=== PATIENT | female | born 1935 | race Caucasian/White ===

== ENCOUNTER → 2016-12-17 | Outpatient (CLI) | payer MEDICARE, BC ==
--- NOTE | 2016-12-17 13:22 | MM ---
Reason for exam: screening (asymptomatic). Last mammogram was performed 1 year ago. History: Patient is postmenopausal. Took estrogen for 15 years. Physical Findings: A clinical breast exam by your physician is recommended on an annual basis and results should be correlated with mammographic findings. MG 3D Screening Mammo W/Cad Bilateral CC and MLO view(s) were taken. Prior study comparison: December 17, 2015, bilateral MG 3d screening mammo w/cad. December 15, 2014, bilateral MG screening mammo w CAD. December 14, 2013, bilateral digital screening mammo w/CAD. The breast tissue is heterogeneously dense. This may lower the sensitivity of mammography. Finding: There are typically benign vascular calcifications in both breasts. There is no discrete abnormality. ASSESSMENT: Benign, BI-RAD 2 RECOMMENDATION: Routine screening mammogram of both breasts in 1 year.
== END | disposition home or self-care (01) ==
LOC: RADMAMWWP 10:58
PROVIDERS: ATTEND Internal Medicine
DX: Z12.31 Encounter for screening mammogram for malignant neoplasm of breast (principal)
CPT/HCPCS: 77063; G0202

== ENCOUNTER → 2017-12-23 | Outpatient (CLI) | payer MEDICARE ==
--- NOTE | 2017-12-25 10:30 | MM ---
Reason for exam: screening (asymptomatic). Last mammogram was performed 1 year ago. History: Patient is postmenopausal. Took estrogen for 15 years. Physical Findings: A clinical breast exam by your physician is recommended on an annual basis and results should be correlated with mammographic findings. MG 3D Screening Mammo W/Cad Bilateral CC and MLO view(s) were taken. Prior study comparison: December 17, 2016, bilateral MG 3d screening mammo w/cad. December 17, 2015, bilateral MG 3d screening mammo w/cad. The breast tissue is heterogeneously dense. This may lower the sensitivity of mammography. New right breast medial asymmetry at posterior depth measuring 3mm. ASSESSMENT: Incomplete: need additional imaging evaluation, BI-RAD 0 RECOMMENDATION: Special view mammogram of the right breast. If lesion persists on supplemental views, image directed ultrasound is recommended. [facility] will attempt to contact patient to return for supplemental views and ultrasound if indicated.
== END | disposition home or self-care (01) ==
LOC: RADMAMWWP 15:13
PROVIDERS: ATTEND Internal Medicine
DX: Z12.31 Encounter for screening mammogram for malignant neoplasm of breast (principal)
CPT/HCPCS: 77063; 77067

== ENCOUNTER → 2017-12-29 | Outpatient (CLI) | payer MEDICARE ==
--- NOTE | 2017-12-29 11:20 | MM ---
Reason for exam: additional evaluation requested from abnormal screening. Last mammogram was performed less than 1 month ago. History: Patient is postmenopausal and history of other cancer. Took estrogen for 15 years. Physical Findings: Nurse did not find any significant physical abnormalities on exam. MG 3D Work Up W/Cad RT CC, MLO, LM, and spot compression CC view(s) were taken of the right breast. Prior study comparison: December 23, 2017, bilateral MG 3d screening mammo w/cad. December 17, 2016, bilateral MG 3d screening mammo w/cad. The breast tissue is heterogeneously dense. This may lower the sensitivity of mammography. No distinct lesion persist on additional images. These results were verbally communicated with the patient and result sheet given to the patient on 12/29/17. ASSESSMENT: Benign, BI-RAD 2 RECOMMENDATION: Return to routine screening mammogram schedule for both breasts.
== END ==
LOC: RADMAMWWP 10:09
PROVIDERS: ATTEND Internal Medicine
DX: R92.8 Other abnormal and inconclusive findings on diagnostic imaging of breast (principal)
CPT/HCPCS: 77065; G0279

== ENCOUNTER → 2019-03-30 | Outpatient (CLI) | payer MEDICARE ==
--- NOTE | 2019-03-31 14:00 | MM ---
Reason for exam: screening (asymptomatic). Last mammogram was performed 1 year and 3 months ago. History: Patient is postmenopausal and history of other cancer. Took estrogen for 15 years. Physical Findings: A clinical breast exam by your physician is recommended on an annual basis and results should be correlated with mammographic findings. MG 3D Screening Mammo W/Cad Bilateral CC and MLO view(s) were taken. Prior study comparison: December 29, 2017, right breast MG 3d work up w/cad RT. December 23, 2017, bilateral MG 3d screening mammo w/cad. The breast tissue is heterogeneously dense. This may lower the sensitivity of mammography. Benign appearing bilateral calcifications. No suspicious abnormality. No significant changes when compared with prior studies. ASSESSMENT: Benign, BI-RAD 2 RECOMMENDATION: Routine screening mammogram of both breasts in 1 year.
== END | disposition home or self-care (01) ==
LOC: RADMAMWWP 10:43
PROVIDERS: ATTEND Internal Medicine
DX: Z12.31 Encounter for screening mammogram for malignant neoplasm of breast (principal)
CPT/HCPCS: 77063; 77067

== ENCOUNTER 2019-03-31 11:35 | Inpatient (IN) | payer MEDICARE ==
[2019-03-31] MEDS ORDERED: FUROSEMIDE 10 MG/ML 4 ML VIAL IV STA (11:48)
[2019-03-31] MEDS ORDERED: IPRATROPIUM-ALBUTEROL 3 ML NEB INHALATION STA ×2 (11:48→13:36)
[2019-03-31 12:13] LABS: Basophils % (A) 1 %; Eosinophils # (A) 0.1 k/uL (0-0.7); Eosinophils % (A) 1 %; HCT 37.5 % (34.0-46.0); HGB 11.8 gm/dL (11.4-16.0); Lymphocytes % (A) 15 %; MCHC 31.5 g/dL (31.0-37.0); MCV 92.2 fL (80.0-100.0); Mean Platelet Volume 7.6; Monocytes # (A) 0.5 k/uL (0-1.0); Monocytes % (A) 8 %; Neutrophils # (A) 4.6 k/uL (1.3-7.7); Neutrophils % (A) 73 %; Platelet Count 218 k/uL (150-450); RBC 4.06 m/uL (3.80-5.40); RDW 14.9 % (11.5-15.5); WBC 6.3 k/uL (3.8-10.6)
[2019-03-31 12:17] LABS: Albumin 3.8 g/dL (3.5-5.0); Calcium 9.2 mg/dL (8.4-10.2); Magnesium 2.1 mg/dL (1.6-2.3); Potassium 4.3 mmol/L (3.5-5.1); Total Bilirubin 1.4 mg/dL (0.2-1.3); Total Protein 6.4 g/dL (6.3-8.2)
[2019-03-31 12:25] LABS: INR 1.2 (<1.2); Partial Thromboplastin Time 24.7 sec (22.0-30.0); Prothrombin Time 12.7 sec (9.0-12.0)
--- NOTE | 2019-03-31 12:36 | ED ---
SOB HPI - General Chief Complaint: Shortness of Breath Stated Complaint: Fluid retention Time Seen by Provider: 03/31/19 11:47 Source: patient, RN notes reviewed Mode of arrival: wheelchair Limitations: no limitations - History of Present Illness Initial Comments: This is a 83-year-old female history of COPD who states she's been having shortness of breath past 3 days it is worse today she also has peripheral edema denies any fevers chills nausea vomiting sweats she does have a cough with no phlegm production she feels like she is full of fluid. He does have a history of chronic atrial fibrillation. She denies any other complaints this time other than some neck pain on the right it goes on into her shoulder does reproduce with certain movements. MD Complaint: shortness of breath, cough - Related Data Home Medications Medication Instructions Recorded Confirmed Aspirin 81 mg PO DAILY 12/30/14 03/31/19 Atenolol [Tenormin] 50 mg PO DAILY 12/30/14 03/31/19 Cholecalciferol [Vitamin D3 (25 1,000 unit PO DAILY@1200 12/31/14 03/31/19 Mcg = 1000 Iu)] Cyanocobalamin [Vitamin B-12] 500 mcg PO DAILY@1200 12/31/14 03/31/19 Magnesium 200 mg PO DAILY 12/31/14 03/31/19 Fluticasone/Salmeterol [Advair 1 puff INHALATION RT-BID 04/09/16 03/31/19 250-50 Diskus] Tiotropium [place] [Spiriva 4 gm INHALATION RT-DAILY 04/09/16 03/31/19 Respimat] Cephalexin [Keflex] 250 mg PO TID 03/31/19 03/31/19 Furosemide [Lasix] 20 mg PO BID 03/31/19 03/31/19 Allergies Allergy/AdvReac Type Severity Reaction Status Date / Time No Known Allergies Allergy Verified 03/31/19 12:22 Review of Systems ROS Statement: Those systems with pertinent positive or pertinent negative responses have been documented in the HPI. ROS Other: All systems not noted in ROS Statement are negative. Past Medical History Past Medical History: Coronary Artery Disease (CAD), COPD History of Any Multi-Drug Resistant Organisms: None Reported Past Surgical History: Coronary Bypass/CABG, Tonsillectomy Additional Past Surgical History / Comment(s): diverticulitis, subdural hematoma, CABG apx. 30 years ago, bladder sling apx 2005 Past Psychological History: No Psychological Hx Reported Smoking Status: Former smoker Past Alcohol Use History: Daily Past Drug Use History: None Reported - Past Family History Father Family Medical History: Congestive Heart Failure (CHF), Hypertension Additional Family Medical History / Comment(s): aneurysm Mother Family Medical History: Hypertension General Exam - General Exam Comments Initial Comments: This a well-developed well-nourished awake alert oriented 3 female Limitations: no limitations General appearance: alert, anxious Head exam: Present: atraumatic, normocephalic, normal inspection Eye exam: Present: normal appearance, PERRL, EOMI. Absent: scleral icterus, conjunctival injection, periorbital swelling ENT exam: Present: normal exam, mucous membranes moist Neck exam: Present: normal inspection. Absent: tenderness, meningismus, lymphadenopathy Respiratory exam: Present: wheezes, decreased breath sounds, other (Dullness to the right base). Absent: respiratory distress, rales, rhonchi, stridor Cardiovascular Exam: Present: irregular rhythm. Absent: systolic murmur, diastolic murmur, rubs, gallop, clicks GI/Abdominal exam: Present: soft, normal bowel sounds. Absent: distended, tenderness, guarding, rebound, rigid Extremities exam: Present: normal inspection, full ROM, normal capillary refill. Absent: tenderness, pedal edema, joint swelling, calf tenderness Back exam: Present: normal inspection Neurological exam: Present: alert, oriented X3, CN II-XII intact Psychiatric exam: Present: normal affect, normal mood Skin exam: Present: warm, dry, intact, normal color. Absent: rash Course Vital Signs 03/31/19 03/31/19 03/31/19 11:35 12:01 12:05 Temperature 97.5 F L Pulse Rate 75 63 64 Respiratory 20 20 Rate Blood Pressure 106/69 149/84 O2 Sat by Pulse 79 L 98 Oximetry 03/31/19 03/31/19 03/31/19 12:12 12:38 13:44 Temperature Pulse Rate 65 68 68 Respiratory 18 Rate Blood Pressure 144/82 O2 Sat by Pulse 99 Oximetry 03/31/19 13:57 Temperature Pulse Rate 68 Respiratory Rate Blood Pressure O2 Sat by Pulse Oximetry - Reevaluation(s) Reevaluation #1: 03/31/19 13:56 Reevaluation the patient after initial treatment finds that she feels slightly better though on examination she still demonstrates markedly diminished breath sounds with wheezing especially the left side there is some mild dullness in the right base also. Reevaluation #2: 03/31/19 14:24 Patient has updrafts. Medical Decision Making - Medical Decision Making I did discuss the findings with the patient family and with Dr. ignacia hope. Patient be admitted with consultation by cardiology and pulmonary medicine - Lab Data Result diagrams: 03/31/19 11:54 03/31/19 11:54 Lab Results 03/31/19 03/31/19 03/31/19 Range/Units 11:54 11:54 11:54 WBC 6.3 (3.8-10.6) k/uL RBC 4.06 (3.80-5.40) m/uL Hgb 11.8 (11.4-16.0) gm/dL Hct 37.5 (34.0-46.0) % MCV 92.2 (80.0-100.0) fL MCH 29.0 (25.0-35.0) pg MCHC 31.5 (31.0-37.0) g/dL RDW 14.9 (11.5-15.5) % Plt Count 218 (150-450) k/uL Neutrophils % 73 % Lymphocytes % 15 % Monocytes % 8 % Eosinophils % 1 % Basophils % 1 % Neutrophils # 4.6 (1.3-7.7) k/uL Lymphocytes # 1.0 (1.0-4.8) k/uL Monocytes # 0.5 (0-1.0) k/uL Eosinophils # 0.1 (0-0.7) k/uL Basophils # 0.0 (0-0.2) k/uL PT (9.0-12.0) sec INR (<1.2) APTT (22.0-30.0) sec Sodium 134 L (137-145) mmol/L Potassium 4.3 (3.5-5.1) mmol/L Chloride 99 (98-107) mmol/L Carbon Dioxide 24 (22-30) mmol/L Anion Gap 11 mmol/L BUN 21 H (7-17) mg/dL Creatinine 0.88 (0.52-1.04) mg/dL Est GFR (CKD-EPI)AfAm 70 (>60 ml/min/1.73 sqM) Est GFR (CKD-EPI)NonAf 61 (>60 ml/min/1.73 sqM) Glucose 112 H (74-99) mg/dL Calcium 9.2 (8.4-10.2) mg/dL Magnesium 2.1 (1.6-2.3) mg/dL Total Bilirubin 1.4 H (0.2-1.3) mg/dL AST 29 (14-36) U/L ALT 16 (9-52) U/L Alkaline Phosphatase 87 (38-126) U/L Troponin I (0.000-0.034) ng/mL NT-Pro-B Natriuret Pep 8490 pg/mL Total Protein 6.4 (6.3-8.2) g/dL Albumin 3.8 (3.5-5.0) g/dL 03/31/19 03/31/19 Range/Units 11:54 11:54 WBC (3.8-10.6) k/uL RBC (3.80-5.40) m/uL Hgb (11.4-16.0) gm/dL Hct (34.0-46.0) % MCV (80.0-100.0) fL MCH (25.0-35.0) pg MCHC (31.0-37.0) g/dL RDW (11.5-15.5) % Plt Count (150-450) k/uL Neutrophils % % Lymphocytes % % Monocytes % % Eosinophils % % Basophils % % Neutrophils # (1.3-7.7) k/uL Lymphocytes # (1.0-4.8) k/uL Monocytes # (0-1.0) k/uL Eosinophils # (0-0.7) k/uL Basophils # (0-0.2) k/uL PT 12.7 H (9.0-12.0) sec INR 1.2 H (<1.2) APTT 24.7 (22.0-30.0) sec Sodium (137-145) mmol/L Potassium (3.5-5.1) mmol/L Chloride (98-107) mmol/L Carbon Dioxide (22-30) mmol/L Anion Gap mmol/L BUN (7-17) mg/dL Creatinine (0.52-1.04) mg/dL Est GFR (CKD-EPI)AfAm (>60 ml/min/1.73 sqM) Est GFR (CKD-EPI)NonAf (>60 ml/min/1.73 sqM) Glucose (74-99) mg/dL Calcium (8.4-10.2) mg/dL Magnesium (1.6-2.3) mg/dL Total Bilirubin (0.2-1.3) mg/dL AST (14-36) U/L ALT (9-52) U/L Alkaline Phosphatase (38-126) U/L Troponin I <0.012 (0.000-0.034) ng/mL NT-Pro-B Natriuret Pep pg/mL Total Protein (6.3-8.2) g/dL Albumin (3.5-5.0) g/dL - EKG Data -: EKG Interpreted by Me (Atrial fibrillation rate is 70 QRS 84 QT since QTC 432/466 poor R-wave prog) - Radiology Data Radiology results: report reviewed (I did review the imaging and report evidence of small pleural effusions increased pulmonary vascular markings), image reviewed Critical Care Time Critical Care Time: Yes Critical Care Time: 35 minutes of critical care time which includes initial presentation with history physical labs x-rays several reevaluation the patient response to therapy review of old charting discussed with family and patient regarding findings discussion with the main physician admission orders and documentation of the above Disposition Clinical Impression: Systolic congestive heart failure, Acute exacerbation of chronic obstructive airways disease, Adult respiratory distress syndrome Disposition: ADMITTED IP TO THIS [facility] Condition: Fair Referrals: Danilo Marrero MD [Primary Care Provider] - 1-2 days
[2019-03-31] MEDS ORDERED: methylPREDNISolone SOD SUCCI 125 MG/2 ML VIAL IV STA (13:37)
--- NOTE | 2019-03-31 13:37 | XR ---
EXAMINATION TYPE: XR chest 2V DATE OF EXAM: 03/31/2019 COMPARISON: 04/09/2016 HISTORY: Difficulty breathing. Bilateral lower extremity edema with history of congestive heart failu re. TECHNIQUE: Frontal and lateral views of the chest are obtained. FINDINGS: Cardia mediastinal silhouette is enlarged. Trace bilateral pleural effusions are seen, rig ht greater than left. Peripheral predominant reticular opacities are unchanged from the prior represe nting interstitial lung disease and probable fibrosis. Pulmonary vascular congestion has occurred in the interim and is mild. Postsurgical changes of the chest are seen. Cholecystectomy clips are noted. Osseous demineralization is present with mild degenerative changes of the spine. Slight nodular dens ity in the right midlung may represent prominent pulmonary vasculature. IMPRESSION: 1. Trace bilateral pleural effusions and mild pulmonary vascular congestion on the basis of congestiv e heart failure. Interstitial lung disease and underlying fibrosis are similar to the prior. 2. Slight nodular density of the right midlung may represent prominent pulmonary vasculature. Attenti on on follow-up exams.
[2019-03-31] MEDS: CEPHALEXIN 250 MG CAP PO SCH ×2 (16:46→20:02)
--- NOTE | 2019-03-31 16:52 | P.CNPUL ---
History of Present Illness Consult date: 03/31/19 Requesting physician: Danilo Marrero Reason for consult: COPD Chief complaint: Shortness of breath and fluid retention History of present illness: This is an 83-year-old female with history of moderate COPD, FEV1 is in the range of 64%, FEV1/FVC is 57%, patient normally sees Dr. rodriguez for her COPD, and she is O2 dependent, not prednisone dependent. Maintained normally on Advair, Ventolin, Spiriva, and intermittently has been on prednisone for episodes of COPD exacerbation. Patient presented to the ER with 3 days history of increased shortness of breath, fluid retention and swelling in her lower extremities, denies any productive cough, she has occasional dry cough, denies any fever, no chills, no nausea no vomiting, no abdominal pain. Patient felt that she was full of fluid, and she is also known to have history of chronic atrial fibrillation and diastolic congestive heart failure. Her chest x-ray on admission showed trace of bilateral pleural effusions, and mild pulmonary vas cular congestion. Patient was admitted with the impression of congestive heart failure, and we were asked to see her on consultation. She was placed on bronchodilators, diuretics. And she is responding already to treatment. She had a relatively normal CBC. Normal electrolytes, And normal renal profile. Troponin was normal, BNP level was elevated at 8490. Looking at her previous echocardiogram from 2014, patient seems to have severe pulmonary hypertension, right-sided pressures are in the range of 79. She had good LV function. Review of Systems Constitutional: Denies chills, Denies fever Eyes: denies blurred vision, denies pain Ears, nose, mouth and throat: Denies headache, Denies sore throat Cardiovascular: Reports leg edema, and shortness of breath. Respiratory: Complaining of shortness of breath with any activity. Occasional dry cough. No fever no chills no hemoptysis and no chest pain. Gastrointestinal: Denies abdominal pain, Denies diarrhea, Denies nausea, Denies vomiting Musculoskeletal: Denies myalgias Integumentary: Denies pruritus, Denies rash complaining mostly of swelling in lower extremities. Neurological: Denies numbness, Denies weakness Psychiatric: Denies anxiety, Denies depression Endocrine: Denies fatigue, complaining of increased weight and fluid retention. Past Medical History Past Medical History: Coronary Artery Disease (CAD), COPD History of Any Multi-Drug Resistant Organisms: None Reported Past Surgical History: Coronary Bypass/CABG, Tonsillectomy Additional Past Surgical History / Comment(s): diverticulitis, subdural hematoma, CABG apx. 30 years ago, bladder sling apx 2005 Past Anesthesia/Blood Transfusion Reactions: No Reported Reaction Smoking Status: Former smoker - Past Family History Father Family Medical History: Congestive Heart Failure (CHF), Hypertension Additional Family Medical History / Comment(s): aneurysm Mother Family Medical History: Hypertension Medications and Allergies Home Medications Medication Instructions Recorded Confirmed Type Aspirin 81 mg PO DAILY 12/30/14 03/31/19 History Atenolol [Tenormin] 50 mg PO DAILY 12/30/14 03/31/19 History Cholecalciferol [Vitamin D3 (25 1,000 unit PO DAILY@1200 12/31/14 03/31/19 History Mcg = 1000 Iu)] Cyanocobalamin [Vitamin B-12] 500 mcg PO DAILY@1200 12/31/14 03/31/19 History Magnesium 200 mg PO DAILY 12/31/14 03/31/19 History Fluticasone/Salmeterol [Advair 1 puff INHALATION RT-BID 04/09/16 03/31/19 History 250-50 Diskus] Tiotropium [place] [Spiriva 4 gm INHALATION RT-DAILY 04/09/16 03/31/19 History Respimat] Cephalexin [Keflex] 250 mg PO TID 03/31/19 03/31/19 History Furosemide [Lasix] 20 mg PO BID 03/31/19 03/31/19 History Allergies Allergy/AdvReac Type Severity Reaction Status Date / Time No Known Allergies Allergy Verified 03/31/19 12:22 Physical Exam Vitals: Vital Signs Temp Pulse Pulse Resp BP BP Pulse Ox 03/31/19 15:30 97.4 F L 79 20 164/76 96 03/31/19 14:57 61 18 172/81 99 03/31/19 13:57 68 03/31/19 13:44 68 03/31/19 12:38 68 18 144/82 99 03/31/19 12:12 65 03/31/19 12:05 64 20 149/84 98 03/31/19 12:01 63 03/31/19 11:35 97.5 F L 75 20 106/69 79 L Intake and Output 03/31/19 03/31/19 03/31/19 06:59 14:59 22:59 Other: Weight 54.431 kg Gen.: Revealed a 83-year-old female in no form of distress. HEAD: Normocephalic/atraumatic. EYES: Normal reaction of pupils, equal size. Conjunctiva pink, sclera white. NOSE: Clear with pink turbinates. THROAT: No erythema or exudates. NECK: No masses, positive JVD, no thyroid enlargement, no adenopathy. CHEST: No chest wall deformity. Symmetrical expansion. LUNGS: Equal air entry minimal crackles at the bases, minimal wheezing on forced expiratory maneuver only. CVS: Regular rate and rhythm, normal S1 and S2. 2/6 systolic murmur thought the precordium. ABDOMEN: Soft, nontender. No hepatosplenomegaly, normal bowel sounds, no guarding or rigidity. EXTREMITIES: No clubbing, 2+ bipedal edema, no cyanosis, 2+ pulses and upper and lower extremities. MUSCULOSKELETAL: Muscle strength and tone normal. SPINE: No scoliosis or deformity SKIN: No rashes CENTRAL NERVOUS SYSTEM: Alert and oriented -3. No focal deficits, tone is no rmal in all 4 extremities. PSYCHIATRIC: Alert and oriented -3. Appropriate affect. Intact judgment and insight. Results - Laboratory Findings CBC and BMP: 03/31/19 11:54 03/31/19 11:54 PT/INR, D-dimer PT 12.7 sec (9.0-12.0) H 03/31/19 11:54 INR 1.2 (<1.2) H 03/31/19 11:54 Abnormal lab findings: Abnormal Labs 03/31/19 03/31/19 11:54 11:54 PT 12.7 H INR 1.2 H Sodium 134 L BUN 21 H Glucose 112 H Total Bilirubin 1.4 H - Diagnostic Findings Chest x-ray: image reviewed (As noted in HPI.) Assessment and Plan Assessment: Impression: 1 acute diastolic congestive heart failure 2 acute on chronic cor pulmonale 3 acute exacerbation of moderate COPD 4 chronic hypoxic respiratory failure, maintained on oxygen at home. 5 benign essential hypertension 6 history of subdural hematoma 7 history of CABG 8 former smoker. Recommendation: Agree with Lasix 40 mg IV push every 12 hours, agree with ipratropium bromide and albuterol 4 times a day and when necessary, agree with methylprednisolone 60 mg IV push every 6 hours, resume home meds, monitor daily weights and strict I's and O's, will follow. Patient is expected to do well in the next 24-48 hours. Time with Patient: Greater than 30
[2019-03-31] MEDS ORDERED: ONDANSETRON 4 MG/2 ML VIAL IVP PRN (17:17)
[2019-03-31] MEDS ORDERED: NALOXONE 0.4 MG/ML 1 ML VIAL IV PRN (17:17)
[2019-03-31] MEDS ORDERED: MELATONIN 3 MG TABLET PO PRN (17:17)
[2019-03-31] MEDS ORDERED: ACETAMINOPHEN TAB 325 MG TAB PO PRN (17:17)
[2019-03-31] MEDS ORDERED: ALBUTEROL NEBULIZED 2.5 MG/3 ML INHALATION PRN (17:20)
--- NOTE | 2019-03-31 17:21 | P.HPIM ---
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 In the ER she underwent an extensive evaluation. On arrival she was found to be hypoxic with an O2 sat of 79% on her chronic 2 L. Laboratory analysis was reviewed and remarkable for a low sodium of 134, slightly elevated bilirubin at 1.4, and BNP was significantly elevated at 8490. Her troponin was negative. Chest x-ray was consistent with signs of fluid overload. She was given Solu-Medrol, bronchodilators, and Lasix in the emergency department. She was admitted for further monitoring. Patient seen and examined at bedside with family present. She reports that she has chronic shortness of breath secondary to her COPD. Over the last 1-2 weeks she has had significant worsening of her shortness of breath. It has increased significantly over the last 5 days. It is worse with exertion or when laying flat. It is associated with a dry cough and feeling as though she has fluid in her lungs. She has had two-pillow orthopnea as well as paroxysmal nocturnal dyspnea. She reports lower extremity edema which has been increasing over the last 5-6 days. She has gained approximately 15 pounds over the last month. She reports some palpitations with exertion. She has been feeling lightheaded and dizzy when she gets significantly short of breath. She has had some overall weakness but nothing focal. She reports that she was recently diagnosed with a urinary tract infection by Dr. Castilloka was started on antibiotic 3 days ago. She suffers with chronic intermittent diarrhea and constipation and recently has been constipated. She has had difficulty sleeping secondary to shortness of breath. She denies any recent changes in her medications other than the antibiotic. She has no other complaints currently. Review of Systems Pertinent positives and negatives as discussed in HPI, a complete review of systems was performed and all other systems are negative. Past Medical History Past Medical History: Coronary Artery Disease (CAD), COPD Additional Past Medical History / Comment(s): Hypertension, dyslipidemia, irregular heartbeat, chronic hypoxic respiratory failure on 2 L nasal cannula, severe pulmonary hypertension, diverticulitis History of Any Multi-Drug Resistant Organisms: None Reported Past Surgical History: Coronary Bypass/CABG, Tonsillectomy Additional Past Surgical History / Comment(s): subdural hematoma, CABG apx. 30 years ago, bladder sling apx 2004 Past Anesthesia/Blood Transfusion Reactions: No Reported Reaction Smoking Status: Former smoker Past Alcohol Use History: Daily Past Drug Use History: None Reported Additional History: Lives alone has been using a cane recently. Drinks 1-2 beers or glasses of wine nightly. - Past Family History Father Family Medical History: Congestive Heart Failure (CHF), Hypertension Additional Family Medical History / Comment(s): aneurysm Mother Family Medical History: Hypertension Medications and Allergies Home Medications Medication Instructions Recorded Confirmed Type Aspirin 81 mg PO DAILY 12/30/14 03/31/19 History Atenolol [Tenormin] 50 mg PO DAILY 12/30/14 03/31/19 History Cholecalciferol [Vitamin D3 (25 1,000 unit PO DAILY@1200 12/31/14 03/31/19 History Mcg = 1000 Iu)] Cyanocobalamin [Vitamin B-12] 500 mcg PO DAILY@1200 12/31/14 03/31/19 History Magnesium 200 mg PO DAILY 12/31/14 03/31/19 History Fluticasone/Salmeterol [Advair 1 puff INHALATION RT-BID 04/09/16 03/31/19 History 250-50 Diskus] Tiotropium [place] [Spiriva 4 gm INHALATION RT-DAILY 04/09/16 03/31/19 History Respimat] Cephalexin [Keflex] 250 mg PO TID 03/31/19 03/31/19 History Furosemide [Lasix] 20 mg PO BID 03/31/19 03/31/19 History Allergies Allergy/AdvReac Type Severity Reaction Status Date / Time No Known Allergies Allergy Verified 03/31/19 12:22 Physical Exam Osteopathic Statement: *. No significant issues noted on an osteopathic structural exam other than those noted in the History and Physical/Consult. Vitals: Vital Signs Temp Pulse Pulse Resp BP BP Pulse Ox 03/31/19 15:30 97.4 F L 79 20 164/76 96 03/31/19 14:57 61 18 172/81 99 03/31/19 13:57 68 03/31/19 13:44 68 03/31/19 12:38 68 18 144/82 99 03/31/19 12:12 65 03/31/19 12:05 64 20 149/84 98 03/31/19 12:01 63 03/31/19 11:35 97.5 F L 75 20 106/69 79 L Intake and Output 03/31/19 03/31/19 03/31/19 06:59 14:59 22:59 Other: Weight 54.431 kg General: non toxic, no distress, appears at stated age, normal weight Derm: Multiple areas of ecchymoses, no unusual rashes/lesions, warm, dry Head: atraumatic, normocephalic, symmetric Eyes: EOMI, no lid lag, anicteric sclera, pupils equal round reactive to light ENT: Nose and ears atraumatic, no thrush, no pharyngeal erythema Neck: No thyromegaly, no cervical lymphadenopathy, trachea midline, supple Mouth: no lip lesion, mucus membranes moist Cardiovascular: S1-S2 irregular, no murmur, positive posterior tibial pulse bilateral, 3+ edema, capillary refill less than 2 seconds Lungs: crackles bilateral, no rhonchi, no rales , no accessory muscle use Abdominal: soft, nontender to palpation, no guarding, no appreciable organomegaly, normal bowel sounds Ext: no gross muscle atrophy, muscle strength 5 out of 5 in all 4 extremities grossly, no contractures, Neuro: CN II-XI grossly intact, light touch intact all 4 extremities, finger to nose within normal limits, Psych: Alert, oriented, appropriate affect Results CBC & Chem 7: 03/31/19 11:54 03/31/19 11:54 Labs: Abnormal Lab Results - Last 24 Hours (Table) 03/31/19 03/31/19 Range/Units 11:54 11:54 PT 12.7 H (9.0-12.0) sec INR 1.2 H (<1.2) Sodium 134 L (137-145) mmol/L BUN 21 H (7-17) mg/dL Glucose 112 H (74-99) mg/dL Total Bilirubin 1.4 H (0.2-1.3) mg/dL Chest x-ray: report reviewed Thrombosis Risk Factor Assmnt - DVT/VTE Prophylaxis DVT/VTE Prophylaxis: Pharmacologic Prophylaxis ordered - Choose All That Apply Each Factor Represents 1 point: Heart failure (<1month) Each Risk Factor Represents 3 Points: Age 75 years or older Thrombosis Risk Factor Assessment Total Risk Factor Score: 4 Thrombosis Risk Factor Assessment Level: Moderate Risk Assessment and Plan Assessment: Acute exacerbation of CHF, new diagnosis -Check echo -Lasix IV push -Strict I's and O's, daily weights -Cardiology consultation-sees Dr. Garcia outpatient setting -Continue with atenolol -Await echocardiogram and start ANNE inhibitor is indicated COPD without exacerbation -Stop IV steroids as this appears to be more consistent with CHF exacerbation -Continue with home bronchodilators Chronic A fib - not on anticoagulation at baseline - Tele - Atenolol Acute on chronic hypoxic respiratory failure -Secondary to acute fluid overload -Continue with diuresis -Wean O2 as able Hypertension, controlled -Continue with atenolol -Continue to follow blood pressures History of dyslipidemia -Has refused cholesterol medications in the past -Reached peak cholesterol profile The patient is admitted with an anticipated greater than 2 midnight stay for evaluation of Acute CHF. Surrogate decision-maker: Daughters CODE STATUS:DNR, family aware DVT prophylaxis: Lovenox Discussed with: Patient, family, nursing, ed physician Anticipated discharge date: 2-[address]: home with home health A total of 65 minutes was spent on the care of this complex patient more than 50% of the time was spent in counseling and care coordination.
[2019-03-31] MEDS ORDERED: methylPREDNISolone SOD SUCCI 125 MG/2 ML VIAL IV SCH (18:00)
[2019-03-31] MEDS: FUROSEMIDE 10 MG/ML 4 ML VIAL IV SCH (20:02)
[2019-03-31] MEDS: IPRATROPIUM-ALBUTEROL 3 ML NEB INHALATION SCH (20:21)
[2019-03-31] MEDS: SYMBICORT 80-4.5 MCG INHALER INHALATION SCH (20:25)
[2019-03-31] MEDS ORDERED: FUROSEMIDE 20 MG TAB PO SCH (21:00)
[2019-04-01] MEDS: IPRATROPIUM-ALBUTEROL 3 ML NEB INHALATION SCH ×5 (00:44→20:37)
[2019-04-01 02:54] LABS: Calcium 8.9 mg/dL (8.4-10.2); Magnesium 1.8 mg/dL (1.6-2.3); Potassium 3.4 mmol/L (3.5-5.1)
[2019-04-01] MEDS: MAGNESIUM OXIDE 400 MG TAB PO SCH (08:00)
[2019-04-01] MEDS ORDERED: TIOTROPIUM BROMIDE 4 GM INHALATION SCH (08:00)
[2019-04-01] MEDS: CEPHALEXIN 250 MG CAP PO SCH ×3 (08:00→21:12)
[2019-04-01] MEDS: FUROSEMIDE 10 MG/ML 4 ML VIAL IV SCH (08:01)
[2019-04-01] MEDS: ASPIRIN 325 MG TAB PO SCH (08:01)
[2019-04-01] MEDS: ATENOLOL 50 MG TAB PO SCH (08:01)
[2019-04-01] MEDS: CYANOCOBALAMIN 500 MCG TAB PO SCH (08:01)
[2019-04-01] MEDS: CHOLECALCIFEROL 1,000 UNIT TAB PO SCH (08:01)
[2019-04-01] MEDS: ENOXAPARIN 40 MG/0.4 ML SYRINGE SQ SCH (08:02)
[2019-04-01] MEDS ORDERED: POTASSIUM BICARBONATE/CIT AC 20 MEQ TABLET.EFF PO ONE (08:03)
[2019-04-01] MEDS: SYMBICORT 80-4.5 MCG INHALER INHALATION SCH ×2 (08:33→20:37)
[2019-04-01] MEDS: LISINOPRIL 5 MG TAB PO SCH (11:43)
--- NOTE | 2019-04-01 12:01 | ECHOF ---
Referral Reason:CHF MEASUREMENTS -------- HEIGHT: 157.5 cm WEIGHT: 49.0 kg BP: 133/78 RVIDd: 2.9 cm (< 3.3) IVSd: 1.0 cm (0.6 - 1.1) LVIDd: 4.7 cm (3.9 - 5.3) LVPWd: 0.9 cm (0.6 - 1.1) IVSs: 1.4 cm LVIDs: 2.7 cm LVPWs: 1.5 cm LA Diam: 4.6 cm (2.7 - 3.8) LAESV Index (A-L): 54.13 ml/m Ao Diam: 3.5 cm (2.0 - 3.7) AV Cusp: 2.3 cm (1.5 - 2.6) MV EXCURSION: 25.336 mm (> 18.000) MV EF SLOPE: 141 mm/s (70 - 150) EPSS: 1.1 cm MV E Marques: 1.17 m/s MV DecT: 135 ms MV A Marques: 0.41 m/s MV E/A Ratio: 2.84 AR PHT: 611 ms RAP: 15.00 mmHg RVSP: 63.56 mmHg FINDINGS -------- Sinus rhythm. This was a technically good study. The left ventricular size is normal. Left ventricular wall thickness is normal. Overall left vent ricular systolic function is normal with, an EF between 60 - 65 %. Diastolic dysfunction The right ventricle is normal in size. LA is severely dilated >40 ml/m2 The right atrium is normal in size. Interatrial and interventricular septum intact. Aortic valve is trileaflet and is mildly thickened. There is [id number] aortic regurgitation. The mitral valve leaflets are mildly thickened. Mild mitral regurgitation is present. Moderate tricuspid regurgitation present. There is severe pulmonary hypertension. The right ventr icular systolic pressure, as measured by Doppler, is 63.56mmHg. Trace/mild (physiologic) pulmonic regurgitation. The aortic root size is normal. The inferior vena cava is dilated with no significant inspiratory collapse which is consistent estima janeen right atrial pressure of >15 mmHg. There is no pericardial effusion. CONCLUSIONS -------- 1. Sinus rhythm. 2. This was a technically good study. 3. The left ventricular size is normal. 4. Left ventricular wall thickness is normal. 5. Overall left ventricular systolic function is normal with, an EF between 60 - 65 %. 6. Diastolic dysfunction 7. The right ventricle is normal in size. 8. LA is severely dilated >40 ml/m2 9. The right atrium is normal in size. 10. Interatrial and interventricular septum intact. 11. Aortic valve is trileaflet and is mildly thickened. 12. There is [id number] aortic regurgitation. 13. The mitral valve leaflets are mildly thickened. 14. Mild mitral regurgitation is present. 15. Moderate tricuspid regurgitation present. 16. There is severe pulmonary hypertension. 17. The right ventricular systolic pressure, as measured by Doppler, is 63.56mmHg. 18. Trace/mild (physiologic) pulmonic regurgitation. 19. The aortic root size is normal. 20. The inferior vena cava is dilated with no significant inspiratory collapse which is consistent es timated right atrial pressure of >15 mmHg. 21. There is no pericardial effusion. FORENSIC ARTIST: Elba Nevarez RDCS
--- NOTE | 2019-04-01 12:05 | P.PN ---
Subjective Progress Note Date: 04/01/19 Principal diagnosis: Acute on chronic hypoxic respiratory failure secondary to an acute exacerbation of diastolic congestive heart failure, acute exacerbation of cor pulmonale, acu te exacerbation of COPD This is an 83-year-old female with history of moderate COPD, FEV1 is in the range of 64%, FEV1/FVC is 57%, patient normally sees Dr. rodriguez for her COPD, and she is O2 dependent, not prednisone dependent. Maintained normally on Advair, Ventolin, Spiriva, and intermittently has been on prednisone for episodes of COPD exacerbation. Patient presented to the ER with 3 days history of increased shortness of breath, fluid retention and swelling in her lower extremities, denies any productive cough, she has occasional dry cough, denies any fever, no chills, no nausea no vomiting, no abdominal pain. Patient felt that she was full of fluid, and she is also known to have history of chronic atrial fibrillation and diastolic congestive heart failure. Her chest x-ray on admi ssion showed trace of bilateral pleural effusions, and mild pulmonary vascular congestion. Patient was admitted with the impression of congestive heart failure, and we were asked to see her on consultation. She was placed on bronchodilators, diuretics. And she is responding already to treatment. She had a relatively normal CBC. Normal electrolytes, And normal renal profile. Troponin was normal, BNP level was elevated at 8490. Looking at her previous echocardiogram from 2014, patient seems to have severe pulmonary hypertension, right-sided pressures are in the range of 79. She had good LV function. The patient is seen today 04/01/2019 in follow-up on the selective care unit. She is currently resting comfortably in bed. Breathing easier today as compared to yesterday. She is maintaining good O2 saturations in the high 90s on 3 L/m per nasal cannula. She's been afebrile. Hemodynamically stable. She is in a negative balance. Her weight is down. Her lower extremity edema has improved. She remains on Lasix 40 mg IV push every 12 hours. Sodium 133. Potassium 3.4. Creatinine 0.84. Objective - Vital Signs Vital signs: Vital Signs Temp 96.1 F L 04/01/19 08:00 Pulse 65 04/01/19 08:46 Resp 18 04/01/19 08:00 BP 134/67 04/01/19 08:00 Pulse Ox 99 04/01/19 08:33 Intake & Output 03/31/19 04/01/19 04/01/19 18:59 06:59 18:59 Intake Total 240 120 120 Output Total 700 200 Balance 240 -580 -80 Weight 54.431 kg 49.4 kg Intake: Oral 240 120 120 Output: Urine 700 200 Other: Voiding Method Toilet Toilet # Voids 1 1 - Exam Gen.: A very pleasant 83-year-old female in no form of distress. On 3 L nasal cannula. HEAD: Normocephalic/atraumatic. EYES: Normal reaction of pupils, equal size. Conjunctiva pink, sclera white. NOSE: Clear with pink turbinates. THROAT: No erythema or exudates. NECK: No masses, positive JVD, no thyroid enlargement, no adenopathy. CHEST: No chest wall deformity. Symmetrical expansion. LUNGS: Equal air entry minimal crackles at the bases, minimal wheezing on forced expiratory maneuver only. CVS: Regular rate and rhythm, normal S1 and S2. 2/6 systolic murmur thought the precordium. ABDOMEN: Soft, nontender. No hepatosplenomegaly, normal bowel sounds, no guarding or rigidity. EXTREMITIES: No clubbing, 1-2+ bipedal edema, no cyanosis, 2+ pulses and upper and lower extremities. MUSCULOSKELETAL: Muscle strength and tone normal. SPINE: No scoliosis or deformity SKIN: No rashes CENTRAL NERVOUS SYSTEM: No focal deficits, tone is normal in all 4 extremities. PSYCHIATRIC: Alert and oriented -3. Appropriate affect. Intact judgment and insight. - Labs CBC & Chem 7: 03/31/19 11:54 04/01/19 02:26 Labs: Abnormal Lab Results - Last 24 Hours (Table) 03/31/19 03/31/19 04/01/19 Range/Units 11:54 11:54 02:26 PT 12.7 H (9.0-12.0) sec INR 1.2 H (<1.2) Sodium 134 L 133 L (137-145) mmol/L Potassium 3.4 L (3.5-5.1) mmol/L Chloride 97 L (98-107) mmol/L BUN 21 H 25 H (7-17) mg/dL Glucose 112 H 201 H (74-99) mg/dL Total Bilirubin 1.4 H (0.2-1.3) mg/dL Assessment and Plan Assessment: Impression: #1 Acute on chronic hypoxic respiratory failure secondary to an acute exacerbation of diastolic congestive heart failure, acute exacerbation of chronic cor pulmonale, acute exacerbation of moderate chronic obstructive pulmonary disease. #2 History of hypertension. #3 History of subdural hematoma. #4 Coronary artery disease with previous coronary artery bypass grafting. #5 Former smoker. Plan: The patient was seen and evaluated by Dr. Rapp. She is improved from the pulmonary standpoint. We'll continue with her current treatment plan including IV diuretics, IV steroids, bronchodilators. Continue to monitor I&O. Increase her activity as tolerated. We'll continue to follow. I, the cosigning physician, performed a history & physical examination of the patient. Lungs sounds with basilar crackles. Maintaining good O2 saturations in the 90s on 3 L/m per nasal cannula. I discussed the assessment and plan of care with my nurse practitioner, Deja Monreal. I attest to the above note as dictated by her.
--- NOTE | 2019-04-01 13:44 | P.PN ---
Subjective Progress Note Date: 04/01/19 (Delayed charting) Principal diagnosis: Shortness of breath Patient is a 83-year-old female with a past medical history of severe COPD on chronic oxygen at 2 L nasal cannula, irregular heartbeat, coronary artery disease with history of one-vessel bypass, hypertension, and dyslipidemia who presented to the emergency department with complaints of shortness of breath. In the ER she underwent an extensive evaluation. On arrival she was found to be hypoxic with an O2 sat of 79% on her chronic 2 L. Laboratory analysis was reviewed and remarkable for a low sodium of 134, slightly elevated bilirubin at 1.4, and BNP was significantly elevated at 8490. Her troponin was negative. Chest x-ray was consistent with signs of fluid overload. She was given Solu-Medrol, bronchodilators, and Lasix in the emergency department. She was admitted for further monitoring. She was continued on IV Lasix, she was already on a beta sravani, no ANNE inhibitor was started as echocardiogram was not yet available. Echo shows diastolic dysfunction with severe pulmonary hypertension likely resultant cor pulmonale. Cardiology was consulted. Pulmonary was consulted. Patient seen and examined at bedside. She states her breathing and lower extremity edema are much better than yesterday. She denies any chest discomfort, nausea, vomiting, or diarrhea. She has no other complaints currently. Objective - Vital Signs Vital signs: Vital Signs Temp 96.9 F L 04/01/19 12:00 Pulse 74 04/01/19 12:09 Resp 18 04/01/19 12:00 BP 148/67 04/01/19 12:00 Pulse Ox 94 L 04/01/19 12:00 Intake & Output 03/31/19 04/01/19 04/01/19 18:59 06:59 18:59 Intake Total 240 120 120 Output Total 700 200 Balance 240 -580 -80 Weight 54.431 kg 49.4 kg Intake: Oral 240 120 120 Output: Urine 700 200 Other: Voiding Method Toilet Toilet # Voids 1 1 - Exam General: non toxic, no distress, appears at stated age Derm: warm, dry Head: atraumatic, normocephalic, symmetric Eyes: EOMI, no lid lag, anicteric sclera Mouth: no lip lesion, mucus membranes moist Cardiovascular: S1S2 reg, no murmur, positive posterior tibial pulse bilateral, Lungs: Crackles greater on the right than left, no rhonchi, no rales , no accessory muscle use Abdominal: soft, nontender to palpation, no guarding, no appreciable organomegaly Ext: no gross muscle atrophy, 2+ edema, no contractures Neuro: CN II-XI grossly intact, no focal neuro deficits Psych: Alert, oriented, appropriate affect - Labs CBC & Chem 7: 03/31/19 11:54 04/01/19 02:26 Labs: Abnormal Lab Results - Last 24 Hours (Table) 04/01/19 Range/Units 02:26 Sodium 133 L (137-145) mmol/L Potassium 3.4 L (3.5-5.1) mmol/L Chloride 97 L (98-107) mmol/L BUN 25 H (7-17) mg/dL Glucose 201 H (74-99) mg/dL Assessment and Plan Assessment: Acute exacerbation of diabolic CHF, EF 55% along with severe pulm HTN -Lasix IV push daily as won 5 Kg in 24 hours. -Strict I's and O's, daily weights -Cardiology consultation-sees Dr. Garcia outpatient setting -Continue with atenolol COPD without exacerbation -Stop IV steroids as this appears to be more consistent with CHF exacerbation -Continue with home bronchodilators Chronic A fib - not on anticoagulation at baseline - Tele - Atenolol Acute on chronic hypoxic respiratory failure -Secondary to acute fluid overload -Continue with diuresis -Wean O2 as able Hypertension, controlled -Continue with atenolol -Continue to follow blood pressures History of dyslipidemia -Has refused cholesterol medications in the past -Reached peak cholesterol profile Hyperglycemia - check A1C - repeat with AM labs The patient is admitted with an anticipated greater than 2 midnight stay for evaluation of Acute CHF. Surrogate decision-maker: Daughters CODE STATUS:DNR, family aware DVT prophylaxis: Lovenox Discussed with: Patient, family, nursing, ed physician Anticipated discharge date: 2-[address]: home with home health A total of 65 minutes was spent on the care of this complex patient more than 50% of the time was spent in counseling and care coordination.
--- NOTE | 2019-04-01 14:18 | CONS ---
CONSULTATION CHIEF COMPLAINT: Shortness of breath. This is an 83-year-old lady with history of COPD on home O2, coronary artery disease, status post CABG, hypertension, dyslipidemia, who presented to hospital complaining of shortness of breath. Her BNP was elevated. Chest x-ray showed changes of congestive heart failure. She was treated with bronchodilators, Solu-Medrol and Lasix in the emergency room with some improvement in her symptoms. At the time of my evaluation, she appears comfortable at rest. Her shortness of breath has improved. There is also some PND and orthopnea and she has bilateral leg edema that has gradually gotten worse over the last 5 to 6 days and she had gained weight over the last one month. PAST MEDICAL HISTORY: Significant for coronary artery disease and COPD, hypertension, dyslipidemia, severe pulmonary hypertension, chronic respiratory failure. PAST SURGICAL HISTORY: Significant for bypass surgery, tonsillectomy. Past surgical history is also significant for subdural hematoma. SOCIAL HISTORY: Significant for she drinks 1 to 2 beers a day. There is no smoking. REVIEW OF SYSTEMS: HEENT is unremarkable. CARDIAC: As described above. RESPIRATORY: As described above. GI: Negative. GENITOURINARY: Negative. ALLERGY/IMMUNOLOGY: Negative. SKIN: Negative. MUSCULOSKELETAL: Significant for arthritis. PSYCHOSOCIAL: Negative. ENDOCRINE: Negative. HEMATOLOGICAL: Negative. DERM: Negative. CONSTITUTIONAL: Negative. ONCOLOGICAL: Negative. PHYSICAL EXAMINATION: On exam, she appears comfortable at rest. Heart rate is 74 beats per minute. Blood pressure is 134/67, respiratory rate 18, O2 sat is 99% on 3 L. There is no jugular venous distention. Chest exam reveals diminished air entry at the bases. Heart exam reveals first and second heart sounds, irregular rhythm. A grade 3/6 systolic murmur at the apex. Abdomen is soft. Exam of the extremities reveals bilateral pitting edema. ASSESSMENT: 1. Acute exacerbation of congestive heart failure probably diastolic. 2. Chronic obstructive pulmonary disease exacerbation. 3. Chronic atrial fibrillation. 4. Hypertension. 5. Dyslipidemia. PLAN: I will treat the patient with IV Lasix. Continue the aspirin and beta blockers that she is currently on. She will be treated with antibiotics and nebulizers. She had an echocardiogram that shows normal LV function, severe pulmonary hypertension, mild to moderate aortic regurgitation and moderate tricuspid regurgitation. The patient is not on anticoagulation. I am going to find out what happened, is it the subdural hematoma alone or she had other issues. MMODL / IJN: [id number] /
[2019-04-01 15:07] VITALS: BMI 19.9
[2019-04-02] MEDS: SYMBICORT 80-4.5 MCG INHALER INHALATION SCH (07:50)
[2019-04-02] MEDS: IPRATROPIUM-ALBUTEROL 3 ML NEB INHALATION SCH ×3 (07:50→16:00)
[2019-04-02] MEDS: ASPIRIN 325 MG TAB PO SCH (08:33)
[2019-04-02] MEDS: ENOXAPARIN 40 MG/0.4 ML SYRINGE SQ SCH (08:33)
[2019-04-02] MEDS: CYANOCOBALAMIN 500 MCG TAB PO SCH (08:34)
[2019-04-02] MEDS: CHOLECALCIFEROL 1,000 UNIT TAB PO SCH (08:34)
[2019-04-02] MEDS: MAGNESIUM OXIDE 400 MG TAB PO SCH (08:34)
[2019-04-02] MEDS: LISINOPRIL 5 MG TAB PO SCH (08:34)
[2019-04-02] MEDS: ATENOLOL 50 MG TAB PO SCH (08:34)
[2019-04-02] MEDS: CEPHALEXIN 250 MG CAP PO SCH ×2 (08:34→15:24)
[2019-04-02] MEDS ORDERED: FUROSEMIDE 10 MG/ML 4 ML VIAL IV SCH (09:00)
[2019-04-02 09:49] VITALS: RESP 18
--- NOTE | 2019-04-02 11:14 | P.PN ---
Subjective Progress Note Date: 04/02/19 Principal diagnosis: Acute on chronic hypoxic respiratory failure secondary to an acute exacerbation of diastolic congestive heart failure, acute exacerbation of cor pulmonale, acu te exacerbation of COPD This is an 83-year-old female with history of moderate COPD, FEV1 is in the range of 64%, FEV1/FVC is 57%, patient normally sees Dr. rodriguez for her COPD, and she is O2 dependent, not prednisone dependent. Maintained normally on Advair, Ventolin, Spiriva, and intermittently has been on prednisone for episodes of COPD exacerbation. Patient presented to the ER with 3 days history of increased shortness of breath, fluid retention and swelling in her lower extremities, denies any productive cough, she has occasional dry cough, denies any fever, no chills, no nausea no vomiting, no abdominal pain. Patient felt that she was full of fluid, and she is also known to have history of chronic atrial fibrillation and diastolic congestive heart failure. Her chest x-ray on admi ssion showed trace of bilateral pleural effusions, and mild pulmonary vascular congestion. Patient was admitted with the impression of congestive heart failure, and we were asked to see her on consultation. She was placed on bronchodilators, diuretics. And she is responding already to treatment. She had a relatively normal CBC. Normal electrolytes, And normal renal profile. Troponin was normal, BNP level was elevated at 8490. Looking at her previous echocardiogram from 2014, patient seems to have severe pulmonary hypertension, right-sided pressures are in the range of 79. She had good LV function. The patient is seen today 04/01/2019 in follow-up on the selective care unit. She is currently resting comfortably in bed. Breathing easier today as compared to yesterday. She is maintaining good O2 saturations in the high 90s on 3 L/m per nasal cannula. She's been afebrile. Hemodynamically stable. She is in a negative balance. Her weight is down. Her lower extremity edema has improved. She remains on Lasix 40 mg IV push every 12 hours. Sodium 133. Potassium 3.4. Creatinine 0.84. The patient is seen today 04/02/2019 in follow-up on the selective care unit. She is awake and alert in no acute distress. She is breathing better today compared to yesterday. Nearly back to her baseline. No worsening shortness of breath, cough or congestion. Maintaining good O2 saturations in the mid 90s on 2 L/m per nasal cannula. Afebrile. Hemodynamically stable. Sodium 134. Potassium 4.0. Creatinine 0.94. She remains on IV diuretics along with bronchodilators and Symbicort. Objective - Vital Signs Vital signs: Vital Signs Temp 96.1 F L 04/02/19 08:00 Pulse 75 04/02/19 08:03 Resp 18 04/02/19 08:00 BP 118/59 04/02/19 08:00 Pulse Ox 95 04/02/19 08:00 Intake & Output 04/01/19 04/02/19 04/02/19 18:59 06:59 18:59 Intake Total 556 Output Total 200 0 Balance 356 0 Weight 49.4 kg 49.9 kg Intake: Oral 556 Output: Urine 200 0 Other: Voiding Method Toilet Toilet Toilet # Voids 2 - Exam Gen.: A very pleasant 83-year-old female in no form of distress. On 3 L nasal cannula. HEAD: Normocephalic/atraumatic. EYES: Normal reaction of pupils, equal size. Conjunctiva pink, sclera white. NOSE: Clear with pink turbinates. THROAT: No erythema or exudates. NECK: No masses, positive JVD, no thyroid enlargement, no adenopathy. CHEST: No chest wall deformity. Symmetrical expansion. LUNGS: Equal air entry minimal crackles at the bases. CVS: Regular rate and rhythm, normal S1 and S2. 2/6 systolic murmur thought the precordium. ABDOMEN: Soft, nontender. No hepatosplenomegaly, normal bowel sounds, no guarding or rigidity. EXTREMITIES: No clubbing, 1+ bipedal edema, no cyanosis, 2+ pulses and upper and lower extremities. MUSCULOSKELETAL: Muscle strength and tone normal. SPINE: No scoliosis or deformity SKIN: No rashes CENTRAL NERVOUS SYSTEM: No focal deficits, tone is normal in all 4 extremities. PSYCHIATRIC: Alert and oriented -3. Appropriate affect. Intact judgment and insight. - Labs CBC & Chem 7: 03/31/19 11:54 04/02/19 05:43 Labs: Abnormal Lab Results - Last 24 Hours (Table) 04/02/19 Range/Units 05:43 Sodium 134 L (137-145) mmol/L Chloride 96 L (98-107) mmol/L BUN 27 H (7-17) mg/dL Assessment and Plan Assessment: Impression: #1 Acute on chronic hypoxic respiratory failure secondary to an acute exacerbation of diastolic congestive heart failure, acute exacerbation of chronic cor pulmonale, acute exacerbation of moderate chronic obstructive pulmonary disease. #2 History of hypertension. #3 History of subdural hematoma. #4 Coronary artery disease with previous coronary artery bypass grafting. #5 Former smoker. Plan: The patient was seen and evaluated by Dr. Rapp. She is cleared for discharge from the pulmonary standpoint. Continue her home pulmonary medications. Follow-up in our office in 1-2 weeks' time. I, the cosigning physician, performed a history & physical examination of the patient. Lungs sounds with minimal bibasilar crackles. Maintaining good O2 saturations in the 90s on 2 L/m per nasal cannula. I discussed the assessment and plan of care with my nurse practitioner, Deja Monreal. I attest to the above note as dictated by her.
[2019-04-02] MEDS ORDERED: FLUCONAZOLE 100 MG TAB PO ONE (13:41)
--- NOTE | 2019-04-02 14:33 | P.PN ---
Subjective Progress Note Date: 04/02/19 This is an 83-year-old female patient with past medical history of COPD, chronic hypoxic respiratory failure on home O2, coronary artery disease status post CABG, hypertension, hyperlipidemia. Patient initially presented to Hospital guarding shortness of breath found to have an elevated BNP. Chest x- ray showed changes consistent with heart failure. Patient was started on IV Solu-Medrol, bronchodilators and IV Lasix. 04/02: The patient states that her breathing is soon to be currently at baseline. She is on home O2. Patient continued on IV Lasix area and patient gives history of intracranial bleed approximately 10 years ago after she fell out of bed which was traumatic and nonspontaneous. Possibly, anticoagulation was held or not started due to this bleed. Patient denies any history of GI bleed, blood in her stools, blood in urine. At this time, we recommend patient be started on NOAC. Echocardiogram reveals EF of 60-65%, LA severely dilated greater than 40, mild to moderate aortic regurgitation, mild mitral regurgitation, moderate tricuspid regurgitation, severe pulmonary hypertension Gen: This is a thin cachectic appearing 83-year-old female. Patient is resting in bed and appears to be comfortable. No acute respiratory distress noted. HEENT: Head is atraumatic, normocephalic. Pupils equal, round. Sclerae is anicteric. NECK: Supple. No JVD. No lymphadenopathy. No thyromegaly. LUNGS: Clear to auscultation. No wheezes or rhonchi. No intercostal retra ctions. HEART: Regular rate and rhythm. 3/6 systolic murmur. ABDOMEN: Soft. Bowel sounds are present. No masses. No tenderness. EXTREMITIES: No pedal edema. No calf tenderness. NEUROLOGICAL: Patient is awake, alert and oriented x3. Cranial nerves 2 through 12 are grossly intact. Assessment: Acute diastolic heart failure Acute COPD exacerbation Chronic A. fib not currently on anticoagulation Acute on chronic hypoxic respiratory failure Hypertension Hyperlipidemia Plan: Continue Lasix 40 mg IV daily. Recommend starting patient on NOAC for chronic A. fib. Continue lisinopril 5 mg daily, atenolol 50 mg daily. Further recommendations to follow based upon clinical course. Nurse practitioner note has been reviewed, I agree with documented findings and plan of care. Patient was seen and examined. Objective - Vital Signs Vital signs: Vital Signs Temp 97.2 F L 04/02/19 12:00 Pulse 66 04/02/19 12:00 Resp 18 04/02/19 12:00 BP 131/67 04/02/19 12:00 Pulse Ox 98 04/02/19 12:00 Intake & Output 04/01/19 04/02/19 04/02/19 18:59 06:59 18:59 Intake Total 556 402 Output Total 200 0 Balance 356 402 Weight 49.4 kg 49.9 kg Intake: Oral 556 402 Output: Urine 200 0 Other: Voiding Method Toilet Toilet Toilet # Voids 2 - Labs CBC & Chem 7: 03/31/19 11:54 04/02/19 05:43 Labs: Abnormal Lab Results - Last 24 Hours (Table) 04/02/19 Range/Units 05:43 Sodium 134 L (137-145) mmol/L Chloride 96 L (98-107) mmol/L BUN 27 H (7-17) mg/dL
--- NOTE | 2019-04-02 15:30 | P.DS ---
Providers Date of admission: 03/31/19 14:26 Expected date of discharge: 04/02/19 Attending physician: Yumiko Pierre DO Consults: 03/31/19 14:26 Consult Physician Routine Consulting Provider: Michael Mercado Consult Reason/Comments: COPD, CHF Do you want consulting provider notified?: Yes Consult Physician Routine Consulting Provider: Peterson Segovia Consult Reason/Comments: CHF, COPD, chronic A. fib Do you want consulting provider notified?: Yes Primary care physician: Danilo Marrero Hospital Course: Discharge Diagnosis: Acute exacerbation of diastolic congestive heart failure with ejection fraction 55% associated with severe pulmonary hypertension COPD without exacerbation Acute on chronic hypoxic respiratory failure Chronic A fib Hypertension Dyslipidemia Hyperglycemia, resolved Hospital Course: Patient is a 83-year-old female with a past medical history of severe COPD on chronic oxygen at 2 L nasal cannula, irregular heartbeat, coronary artery disease with history of one-vessel bypass, hypertension, and dyslipidemia who presented to the emergency department with complaints of shortness of breath. In the ER she underwent an extensive evaluation. On arrival she was found to be hypoxic with an O2 sat of 79% on her chronic 2 L. Laboratory analysis was reviewed and remarkable for a low sodium of 134, slightly elevated bilirubin at 1.4, and BNP was significantly elevated at 8490. Her troponin was negative. Chest x-ray was consistent with signs of fluid overload. She was given Solu-Medrol, bronchodilators, and Lasix in the emergency department. She was admitted for further monitoring. She was continued on IV Lasix, she was already on a beta sravani, no ANNE inhibitor was started as echocardiogram was not yet available. Echo shows diastolic dysfunction with severe pulmonary hypertension likely resultant cor pulmonale. Cardiology was consulted. Pulmonary was consulted. Cardiology agreed with continued diuresis. She improved significantly. She is determined stable for discharge home. Her oral Lasix was increased to 40 twice a day, potassium was added, and lisinopril was added by cardiology. She will have home health with telemedicine on discharge area and she'll follow-up with Dr. Garcia in 1-[address] Marrero next week. Patient seen and examined at bedside. Breathing is back to baseline, cough much improved, lower extremity edema improved, no nausea or vomiting, feeling well and wants to go home. Vital signs reviewed and stable. General: non toxic, no distress, appears at stated age Derm: warm, dry Head: atraumatic, normocephalic, symmetric Eyes: EOMI, no lid lag, anicteric sclera Mouth: no lip lesion, mucus membranes moist Cardiovascular: S1S2 reg, no murmur, positive posterior tibial pulse bilateral, Lungs: Decrease breath sounds bilateral, no rhonchi, no rales , no accessory muscle use Abdominal: soft, nontender to palpation, no guarding, no appreciable organomegaly Ext: no gross muscle atrophy, 1+ edema, no contractures Neuro: CN II-XI grossly intact, no focal neuro deficits Psych: Alert, oriented, appropriate affect A total of 35 minutes of time were spent preparing this complex discharge summary . Pertinent Studies: Echo-ejection fraction 55%, diastolic dysfunction, severe pulmonary hypertension Chest x-ray-fluid overload Patient Condition at Discharge: Stable Plan - Discharge Summary New Discharge Prescriptions: New Aspirin 325 mg PO DAILY tab Fluconazole [Diflucan] 100 mg PO DAILY #14 tab Potassium Chloride ER [K-Dur 20] 20 meq PO DAILY #15 tab Furosemide [Lasix] 40 mg PO BID #30 tablet Lisinopril [Zestril] 5 mg PO DAILY #30 tab Continue Atenolol [Tenormin] 50 mg PO DAILY Cyanocobalamin [Vitamin B-12] 500 mcg PO DAILY@1200 Cholecalciferol [Vitamin D3 (25 Mcg = 1000 Iu)] 1,000 unit PO DAILY@1200 Magnesium 200 mg PO DAILY Tiotropium [place] [Spiriva Respimat] 4 gm INHALATION RT-DAILY Fluticasone/Salmeterol [Advair 250-50 Diskus] 1 puff INHALATION RT-BID Cephalexin [Keflex] 250 mg PO TID Discontinued Aspirin 81 mg PO DAILY Furosemide [Lasix] 20 mg PO BID Discharge Medication List Atenolol [Tenormin] 50 mg PO DAILY 12/30/14 [History] Cholecalciferol [Vitamin D3 (25 Mcg = 1000 Iu)] 1,000 unit PO DAILY@1200 12/31/14 [History] Cyanocobalamin [Vitamin B-12] 500 mcg PO DAILY@1200 12/31/14 [History] Magnesium 200 mg PO DAILY 12/31/14 [History] Fluticasone/Salmeterol [Advair 250-50 Diskus] 1 puff INHALATION RT-BID 04/09/16 [History] Tiotropium [place] [Spiriva Respimat] 4 gm INHALATION RT-DAILY 04/09/16 [History] Cephalexin [Keflex] 250 mg PO TID 03/31/19 [History] Aspirin 325 mg PO DAILY tab 04/02/19 [Rx] Fluconazole [Diflucan] 100 mg PO DAILY #14 tab 04/02/19 [Rx] Furosemide [Lasix] 40 mg PO BID #30 tablet 04/02/19 [Rx] Lisinopril [Zestril] 5 mg PO DAILY #30 tab 04/02/19 [Rx] Potassium Chloride ER [K-Dur 20] 20 meq PO DAILY #15 tab 04/02/19 [Rx] Follow up Appointment(s)/Referral(s): [facility], [NON-STAFF] - 1-2 Days (will call to set up schedule, if you have questions please contact agency ) Danilo Marrero MD [Primary Care Provider] - 1-2 days Ambulatory/Diagnostic Orders: Basic Metabolic Panel [LAB.AMB] Location: None Selected Magnesium [LAB.AMB] Time Frame: 5 Days, Location: None Selected Patient Instructions/Handouts: Heart Failure (DC) Activity/Diet/Wound Care/Special Instructions: Diet: heart healthy, 2L fluid restriction Activity: as tolerated
[2019-04-02 16:35] VITALS: BP 130/63; PULSE 69; TEMP 97.1
[2019-04-03] MEDS ORDERED: FLUCONAZOLE 100 MG TAB PO SCH (09:00)
== END 2019-04-02 18:20 | disposition home health service (06) | DRG 291 ==
LOC: EC 11:35 → 3SCARD 14:26
PROVIDERS: ADMIT Internal Medicine; ATTEND Internal Medicine
DX: I11.0 Hypertensive heart disease with heart failure (principal); J96.21 Acute and chronic respiratory failure with hypoxia; J44.1 Chronic obstructive pulmonary disease with (acute) exacerbation; N39.0 Urinary tract infection, site not specified; R64 Cachexia; I50.33 Acute on chronic diastolic (congestive) heart failure; I48.2 Chronic atrial fibrillation; I27.81 Cor pulmonale (chronic); I08.1 Rheumatic disorders of both mitral and tricuspid valves; K59.00 Constipation, unspecified; R73.9 Hyperglycemia, unspecified; I25.10 Atherosclerotic heart disease of native coronary artery without angina pectoris; E78.5 Hyperlipidemia, unspecified; I27.20 Pulmonary hypertension, unspecified; Z66 Do not resuscitate; Z99.81 Dependence on supplemental oxygen; Z95.1 Presence of aortocoronary bypass graft; Z79.82 Long term (current) use of aspirin; Z79.899 Other long term (current) drug therapy; Z79.51 Long term (current) use of inhaled steroids; Z87.891 Personal history of nicotine dependence; Z82.49 Family history of ischemic heart disease and other diseases of the circulatory system; Z86.73 Personal history of transient ischemic attack (TIA), and cerebral infarction without residual deficits; Z90.89 Acquired absence of other organs; Z68.20 Body mass index [BMI] 20.0-20.9, adult
CPT/HCPCS: 36415; 71046; 80048; 80053; 80061; 83735; 83880; 84484; 85025; 85610; 85730; 93005; 93306; 94640; 94760; 96374; 96375; 99291

== ENCOUNTER 2019-08-10 15:14 | Inpatient (IN) | payer MEDICARE ==
[2019-08-10] MEDS ORDERED: SODIUM CHLORIDE 0.9% 1,000 ML IV ONE ×2 (15:42→19:28)
[2019-08-10] MEDS ORDERED: ONDANSETRON 4 MG/2 ML VIAL IVP STA (15:43)
--- NOTE | 2019-08-10 15:50 | ED ---
General Adult HPI - General Chief complaint: Dizziness Stated complaint: vomitting, diarhea Time Seen by Provider: 08/10/19 15:20 Source: patient, family, RN notes reviewed, old records reviewed Mode of arrival: ambulatory Limitations: no limitations - History of Present Illness Initial comments: This is an 84-year-old female presents emergency Department with a 1 week history of being tired and having diarrhea. Patient states on occasion she also has had the dry heaves. Patient states that anytime she gets up today she feels like she is going to pass out. Patient states she is not concerning is much fluid or food during this period of time per patient does complain of a little bit of shortness of breath but she denies any chest pain and I did ask her twice about this even though it was mentioned in the triage note. Patient denies any fever chills or cough. Patient denies any abdominal pain she does states she has occasional abdominal cramping before she has diarrhea but no pain. Patient denies any dysuria or hematuria. Patient states she recently was treated for urinary tract infection and she stopped antibiotics a couple days ago after being on them for about 2 weeks. Patient denies any headache patient denies any numbness weakness. - Related Data Home Medications Medication Instructions Recorded Confirmed Atenolol [Tenormin] 50 mg PO DAILY 12/30/14 03/31/19 Cholecalciferol [Vitamin D3 (25 1,000 unit PO DAILY@1200 12/31/14 03/31/19 Mcg = 1000 Iu)] Cyanocobalamin [Vitamin B-12] 500 mcg PO DAILY@1200 12/31/14 03/31/19 Magnesium 200 mg PO DAILY 12/31/14 03/31/19 Fluticasone/Salmeterol [Advair 1 puff INHALATION RT-BID 04/09/16 03/31/19 250-50 Diskus] Tiotropium [place] [Spiriva 4 gm INHALATION RT-DAILY 04/09/16 03/31/19 Respimat] Cephalexin [Keflex] 250 mg PO TID 03/31/19 03/31/19 Previous Rx's Medication Instructions Recorded Aspirin 325 mg PO DAILY tab 04/02/19 Fluconazole [Diflucan] 100 mg PO DAILY #14 tab 04/02/19 Furosemide [Lasix] 40 mg PO BID #30 tablet 04/02/19 Lisinopril [Zestril] 5 mg PO DAILY #30 tab 04/02/19 Potassium Chloride ER [K-Dur 20] 20 meq PO DAILY #15 tab 04/02/19 Allergies Allergy/AdvReac Type Severity Reaction Status Date / Time Sulfa (Sulfonamide Allergy Rash/Hives Verified 08/10/19 19:23 Antibiotics) sulfamethoxazole Allergy Rash/Hives Verified 08/10/19 19:23 [From Bactrim] trimethoprim [From Bactrim] Allergy Rash/Hives Verified 08/10/19 19:23 Review of Systems ROS Statement: Those systems with pertinent positive or pertinent negative responses have been documented in the HPI. ROS Other: All systems not noted in ROS Statement are negative. Past Medical History Past Medical History: Coronary Artery Disease (CAD), COPD Additional Past Medical History / Comment(s): Hypertension, dyslipidemia, irregular heartbeat, chronic hypoxic respiratory failure on 2 L nasal cannula, severe pulmonary hypertension, diverticulitis History of Any Multi-Drug Resistant Organisms: None Reported Past Surgical History: Coronary Bypass/CABG, Tonsillectomy Additional Past Surgical History / Comment(s): subdural hematoma, CABG apx. 30 years ago, bladder sling apx 2004 Past Anesthesia/Blood Transfusion Reactions: No Reported Reaction Past Psychological History: No Psychological Hx Reported Smoking Status: Former smoker Past Alcohol Use History: Occasional Past Drug Use History: None Reported - Past Family History Father Family Medical History: Congestive Heart Failure (CHF), Hypertension Additional Family Medical History / Comment(s): aneurysm Mother Family Medical History: Hypertension General Exam - General Exam Comments Initial Comments: GENERAL: Patient is well-developed and well-nourished. Patient is nontoxic and well- hydrated and is in mild distress. ENT: Neck is soft and supple. No significant lymphadenopathy is noted. Oropharynx is clear. Moist mucous membranes. Neck has full range of motion without eliciting any pain. EYES: The sclera were anicteric and conjunctiva were pink and moist. Extraocular movements were intact and pupils were equal round and reactive to light. Eyelids were unremarkable. PULMONARY: Unlabored respirations. Good breath sounds bilaterally. No audible rales r honchi or wheezing was noted. CARDIOVASCULAR: There is a regular rate and rhythm without any murmurs gallops or rubs. ABDOMEN: Soft and nontender with normal bowel sounds. No palpable organomegaly was noted. There is no palpable pulsatile mass. SKIN: Skin is clear with no lesions or rashes and otherwise unremarkable. NEUROLOGIC: Patient is alert and oriented x3. Cranial nerves II through XII are grossly intact. Motor and sensory are also intact. Normal speech, volume and content. Symmetrical smile. MUSCULOSKELETAL: Normal extremities with adequate strength and full range of motion. LYMPHATICS: No significant lymphadenopathy is noted PSYCHIATRIC: Normal psychiatric evaluation. Limitations: no limitations Course Vital Signs 08/10/19 08/10/19 08/10/19 15:18 15:22 15:32 Temperature 97.3 F L 97.3 F L Pulse Rate 84 82 83 Respiratory 18 18 16 Rate Blood Pressure 96/63 107/60 O2 Sat by Pulse 97 97 Oximetry 08/10/19 08/10/19 08/10/19 15:40 15:50 16:00 Temperature Pulse Rate 81 71 74 Respiratory 16 18 16 Rate Blood Pressure 102/66 102/66 O2 Sat by Pulse 100 100 Oximetry 08/10/19 08/10/19 08/10/19 16:10 16:20 16:22 Temperature 97.3 F L Pulse Rate 75 70 80 Respiratory 20 16 18 Rate Blood Pressure 95/62 95/62 108/62 O2 Sat by Pulse 100 94 L 97 Oximetry 08/10/19 08/10/19 08/10/19 16:30 16:40 16:50 Temperature Pulse Rate 73 Respiratory 25 H Rate Blood Pressure 95/62 107/60 107/60 O2 Sat by Pulse 100 53 L Oximetry 08/10/19 08/10/19 08/10/19 17:00 17:10 17:20 Temperature 97.3 F L Pulse Rate 67 Respiratory 21 Rate Blood Pressure 107/60 108/69 108/69 O2 Sat by Pulse 99 Oximetry 08/10/19 08/10/19 08/10/19 17:30 17:40 17:50 Temperature Pulse Rate 63 66 Respiratory 30 H 19 Rate Blood Pressure 108/69 114/75 114/75 O2 Sat by Pulse Oximetry 08/10/19 08/10/19 08/10/19 18:00 18:10 18:20 Temperature Pulse Rate 66 66 59 L Respiratory 22 16 19 Rate Blood Pressure 114/75 125/67 125/67 O2 Sat by Pulse 97 Oximetry 08/10/19 08/10/19 18:30 18:40 Temperature Pulse Rate 65 61 Respiratory 16 17 Rate Blood Pressure 125/67 136/90 O2 Sat by Pulse Oximetry Medical Decision Making - Medical Decision Making EKG shows atrial fibrillation 81 bpm QRS is 92 QT interval 374 QTC is 434 patient's EKG shows some ST segment depression in V3 V4 V5 and V6. X-ray shows no acute abnormality. Patient was given fluid in the emergency department. Patient had no episodes of diarrhea so we were unable to collect a sample for C. diff. We try to get the patient up in bed she was unsteady and could not walk. I spoke with some physicians they agreed to admit the patient admitted the patient wrote admitting orders. According to family patient was recently placed on Lasix in July but taken off of Lasix about 2 days ago. They are unsure why she was taken off. - Lab Data Result diagrams: 08/10/19 15:41 08/10/19 15:41 Lab Results 08/10/19 08/10/19 08/10/19 Range/Units 15:41 15:41 15:41 WBC 6.9 (3.8-10.6) k/uL RBC 4.64 (3.80-5.40) m/uL Hgb 14.1 (11.4-16.0) gm/dL Hct 42.6 (34.0-46.0) % MCV 91.8 (80.0-100.0) fL MCH 30.3 (25.0-35.0) pg MCHC 33.0 (31.0-37.0) g/dL RDW 13.7 (11.5-15.5) % Plt Count 246 (150-450) k/uL Neutrophils % 70 % Lymphocytes % 19 % Monocytes % 8 % Eosinophils % 1 % Basophils % 0 % Neutrophils # 4.8 (1.3-7.7) k/uL Lymphocytes # 1.3 (1.0-4.8) k/uL Monocytes # 0.5 (0-1.0) k/uL Eosinophils # 0.1 (0-0.7) k/uL Basophils # 0.0 (0-0.2) k/uL PT (9.0-12.0) sec INR (<1.2) APTT (22.0-30.0) sec Sodium 127 L (137-145) mmol/L Potassium 4.9 (3.5-5.1) mmol/L Chloride 91 L (98-107) mmol/L Carbon Dioxide 22 (22-30) mmol/L Anion Gap 14 mmol/L BUN 62 H (7-17) mg/dL Creatinine 2.80 H (0.52-1.04) mg/dL Est GFR (CKD-EPI)AfAm 17 (>60 ml/min/1.73 sqM) Est GFR (CKD-EPI)NonAf 15 (>60 ml/min/1.73 sqM) Glucose 114 H (74-99) mg/dL Plasma Lactic Acid [place] 1.6 (0.7-2.0) mmol/L Calcium 10.0 (8.4-10.2) mg/dL Magnesium 2.1 (1.6-2.3) mg/dL Total Bilirubin 0.9 (0.2-1.3) mg/dL AST 27 (14-36) U/L ALT 14 (9-52) U/L Alkaline Phosphatase 81 (38-126) U/L Troponin I (0.000-0.034) ng/mL Total Protein 7.3 (6.3-8.2) g/dL Albumin 4.5 (3.5-5.0) g/dL Urine Color Urine Appearance (Clear) Urine pH (5.0-8.0) Ur Specific [place] (1.001-1.035) Urine Protein (Negative) Urine Glucose (UA) (Negative) Urine Ketones (Negative) Urine Blood (Negative) Urine Nitrite (Negative) Urine Bilirubin (Negative) Urine Urobilinogen (<2.0) mg/dL Ur Leukocyte Esterase (Negative) 08/10/19 08/10/19 08/10/19 Range/Units 15:41 15:41 17:35 WBC (3.8-10.6) k/uL RBC (3.80-5.40) m/uL Hgb (11.4-16.0) gm/dL Hct (34.0-46.0) % MCV (80.0-100.0) fL MCH (25.0-35.0) pg MCHC (31.0-37.0) g/dL RDW (11.5-15.5) % Plt Count (150-450) k/uL Neutrophils % % Lymphocytes % % Monocytes % % Eosinophils % % Basophils % % Neutrophils # (1.3-7.7) k/uL Lymphocytes # (1.0-4.8) k/uL Monocytes # (0-1.0) k/uL Eosinophils # (0-0.7) k/uL Basophils # (0-0.2) k/uL PT 11.6 (9.0-12.0) sec INR 1.1 (<1.2) APTT 30.1 H (22.0-30.0) sec Sodium (137-145) mmol/L Potassium (3.5-5.1) mmol/L Chloride (98-107) mmol/L Carbon Dioxide (22-30) mmol/L Anion Gap mmol/L BUN (7-17) mg/dL Creatinine (0.52-1.04) mg/dL Est GFR (CKD-EPI)AfAm (>60 ml/min/1.73 sqM) Est GFR (CKD-EPI)NonAf (>60 ml/min/1.73 sqM) Glucose (74-99) mg/dL Plasma Lactic Acid [place] (0.7-2.0) mmol/L Calcium (8.4-10.2) mg/dL Magnesium (1.6-2.3) mg/dL Total Bilirubin (0.2-1.3) mg/dL AST (14-36) U/L ALT (9-52) U/L Alkaline Phosphatase (38-126) U/L Troponin I 0.014 (0.000-0.034) ng/mL Total Protein (6.3-8.2) g/dL Albumin (3.5-5.0) g/dL Urine Color Yellow Urine Appearance Clear (Clear) Urine pH 5.0 (5.0-8.0) Ur Specific [place] 1.008 (1.001-1.035) Urine Protein Negative (Negative) Urine Glucose (UA) Negative (Negative) Urine Ketones Negative (Negative) Urine Blood Negative (Negative) Urine Nitrite Negative (Negative) Urine Bilirubin Negative (Negative) Urine Urobilinogen <2.0 (<2.0) mg/dL Ur Leukocyte Esterase Negative (Negative) Disposition Clinical Impression: Hyponatremia, Acute diarrhea, Renal insufficiency, Generalized weakness, Near syncope Disposition: ADMITTED IP TO THIS HOSP Referrals: Danilo Marrero MD [Primary Care Provider] - 1-2 days Time of Disposition: 19:28
[2019-08-10 16:00] LABS: Basophils % (A) 0 %; Eosinophils # (A) 0.1 k/uL (0-0.7); Eosinophils % (A) 1 %; HCT 42.6 % (34.0-46.0); HGB 14.1 gm/dL (11.4-16.0); Lymphocytes # (A) 1.3 k/uL (1.0-4.8); Lymphocytes % (A) 19 %; MCH 30.3 pg (25.0-35.0); MCV 91.8 fL (80.0-100.0); Mean Platelet Volume 8.5; Monocytes # (A) 0.5 k/uL (0-1.0); Monocytes % (A) 8 %; Neutrophils # (A) 4.8 k/uL (1.3-7.7); Neutrophils % (A) 70 %; Platelet Count 246 k/uL (150-450); RBC 4.64 m/uL (3.80-5.40); RDW 13.7 % (11.5-15.5); WBC 6.9 k/uL (3.8-10.6)
[2019-08-10 16:12] LABS: Albumin 4.5 g/dL (3.5-5.0); Magnesium 2.1 mg/dL (1.6-2.3); Potassium 4.9 mmol/L (3.5-5.1); Total Bilirubin 0.9 mg/dL (0.2-1.3); Total Protein 7.3 g/dL (6.3-8.2)
[2019-08-10 16:16] LABS: INR 1.1 (<1.2); Partial Thromboplastin Time 30.1 sec (22.0-30.0); Prothrombin Time 11.6 sec (9.0-12.0)
--- NOTE | 2019-08-10 16:56 | XR ---
EXAMINATION TYPE: XR chest 2V DATE OF EXAM: 08/10/2019 COMPARISON: 03/31/2019 HISTORY: Leg edema TECHNIQUE: Frontal and lateral views of the chest are obtained. FINDINGS: Heart is mildly enlarged. There is no heart failure. There are sternal wires. Costophrenic angles are clear. There is some coarsening of the lung markings. IMPRESSION: Mild cardiomegaly. There is clearing of the pleural fluid compared to old exam. No heart failure seen. Mild pulmonary fibrosis.
[2019-08-10 17:53] LABS: Appearance,Urine Clear (Clear); Bilirubin,Urine Negative (Negative); Blood,Urine Negative (Negative); Color,Urine Yellow; Glucose,Urine (UA) Negative (Negative); Ketones,Urine Negative (Negative); Leukocyte Esterase,Urine Negative (Negative); Nitrite,Urine Negative (Negative); Protein,Urine Negative (Negative); Specific Gravity,Urine 1.008 (1.001-1.035); Urobilinogen,Urine <2.0 mg/dL (<2.0)
--- NOTE | 2019-08-11 | P.HPIM ---
History of Present Illness H&P Date: 08/10/19 The patient is an 84-year-old female with a PMH of COPD (on home nasal cannula oxygen 2 L continuously), Afib (on Eliquis), diastolic CHF (on lasix) w/ severe pulmonary HTN, coronary artery disease status post CABG, hypertension, and hyperlipidemia who presented to the ED due to persistent diarrhea and feeling lightheaded. The patient notes that she was diagnosed with UTI roughly 2 weeks ago at which time she was started on antibiotic by her PMD. She states that she finished the antibiotic a few days ago, though began having nonbloody diarrhea a few days after initiating her course which has since persisted. She reports having 3-5 nonbloody watery bowel movements daily. She notes that she also had some nausea and dry heaving along with some mild intermittent abdominal pain located in the epigastric region during the dry heaves. She states that due to her above symptoms, she has been unable to the ED or drink much over the past week and feels that she is dehydrated. Earlier today, she noticed that simply trying to stand up was causing her to become very lightheaded. The patient's granddaughter who is an RN, strongly advised the patient to seek medical attention, at which time the patient came to the ED. At time of the interview, reports that she feels significantly better, with no active complaints at this time. She notes that her lightheadedness has improved significantly. She denied further abdominal pain, nausea, or dry heaves. She also denied chest pain, shortness of breath, palpitations, fever, chills, cough, dizziness, or headache. The patient underwent an extensive evaluation in the emergency room with a chest x-ray which revealed mild cardiomegaly and mild fibrosis along with an EKG which revealed A. fib at 81 bpm. Laboratory evaluation revealed hypon atremia with sodium of 127, potassium 4.9, BUN 62 (up from a baseline of 27), creatinine 2.80 (baseline 0.9), WBC count 6.9, hemoglobin 14.1, UA unremarkable, and lactate 1.6. Review of Systems Pertinent positives and negatives as discussed in HPI, a complete review of s ystems was performed and all other systems are negative. Past Medical History Past Medical History: Atrial Fibrillation, Coronary Artery Disease (CAD), Heart Failure, COPD, Deep Vein Thrombosis (DVT) Additional Past Medical History / Comment(s): Hypertension, dyslipidemia, irregular heartbeat, chronic hypoxic respiratory failure on 2 L nasal cannula, severe pulmonary hypertension, diverticulitis, uti couple weeks ago, raynauds History of Any Multi-Drug Resistant Organisms: None Reported Past Surgical History: Cholecystectomy, Coronary Bypass/CABG, Tonsillectomy Additional Past Surgical History / Comment(s): subdural hematoma 2003, CABG apx. 30 years ago, bladder sling apx 2004 Past Anesthesia/Blood Transfusion Reactions: No Reported Reaction Past Psychological History: No Psychological Hx Reported Smoking Status: Former smoker Past Alcohol Use History: Occasional Past Drug Use History: None Reported - Past Family History Father Family Medical History: Congestive Heart Failure (CHF), Hypertension Additional Family Medical History / Comment(s): aneurysm Mother Family Medical History: Hypertension Medications and Allergies Home Medications Medication Instructions Recorded Confirmed Type Atenolol [Tenormin] 50 mg PO DAILY 12/30/14 08/10/19 History Fluticasone/Salmeterol [Advair 1 puff INHALATION RT-BID 04/09/16 08/10/19 History 250-50 Diskus] Lisinopril [Zestril] 5 mg PO DAILY #30 tab 04/02/19 08/10/19 Rx Albuterol Nebulized [Ventolin 2.5 mg INHALATION RT-BID PRN 08/10/19 08/10/19 History Nebulized] Apixaban [Eliquis] 2.5 mg PO BID 08/10/19 08/10/19 History Potassium Chloride ER [K-Dur 10] 10 meq PO BID 08/10/19 08/10/19 History Tiotropium 18 Mcg/Puff [Spiriva] 1 puff INHALATION RT-DAILY 08/10/19 08/10/19 History Allergies Allergy/AdvReac Type Severity Reaction Status Date / Time Sulfa (Sulfonamide Allergy Rash/Hives Verified 08/10/19 19:23 Antibiotics) sulfamethoxazole Allergy Rash/Hives Verified 08/10/19 19:23 [From Bactrim] trimethoprim [From Bactrim] Allergy Rash/Hives Verified 08/10/19 19:23 Physical Exam Vitals: Vital Signs Temp Pulse Pulse Resp BP BP Pulse Ox 08/10/19 21:25 98.4 F 74 20 128/74 96 08/10/19 18:40 61 17 136/90 08/10/19 18:30 65 16 125/67 08/10/19 18:20 59 L 19 125/67 08/10/19 18:10 66 16 125/67 08/10/19 18:00 66 22 114/75 97 08/10/19 17:50 66 19 114/75 08/10/19 17:40 63 30 H 114/75 08/10/19 17:30 108/69 08/10/19 17:20 108/69 08/10/19 17:10 108/69 08/10/19 17:00 97.3 F L 67 21 107/60 99 08/10/19 16:50 107/60 53 L 08/10/19 16:40 107/60 08/10/19 16:30 73 25 H 95/62 100 08/10/19 16:22 97.3 F L 80 18 108/62 97 08/10/19 16:20 70 16 95/62 94 L 08/10/19 16:10 75 20 95/62 100 08/10/19 16:00 74 16 102/66 100 08/10/19 15:50 71 18 102/66 100 08/10/19 15:42 98.4 F 65 74 21 142/75 128/74 92 L 08/10/19 15:40 81 16 08/10/19 15:32 83 16 08/10/19 15:22 97.3 F L 82 18 107/60 97 08/10/19 15:18 97.3 F L 84 18 96/63 97 Intake and Output 08/10/19 08/10/19 08/11/19 14:59 22:59 06:59 Intake Total 290 Balance 290 Intake: Oral 290 Other: # Voids 1 Weight 40.597 kg General: non toxic, no distress, appears at stated age, underweight Derm: no unusual rashes/lesions no unusual ecchymoses, warm, dry Head: atraumatic, normocephalic, symmetric Eyes: EOMI, no lid lag, anicteric sclera, pupils equal round reactive to light ENT: Nose and ears atraumatic, no thrush, no pharyngeal erythema Neck: No thyromegaly, no cervical lymphadenopathy, trachea midline, supple Mouth: no lip lesion, mucus membranes moist Cardiovascular: S1S2 reg, no murmur, positive posterior tibial pulse bilateral, no edema, capillary refill less than 2 seconds Lungs: CTA bilateral, no rhonchi, no rales , no accessory muscle use Abdominal: soft, nontender to palpation, no guarding, no appreciable organomeg anton, normal bowel sounds Ext: no gross muscle atrophy, muscle strength 5 out of 5 in all 4 extremities grossly, no contractures, Neuro: CN II-XI grossly intact, light touch intact all 4 extremities, finger to nose within normal limits, Psych: Alert, oriented, appropriate affect Results CBC & Chem 7: 08/10/19 15:41 08/10/19 15:41 Labs: Abnormal Lab Results - Last 24 Hours (Table) 08/10/19 08/10/19 Range/Units 15:41 15:41 APTT 30.1 H (22.0-30.0) sec Sodium 127 L (137-145) mmol/L Chloride 91 L (98-107) mmol/L BUN 62 H (7-17) mg/dL Creatinine 2.80 H (0.52-1.04) mg/dL Glucose 114 H (74-99) mg/dL Thrombosis Risk Factor Assmnt - Choose All That Apply Any of the Below Risk Factors Present?: Yes Each Factor Represents 1 point: Abnormal pulmonary function (COPD) Other Risk Factors: Yes Each Risk Factor Represents 3 Points: Age 75 years or older, History of DVT/PE Other congenital or acquired thrombophilia - If yes, enter type in comment: No Thrombosis Risk Factor Assessment Total Risk Factor Score: 7 Thrombosis Risk Factor Assessment Level: High Risk Assessment and Plan Plan: Intractable diarrhea with hyponatremia and dehydration -C/w IVFs 100 cc/hr -Monitor BMP -Possibly secondary to Abxs -Check C. diff. If negative, will treat with Azithromycin 1 g empirically. ANDRE, likely due to dehydration -Continue with IV fluids -Monitor BMP -Avoid nephrotoxic agents Hyponatremia -Due to diarrhea and dehydration -Monitor BMP for now Chronic conditions: COPD, CAD, hypertension, hyperlipidemia -Continue with home meds DVT prophylaxis -Eliquis The patient is admitted with an anticipated less than 2 midnight stay for evaluation of diarrhea with dehydration CODE STATUS: No Code Discussed with: Patient Anticipated discharge date: 1-[address]: Home A total of 40 minutes was spent on the care of this complex patient more than 50% of the time was spent in counseling and care coordination.
[2019-08-11] MEDS: IPRATROPIUM 0.5 MG/2.5 ML NEBU INHALATION SCH ×4 (07:50→19:50)
[2019-08-11] MEDS: SYMBICORT 80-4.5 MCG INHALER INHALATION SCH ×2 (07:51→19:50)
[2019-08-11] MEDS ORDERED: HEPARIN SODIUM,PORCINE 5,000 UNIT/ML 1 ML VIAL SQ SCH (08:00)
[2019-08-11] MEDS: ATENOLOL 50 MG TAB PO SCH (08:38)
[2019-08-11] MEDS: APIXABAN 2.5 MG TABLET PO SCH ×2 (08:38→19:29)
[2019-08-11] MEDS ORDERED: LISINOPRIL 5 MG TAB PO SCH (09:00)
[2019-08-11 10:11] VITALS: BMI 18.4
[2019-08-11 10:17] LABS: Albumin 3.4 g/dL (3.5-5.0); Calcium 9.2 mg/dL (8.4-10.2); Potassium 4.4 mmol/L (3.5-5.1); Total Bilirubin 0.6 mg/dL (0.2-1.3); Total Protein 5.8 g/dL (6.3-8.2)
--- NOTE | 2019-08-11 10:22 | CDI ---
Documentation Clarification Form Date: 08/11/2019 10:11:00 AM From: Natali LeeValladaresJOY kenney, CCDS Admit Date: 08/10/2019 7:28:00 PM Patient Name: Karina Britton Visit Number: [id number] Discharge Date: ATTENTION: The Clinical Documentation Specialists (CDI) and [facility] Coding Staff appreciate your assistance in clarifying documentation. Please respond to the clarification below the line at the bottom and electronically sign. The CDI & [facility] Coding staff will review the response and follow-up if needed. Please note: Queries are made part of the Legal Health Record. If you have any questions, please contact the author of this message via ITS. Dr. Mala Sawyer or Dr. Emily Che: Atrial Fibrillation is documented in the History & Physical and on EKG. History/Risk Factors: Hypertension, Hyperlipidemia, COPD & Chronic respiratory failure on home O2 @ 2Lnc, former smoker, CAD status post CABG. Clinical Indicators: Presented with lightheadedness, diarrhea > 1 week, recent dx of UTI & treated with antibiotics. Diagnosed with ANDRE, Dehydration & Hyponatremia. HR: 84 - 67 - 59* - 60 EKG/telemetry: EKG shows atrial fibrillation 81 bpm QRS is 92 QT interval 374 QTC is 434 patient's EKG shows some ST segment depression in V3 V4 V5 and V6. Treatment: IV fluid bolus, IV Zofran, IV fluid rate 100, INH Symbicort, po Eliquis (home med) Consults: Dietitian In your professional opinion, can you please clarify the type of Atrial Fibrillation, if known? Chronic (with RVR) Paroxysmal Permanent Persistent (chronic) (NOS) (Other) Other, please specify Unable to determine (Last Revision: November 2017) likely persistent MTDD
[2019-08-11 11:17] LABS: HCT 34.8 % (34.0-46.0); HGB 11.4 gm/dL (11.4-16.0); MCH 29.9 pg (25.0-35.0); MCHC 32.7 g/dL (31.0-37.0); MCV 91.4 fL (80.0-100.0); Mean Platelet Volume 9.9; Platelet Count 141 k/uL (150-450); RDW 13.8 % (11.5-15.5); WBC 4.1 k/uL (3.8-10.6)
[2019-08-11] MEDS ORDERED: LOPERAMIDE 2 MG CAP PO PRN (15:25)
--- NOTE | 2019-08-11 15:27 | P.PN ---
Subjective Progress Note Date: 08/11/19 Principal diagnosis: Diarrhea Patient was seen and examined. No acute events overnight. Patient reports complete resolution of her dizziness. No bowel movement since being in the hospital. She denies any chest pain, shortness of breath or palpitations. No nausea or vomiting. No fever or chills. Objective - Vital Signs Vital signs: Vital Signs Temp 98.3 F 08/11/19 12:32 Pulse 61 08/11/19 12:32 Resp 16 08/11/19 12:32 BP 99/60 08/11/19 12:32 Pulse Ox 99 08/11/19 12:32 Intake & Output 08/10/19 08/11/19 08/11/19 18:59 06:59 18:59 Intake Total 890 Balance 890 Weight 42.184 kg 40 kg 44.316 kg Intake: Intake, IV Titration 600 Amount Sodium Chloride 0.9% 1, 600 000 ml @ 100 mls/hr IV . Q10H ONE Rx#:[id number] Oral 290 Other: Voiding Method Toilet # Voids 1 - Exam General: [non toxic], [no distress], [appears at stated age] Derm: [warm], [dry] Head: [atraumatic], [normocephalic], [symmetric] Eyes: [EOMI], [no lid lag], [anicteric sclera] Mouth: [no lip lesion], [mucus membranes moist] Cardiovascular: [S1S2 reg], [no murmur], [positive DP pulse bilateral], Lungs: [CTA bilateral], [no rhonchi, no rales] , [no accessory muscle use] Abdominal: [soft], [ nontender to palpation], [no guarding], [no appreciable organomegaly] Ext: [no gross muscle atrophy], [no edema], [no contractures] Neuro: [no focal neuro deficits] Psych: [Alert], [oriented], [appropriate affect] - Labs CBC & Chem 7: 08/11/19 08:29 08/11/19 08:29 Labs: Abnormal Lab Results - Last 24 Hours (Table) 08/10/19 08/10/19 08/11/19 Range/Units 15:41 15:41 08:29 Plt Count 141 L (150-450) k/uL APTT 30.1 H (22.0-30.0) sec Sodium 127 L (137-145) mmol/L Chloride 91 L (98-107) mmol/L Carbon Dioxide (22-30) mmol/L BUN 62 H (7-17) mg/dL Creatinine 2.80 H (0.52-1.04) mg/dL Glucose 114 H (74-99) mg/dL Total Protein (6.3-8.2) g/dL Albumin (3.5-5.0) g/dL 08/11/19 Range/Units 08:29 Plt Count (150-450) k/uL APTT (22.0-30.0) sec Sodium 134 L (137-145) mmol/L Chloride (98-107) mmol/L Carbon Dioxide 20 L (22-30) mmol/L BUN 50 H (7-17) mg/dL Creatinine 1.87 H (0.52-1.04) mg/dL Glucose (74-99) mg/dL Total Protein 5.8 L (6.3-8.2) g/dL Albumin 3.4 L (3.5-5.0) g/dL Assessment and Plan Assessment: Assessment and Plan Lightheadedness likely orthostatic from volume depletion from intractable diarrhea Intractable diarrhea Acute kidney injury likely due to dehydration Hyponatremia likely due to dehydration Chronic conditions: COPD, CAD, hypertension, dyslipidemia Patient's dizziness has completely resolved. Described as positional when going from sitting to standing position. Likely orthostatic from volume depletion from intractable diarrhea. Plans: Continue normal saline at 100 mL per hour. Fall precautions. Telemetry monitoring. Repeat orthostatic vitals tomorrow morning. Follow PT recommendations. Likely due to antibiotic use. Plans: Follow C. diff. Follow stool culture. Imodium as needed. Creatinine improved from 2.8-1.87. Likely due to dehydration. Plans: Continue IVF as above. Repeat BMP tomorrow morning. Avoid nephrotoxins. Discontinue lisinopril. Sodium 127-134. Likely due to dehydration. Plans: Continue IVF as above. Repeat BMP tomorrow morning. [Patient is shown considerable improvement since admission. She continues to have acute kidney injury likely due to dehydration. We will hydrate the patient overnight and repeat BMP tomorrow morning. DC tomorrow if improved kidney function along with negative orthostats. We will also get PT to evaluate the patient.]
[2019-08-11] MEDS ORDERED: SODIUM CHLORIDE 0.9% 1,000 ML IV SCH (15:30)
[2019-08-11 21:00] VITALS: RESP 18
[2019-08-12 05:03] VITALS: BP 119/65; TEMP 97.4
[2019-08-12 07:56] LABS: Calcium 8.9 mg/dL (8.4-10.2); Potassium 4.6 mmol/L (3.5-5.1)
[2019-08-12] MEDS: SYMBICORT 80-4.5 MCG INHALER INHALATION SCH (08:00)
[2019-08-12] MEDS: IPRATROPIUM 0.5 MG/2.5 ML NEBU INHALATION SCH ×2 (08:00→11:45)
[2019-08-12] MEDS: APIXABAN 2.5 MG TABLET PO SCH (09:55)
[2019-08-12] MEDS: ATENOLOL 50 MG TAB PO SCH (09:55)
--- NOTE | 2019-08-12 10:34 | P.DS ---
Providers Date of admission: 08/10/19 19:28 Expected date of discharge: 08/12/19 Attending physician: Mala Sawyer MD Primary care physician: [facility] Course: The patient is an 84-year-old female with a PMH of COPD (on home nasal cannula oxygen 2 L continuously), Afib (on Eliquis), diastolic CHF (on lasix) w/ severe pulmonary HTN, coronary artery disease status post CABG, hypertension, and hyperlipidemia who presented to the ED due to persistent diarrhea and feeling lightheaded. The patient notes that she was diagnosed with UTI roughly 2 weeks ago at which time she was started on antibiotic by her PMD. She states that she finished the antibiotic a few days ago, though began having nonbloody diarrhea a few days after initiating her course which has since persisted. She reports having 3-5 nonbloody watery bowel movements daily. She notes that she also had some nausea and dry heaving along with some mild intermittent abdominal pain located in the epigastric region during the dry heaves. She states that due to her above symptoms, she has been unable to the ED or drink much over the past week and feels that she is dehydrated. Earlier today, she noticed that simply trying to stand up was causing her to become very lightheaded. The patient's granddaughter who is an RN, strongly advised the patient to seek medical attention, at which time the patient came to the ED. The patient underwent an extensive evaluation in the emergency room with a chest x-ray which revealed mild cardiomegaly and mild fibrosis along with an EKG which revealed A. fib at 81 bpm. Laboratory evaluation revealed hyponatremia with sodium of 127, potassium 4.9, BUN 62 (up from a baseline of 27), creatinine 2.80 (baseline 0.9), WBC count 6.9, hemoglobin 14.1, UA unremarkable, and lactate 1.6. Patient had complete resolution of her dizziness on admission. Her dizziness was thought to be secondary to orthostasis due to volume depletion from intractable diarrhea. She was continued on normal saline at 100 mL per hour. PT evaluated the patient during her hospitalization. Due to her diarrhea, C. diffand stool culture was performed. tests were unable to be done as patient did not have any bowel movements during her hosp italization. Patient elevated creatinine of 2.8 on admission. This was thought to be secondary to dehydration. Her creatinine trended down to 1.27 at the time of discharge. She was encouraged to hydrate by mouth. Patient was noted to have hyponatremia with sodium 127 on admission. This is thought to be due to dehydration. Her sodium improved to 135 on discharge. Patient was seen and examined. No acute events overnight. Patient reports complete resolution of her dizziness. Able to ambulate with physical therapy without any difficulties whatsoever. No diarrhea since admission. She denies any chest pain, shortness breath or palpitations. No nausea or vomiting. No fever or chills. Looking forward to going home. General: [non toxic], [no distress], [appears at stated age] Derm: [warm], [dry] Head: [atraumatic], [normocephalic], [symmetric] Eyes: [EOMI], [no lid lag], [anicteric sclera] Mouth: [no lip lesion], [mucus membranes moist] Cardiovascular: [S1S2 reg], [irregularly irregular], [positive DP pulse bilateral], Lungs: [CTA bilateral], [no rhonchi, no rales] , [no accessory muscle use] Abdominal: [soft], [ nontender to palpation], [no guarding], [no appreciable organomegaly] Ext: [no gross muscle atrophy], [no edema], [no contractures] Neuro: [no focal neuro deficits] Psych: [Alert], [oriented], [appropriate affect] Assessment and Plan Intractable diarrhea Acute kidney injury likely due to dehydration Hyponatremia likely due to dehydration Atrial fibrillation Chronic conditions: COPD, CAD, hypertension, dyslipidemia Resolved: Lightheadedness of Likely due to antibiotic use. Plans: Follow C. diff. Follow stool culture. Imodium as needed. Creatinine improved from 2.8-1.87-1.27. Likely due to dehydration. Plans: Con tinue IVF as above. Repeat BMP in 3 days, Follow up with PCP and encourage hydration by mouth. Avoid nephrotoxins. Resume lisinopril. Sodium 127-134-135. Likely due to dehydration. Plans: Repeat BMP in 3 days. Plans: Anticoagulation with Eliquis. Rate control with beta sravani. No need for orthostatic vitals as her symptoms have completely resolved and she is ambulating freely to the washroom and with physical therapy without any dizziness. [Patient is shown considerable improvement since admission. No difficulties with physical therapy. Plans on DC home today with repeat BMP in 3 days along with follow-up PCP. Patient verbalized understanding of the plan.] Pertinent Studies: chest x-ray Patient Condition at Discharge: Stable Plan - Discharge Summary Discharge Rx Participant: Yes New Discharge Prescriptions: New Loperamide [Imodium] 2 mg PO QID PRN #0 cap PRN Reason: Diarrhea Continue Atenolol [Tenormin] 50 mg PO DAILY Fluticasone/Salmeterol [Advair 250-50 Diskus] 1 puff INHALATION RT-BID Lisinopril [Zestril] 5 mg PO DAILY #30 tab Tiotropium 18 Mcg/Puff [Spiriva] 1 puff INHALATION RT-DAILY Potassium Chloride ER [K-Dur 10] 10 meq PO BID Apixaban [Eliquis] 2.5 mg PO BID Albuterol Nebulized [Ventolin Nebulized] 2.5 mg INHALATION RT-BID PRN PRN Reason: Shortness Of Breath Discharge Medication List Atenolol [Tenormin] 50 mg PO DAILY 12/30/14 [History] Fluticasone/Salmeterol [Advair 250-50 Diskus] 1 puff INHALATION RT-BID 04/09/16 [History] Lisinopril [Zestril] 5 mg PO DAILY #30 tab 04/02/19 [Rx] Albuterol Nebulized [Ventolin Nebulized] 2.5 mg INHALATION RT-BID PRN 08/10/19 [History] Apixaban [Eliquis] 2.5 mg PO BID 08/10/19 [History] Potassium Chloride ER [K-Dur 10] 10 meq PO BID 08/10/19 [History] Tiotropium 18 Mcg/Puff [Spiriva] 1 puff INHALATION RT-DAILY 08/10/19 [History] Loperamide [Imodium] 2 mg PO QID PRN #0 cap 08/12/19 [Rx] Follow up Appointment(s)/Referral(s): [facility] [NON-STAFF] - 1 Week Danilo Marrero MD [Primary Care Provider] - 1-2 days Activity/Diet/Wound Care/Special Instructions: Diet: Heart healthy Follow-up PCP within 3 days of discharge. Repeat BMP in 3 days. Encourage hydration by mouth. Take all medications as advised. Discharge Disposition: HOME SELF-CARE
[2019-08-12 11:52] VITALS: PULSE 80
== END 2019-08-12 13:04 | disposition home or self-care (01) | DRG 641 ==
LOC: EC 15:14 → 3NMEDONC 19:28
PROVIDERS: ADMIT Internal Medicine; ATTEND Internal Medicine
DX: E86.0 Dehydration (principal); N17.9 Acute kidney failure, unspecified; I48.19 Other persistent atrial fibrillation; I50.32 Chronic diastolic (congestive) heart failure; J96.11 Chronic respiratory failure with hypoxia; E87.1 Hypo-osmolality and hyponatremia; E78.5 Hyperlipidemia, unspecified; I11.0 Hypertensive heart disease with heart failure; I25.10 Atherosclerotic heart disease of native coronary artery without angina pectoris; I27.20 Pulmonary hypertension, unspecified; I73.00 Raynaud's syndrome without gangrene; J44.9 Chronic obstructive pulmonary disease, unspecified; Z79.01 Long term (current) use of anticoagulants; Z79.82 Long term (current) use of aspirin; Z79.899 Other long term (current) drug therapy; Z82.49 Family history of ischemic heart disease and other diseases of the circulatory system; Z87.440 Personal history of urinary (tract) infections; Z87.891 Personal history of nicotine dependence; Z95.1 Presence of aortocoronary bypass graft; Z88.2 Allergy status to sulfonamides
CPT/HCPCS: 36415; 71046; 80048; 80053; 81003; 83605; 83735; 84484; 85025; 85027; 85610; 85730; 93005; 94640; 94760; 96361; 96374; 99285

== ENCOUNTER 2020-01-20 10:48 | Inpatient (IN) | payer MEDICARE ==
--- NOTE | 2020-01-20 11:04 | ED ---
SOB HPI - General Source: patient Mode of arrival: wheelchair Limitations: no limitations <Yarely Benjamin - Last Filed: 01/20/20 14:32> <Arabella Montoya - Last Filed: 01/24/20 00:08> - General Chief Complaint: Shortness of Breath Stated Complaint: SOB/cough Time Seen by Provider: 01/20/20 11:00 - History of Present Illness Initial Comments: 84 or female with history of atrial fibrillation coronary artery disease with previous CABG performed 30 years ago heart failure COPD with chronic hypoxic respiratory failure on 2 L of home oxygen as well as history of severe pulmonary hypertension presenting today for chief complaint of shortness of breath increasing cough, leg swelling and weight gain. Patient states for the past 2 days she has had increasing shortness of breath especially while lying flat at night which seems to be the time that her cough is the worst. Patient denies hemoptysis denies unilateral leg swelling but states that she has bilateral leg swelling and a 4-5 pound weight gain within the last few days. Patient denies fever or URI symptoms. Patient admits to lightheaded, at times. Denies sensation that room is spinning or unsteady gait, denies visual changes, headaches, nausea, vomiting, or neck pain. Patient denies diarrhea, vomiting, abdominal or back pain. Patient denies pain with deep inspiration or chest pressure/pain> Patient upon arrival is hypoxic. BP and HR WNL. Initial temp read at 94.6 in triage, unsure if this is error however 97.3F personally recorded (axillary). Patient feels warm. (Yarely Benjamin) - Related Data Home Medications Medication Instructions Recorded Confirmed Atenolol [Tenormin] 50 mg PO DAILY 12/30/14 01/20/20 Fluticasone/Salmeterol [Advair 1 puff INHALATION RT-BID 04/09/16 01/20/20 250-50 Diskus] Albuterol Nebulized [Ventolin 2.5 mg INHALATION RT-BID PRN 08/10/19 01/20/20 Nebulized] Apixaban [Eliquis] 2.5 mg PO BID 08/10/19 01/20/20 Potassium Chloride ER [K-Dur 10] 10 meq PO BID 08/10/19 01/20/20 Tiotropium 18 Mcg/Puff [Spiriva] 1 puff INHALATION RT-DAILY 08/10/19 01/20/20 Previous Rx's Medication Instructions Recorded Lisinopril [Zestril] 5 mg PO DAILY #30 tab 04/02/19 Furosemide [Lasix] 40 mg PO BID #60 tab 01/22/20 Allergies Allergy/AdvReac Type Severity Reaction Status Date / Time Sulfa (Sulfonamide Allergy Rash/Hives Verified 01/20/20 13:19 Antibiotics) sulfamethoxazole Allergy Rash/Hives Verified 01/20/20 13:19 [From Bactrim] Review of Systems ROS Other: All systems not noted in ROS Statement are negative. <Yarely Benjamin - Last Filed: 01/20/20 14:32> ROS Other: All systems not noted in ROS Statement are negative. <Arabella Montoya - Last Filed: 01/24/20 00:08> ROS Statement: Those systems with pertinent positive or pertinent negative responses have been documented in the HPI. Past Medical History Past Medical History: Atrial Fibrillation, Coronary Artery Disease (CAD), Heart Failure, COPD, Deep Vein Thrombosis (DVT) Additional Past Medical History / Comment(s): Hypertension, dyslipidemia, irregular heartbeat, chronic hypoxic respiratory failure on 2 L nasal cannula, severe pulmonary hypertension, diverticulitis, uti couple weeks ago, raynauds History of Any Multi-Drug Resistant Organisms: None Reported Past Surgical History: Cholecystectomy, Coronary Bypass/CABG, Tonsillectomy Additional Past Surgical History / Comment(s): subdural hematoma 2003, CABG apx. 30 years ago, bladder sling apx 2004 Past Anesthesia/Blood Transfusion Reactions: No Reported Reaction Past Psychological History: No Psychological Hx Reported Smoking Status: Former smoker Past Alcohol Use History: Occasional Past Drug Use History: None Reported - Past Family History Father Family Medical History: Congestive Heart Failure (CHF), Hypertension Additional Family Medical History / Comment(s): aneurysm Mother Family Medical History: Hypertension <Yarely Benjamin - Last Filed: 01/20/20 14:32> General Exam Limitations: no limitations <Yarely Benjamin - Last Filed: 01/20/20 14:32> - General Exam Comments Initial Comments: General: The patient is awake and alert, in no distress, and does not appear acutely ill. Eye: +3 mm pupils are equal, round and reactive to light, extra-ocular movements are intact. No nystagmus. There is normal conjunctiva bilaterally. No signs of icterus. Ears, nose, mouth and throat: There are moist mucous membranes and no oral lesions. Neck: The neck is supple, there is no tenderness or JVD. Cardiovascular: There is a regular rate and rhythm. No murmur, rub or gallop is appreciated. Respiratory: Respirations are non-labored, breath sounds are equal. No wheezes, stridor. Rales. Gastrointestinal: Soft, non-distended, non-tender abdomen without masses or organomegaly noted. There is no rebound or guarding present. Musculoskeletal: Normal ROM, no tenderness. Strength 5/5. Sensation intact. Radial pulses equal bilaterally 2+. Neurological: A&O x 3. CN II-XII intact grossly, There are no obvious motor or sensory deficits. Coordination appears grossly intact. Speech is normal. Skin: Skin is warm and dry and no rashes or lesions are noted. B/l pitting Edema +1. Psychiatric: Cooperative, appropriate mood & affect, normal judgment. (Yarely Benjamin) Course Vital Signs 01/20/20 01/20/20 01/20/20 10:48 11:19 11:27 Temperature 94.6 F L 97.3 F L Pulse Rate 73 Respiratory 20 24 Rate Blood Pressure 114/71 O2 Sat by Pulse 89 L Oximetry 01/20/20 01/20/20 01/20/20 13:01 14:28 16:11 Temperature Pulse Rate 76 86 86 Respiratory 16 16 16 Rate Blood Pressure 124/74 132/86 132/86 O2 Sat by Pulse 97 99 98 Oximetry Medical Decision Making - Lab Data Result diagrams: 01/20/20 11:13 01/20/20 11:13 <Yarely Benjamin - Last Filed: 01/20/20 14:32> - Lab Data Result diagrams: 01/21/20 06:32 01/22/20 13:05 <Arabella Montoya - Last Filed: 01/24/20 00:08> - Medical Decision Making 84yo female with history of CHF presenting today for chief complaint of shortness of breath, leg swelling. Patient has findings on physical examination consistent with fluid overload. BNP elevated. Pleural effusions on chest x- ray. Patient does admit to cough that seems to be at night and when lying flat which is consistent CHF picture. Patient denies any fevers has no leukocytosis and I feel PNA is a less likely diagnosis. patient given IV lasix and will be admitted with cardiology consultation. Patient case accepted by IM physician Dr. Armenta. Dr. Montoya is aware of admission agreeable to care plan. Patient agreeable to admission and care plan. Remains stable in the ER. (Yarely Benjamin) I was available for consultation in the emergency department. The history and physical exam were done by the midlevel provider. I was consulted for this patients care. I reviewed the case with the midlevel provider and based on their presentation of the patient, I agree with the assessment, medical decision making and plan of care as documented. Chart was dictated using [employer] dictation software. Attempts were made to correct any dictation errors however some typographical errors may persist. Patient was seen during a national state of emergency due to the Covid-19 pandemic. (Arabella Montoya) - Lab Data Lab Results 01/20/20 01/20/20 01/20/20 Range/Units 11:13 11:13 11:13 WBC 4.4 (3.8-10.6) k/uL RBC 4.29 (3.80-5.40) m/uL Hgb 12.4 (11.4-16.0) gm/dL Hct 39.7 (34.0-46.0) % MCV 92.7 (80.0-100.0) fL MCH 29.0 (25.0-35.0) pg MCHC 31.3 (31.0-37.0) g/dL RDW 14.6 (11.5-15.5) % Plt Count 178 (150-450) k/uL Neutrophils % 66 % Lymphocytes % 21 % Monocytes % 9 % Eosinophils % 2 % Basophils % 0 % Neutrophils # 2.9 (1.3-7.7) k/uL Lymphocytes # 0.9 L (1.0-4.8) k/uL Monocytes # 0.4 (0-1.0) k/uL Eosinophils # 0.1 (0-0.7) k/uL Basophils # 0.0 (0-0.2) k/uL PT 13.6 H (9.0-12.0) sec INR 1.4 H (<1.2) APTT 28.1 (22.0-30.0) sec Sodium 132 L (137-145) mmol/L Potassium 4.5 (3.5-5.1) mmol/L Chloride 96 L (98-107) mmol/L Carbon Dioxide 24 (22-30) mmol/L Anion Gap 12 mmol/L BUN 36 H (7-17) mg/dL Creatinine 1.01 (0.52-1.04) mg/dL Est GFR (CKD-EPI)AfAm 58 (>60 ml/min/1.73 sqM) Est GFR (CKD-EPI)NonAf 51 (>60 ml/min/1.73 sqM) Glucose 115 H (74-99) mg/dL Plasma Lactic Acid Renard (0.7-2.0) mmol/L Calcium 9.3 (8.4-10.2) mg/dL Total Bilirubin 1.5 H (0.2-1.3) mg/dL AST 38 H (14-36) U/L ALT 15 (4-34) U/L Alkaline Phosphatase 120 (38-126) U/L Troponin I (0.000-0.034) ng/mL NT-Pro-B Natriuret Pep pg/mL Total Protein 7.2 (6.3-8.2) g/dL Albumin 4.2 (3.5-5.0) g/dL 01/20/20 01/20/20 01/20/20 Range/Units 11:13 11:13 11:13 WBC (3.8-10.6) k/uL RBC (3.80-5.40) m/uL Hgb (11.4-16.0) gm/dL Hct (34.0-46.0) % MCV (80.0-100.0) fL MCH (25.0-35.0) pg MCHC (31.0-37.0) g/dL RDW (11.5-15.5) % Plt Count (150-450) k/uL Neutrophils % % Lymphocytes % % Monocytes % % Eosinophils % % Basophils % % Neutrophils # (1.3-7.7) k/uL Lymphocytes # (1.0-4.8) k/uL Monocytes # (0-1.0) k/uL Eosinophils # (0-0.7) k/uL Basophils # (0-0.2) k/uL PT (9.0-12.0) sec INR (<1.2) APTT (22.0-30.0) sec Sodium (137-145) mmol/L Potassium (3.5-5.1) mmol/L Chloride (98-107) mmol/L Carbon Dioxide (22-30) mmol/L Anion Gap mmol/L BUN (7-17) mg/dL Creatinine (0.52-1.04) mg/dL Est GFR (CKD-EPI)AfAm (>60 ml/min/1.73 sqM) Est GFR (CKD-EPI)NonAf (>60 ml/min/1.73 sqM) Glucose (74-99) mg/dL Plasma Lactic Acid Renard 1.6 (0.7-2.0) mmol/L Calcium (8.4-10.2) mg/dL Total Bilirubin (0.2-1.3) mg/dL AST (14-36) U/L ALT (4-34) U/L Alkaline Phosphatase (38-126) U/L Troponin I <0.012 (0.000-0.034) ng/mL NT-Pro-B Natriuret Pep 5440 pg/mL Total Protein (6.3-8.2) g/dL Albumin (3.5-5.0) g/dL - EKG Data EKG Comments: Ventricular rate 64 bpm, QR administration 92 ms, QT/QTC 444/458. This is atrial fibrillation. No ST elevation or depression is appreciated EKG is similar in characteristic to that of 07/2019 (Yarely Benjamin) Disposition Is patient prescribed a controlled substance at d/c from ED?: No Time of Disposition: 12:27 Decision to Admit Reason: Admit from EC Decision Date: 01/20/20 Decision Time: 12:27 <Yarely Benjamin - Last Filed: 01/20/20 14:32> <Arabella Montoya - Last Filed: 01/24/20 00:08> Clinical Impression: Elevated brain natriuretic peptide (BNP) level, Shortness of breath, Orthopnea, Cough, Pleural effusion Disposition: ADMITTED IP TO THIS HOSP Condition: Stable
[2020-01-20 11:36] LABS: Basophils % (A) 0 %; Eosinophils # (A) 0.1 k/uL (0-0.7); Eosinophils % (A) 2 %; HCT 39.7 % (34.0-46.0); HGB 12.4 gm/dL (11.4-16.0); Lymphocytes # (A) 0.9 k/uL (1.0-4.8); Lymphocytes % (A) 21 %; MCHC 31.3 g/dL (31.0-37.0); MCV 92.7 fL (80.0-100.0); Mean Platelet Volume 9.2; Monocytes # (A) 0.4 k/uL (0-1.0); Monocytes % (A) 9 %; Neutrophils # (A) 2.9 k/uL (1.3-7.7); Neutrophils % (A) 66 %; Platelet Count 178 k/uL (150-450); RBC 4.29 m/uL (3.80-5.40); RDW 14.6 % (11.5-15.5); WBC 4.4 k/uL (3.8-10.6)
[2020-01-20 11:44] LABS: INR 1.4 (<1.2); Partial Thromboplastin Time 28.1 sec (22.0-30.0); Prothrombin Time 13.6 sec (9.0-12.0)
[2020-01-20 11:45] LABS: Albumin 4.2 g/dL (3.5-5.0); Calcium 9.3 mg/dL (8.4-10.2); Potassium 4.5 mmol/L (3.5-5.1); Total Bilirubin 1.5 mg/dL (0.2-1.3); Total Protein 7.2 g/dL (6.3-8.2)
--- NOTE | 2020-01-20 12:01 | XR ---
EXAMINATION TYPE: XR chest 2V DATE OF EXAM: 01/20/2020 COMPARISON: Prior chest 08/10/2019 HISTORY: Difficulty breathing and cough TECHNIQUE: Frontal and lateral views of the chest are obtained. FINDINGS: Patient is post median sternotomy. Heart is enlarged as on prior exam. The aorta is dense. No evident pneumothorax. There are interstitial changes the lung bases, minimal blunting the costoph renic angle on the right, difficult to exclude small effusion. Pulmonary vascularity and alysa not sig nificantly changed. There are coronary artery calcifications. IMPRESSION: Cardiomegaly, interstitial lung disease. Blunting of the costophrenic angle could repres ent minimal effusion or alternatively some pleural reaction.
[2020-01-20] MEDS ORDERED: FUROSEMIDE 10 MG/ML 4 ML VIAL IV STA (12:25)
[2020-01-20] MEDS ORDERED: NALOXONE 0.4 MG/ML 1 ML VIAL IV PRN (12:32)
[2020-01-20] MEDS ORDERED: ALBUTEROL NEBULIZED 2.5 MG/3 ML INHALATION PRN (18:14)
[2020-01-20] MEDS ORDERED: HYDROcodone/APAP 5-325MG 1 EACH TAB PO PRN (18:19)
[2020-01-20] MEDS ORDERED: ACETAMINOPHEN TAB 325 MG TAB PO PRN (18:19)
--- NOTE | 2020-01-20 18:19 | P.HPIM ---
History of Present Illness H&P Date: 01/20/20 Chief Complaint: Shortness of breath 84-year-old female with PMH of COPD on 2 L home O2, atrial fibrillation, diastolic CHF, CAD post CABG presents to the ED for shortness of breath. Patient reports 2 day history of exertional shortness of breath. She has also noticed swelling and tightness in her ankles bilaterally. Patient reports a cough that is dry when she lays down. She sleeps on 2 pillows at night. Patient reports following a low-salt diet. She also reported right-sided shoulder pain, 5 out of 10 in severity, throbbing in nature, associates it with laying on her side as she is unable to lay on her back over the last couple of days. She denies any headache, fever or chills, palpitations, chest pain, changes in urination or bowel habits. No changes in appetite or weight. She denies any dizziness, numbness/weakness/tingling of the extremities. In the ED, her vital signs were stable on 3 L nasal cannula. CBC was unremarkable. INR was 1.4. CMP showed sodium of 132, BUN of 36, glucose of 1:15, total bilirubin of 1.5, AST of 38. BNP was 5440, chest x-ray shows interstitial lung disease. Troponin was less than 0.012, EKG showing atrial fibrillation. Patient is admitted for dyspnea greater than 48 hours admission for decompensated diastolic CHF exacerbation with cardiology on consult. Review of Systems Pertinent positives and negatives as discussed in HPI, a complete review of systems was performed and all other systems are negative. Past Medical History Past Medical History: Atrial Fibrillation, Coronary Artery Disease (CAD), Heart Failure, COPD, Deep Vein Thrombosis (DVT) Additional Past Medical History / Comment(s): Hypertension, dyslipidemia, irregular heartbeat, chronic hypoxic respiratory failure on 2 L nasal cannula, severe pulmonary hypertension, diverticulitis, uti couple weeks ago, raynauds History of Any Multi-Drug Resistant Organisms: None Reported Past Surgical History: Cholecystectomy, Coronary Bypass/CABG, Tonsillectomy Additional Past Surgical History / Comment(s): subdural hematoma 2003, CABG apx. 30 years ago, bladder sling apx 2004 Past Anesthesia/Blood Transfusion Reactions: No Reported Reaction Past Psychological History: No Psychological Hx Reported Smoking Status: Former smoker Past Alcohol Use History: Occasional Past Drug Use History: None Reported - Past Family History Father Family Medical History: Congestive Heart Failure (CHF), Hypertension Additional Family Medical History / Comment(s): aneurysm Mother Family Medical History: Hypertension Medications and Allergies Home Medications Medication Instructions Recorded Confirmed Type Atenolol [Tenormin] 50 mg PO DAILY 12/30/14 01/20/20 History Fluticasone/Salmeterol [Advair 1 puff INHALATION RT-BID 04/09/16 01/20/20 History 250-50 Diskus] Lisinopril [Zestril] 5 mg PO DAILY #30 tab 04/02/19 01/20/20 Rx Albuterol Nebulized [Ventolin 2.5 mg INHALATION RT-BID PRN 08/10/19 01/20/20 History Nebulized] Apixaban [Eliquis] 2.5 mg PO BID 08/10/19 01/20/20 History Potassium Chloride ER [K-Dur 10] 10 meq PO BID 08/10/19 01/20/20 History Tiotropium 18 Mcg/Puff [Spiriva] 1 puff INHALATION RT-DAILY 08/10/19 01/20/20 History Furosemide [Lasix] 40 mg PO BID 01/20/20 01/20/20 History Allergies Allergy/AdvReac Type Severity Reaction Status Date / Time Sulfa (Sulfonamide Allergy Rash/Hives Verified 01/20/20 13:19 Antibiotics) sulfamethoxazole Allergy Rash/Hives Verified 01/20/20 13:19 [From Bactrim] Physical Exam Vitals: Vital Signs Temp Pulse Pulse Resp BP BP Pulse Ox 01/20/20 17:36 61 18 01/20/20 16:48 97.4 F L 61 18 154/70 100 01/20/20 16:11 86 16 132/86 98 01/20/20 14:28 86 16 132/86 99 01/20/20 13:01 76 16 124/74 97 01/20/20 11:27 97.3 F L 01/20/20 11:19 24 01/20/20 10:48 94.6 F L 73 20 114/71 89 L Intake and Output 01/20/20 01/20/20 01/20/20 06:59 14:59 22:59 Other: Weight 45.359 kg 45.359 kg General: [non toxic], [no distress], [appears at stated age] Derm: [warm], [dry] Head: [atraumatic], [normocephalic], [symmetric] Eyes: [EOMI], [no lid lag], [anicteric sclera] Mouth: [no lip lesion], [mucus membranes moist] Cardiovascular: [S1S2 irregular], [no murmur], [positive DP pulse bilateral], Lungs: [Decreased breath sounds bilateral], [ rales at the bases bilaterally] , [no accessory muscle use] Abdominal: [soft], [ nontender to palpation], [no guarding], [no appreciable organomegaly] Ext: [no gross muscle atrophy], [no edema], [no contractures] Neuro: [ CN II-XI grossly intact], [no focal neuro deficits] Psych: [Alert], [oriented], [appropriate affect] Results CBC & Chem 7: 01/20/20 11:13 01/20/20 11:13 Labs: Abnormal Lab Results - Last 24 Hours (Table) 01/20/20 01/20/20 01/20/20 Range/Units 11:13 11:13 11:13 Lymphocytes # 0.9 L (1.0-4.8) k/uL PT 13.6 H (9.0-12.0) sec INR 1.4 H (<1.2) Sodium 132 L (137-145) mmol/L Chloride 96 L (98-107) mmol/L BUN 36 H (7-17) mg/dL Glucose 115 H (74-99) mg/dL Total Bilirubin 1.5 H (0.2-1.3) mg/dL AST 38 H (14-36) U/L Thrombosis Risk Factor Assmnt - Choose All That Apply Each Factor Represents 1 point: Abnormal pulmonary function (COPD) Other Risk Factors: Yes Each Risk Factor Represents 3 Points: Age 75 years or older, History of DVT/PE Thrombosis Risk Factor Assessment Total Risk Factor Score: 7 Thrombosis Risk Factor Assessment Level: High Risk Assessment and Plan Assessment: Acute on chronic hypoxic respiratory failure Diastolic CHF exacerbation Hyponatremia with prerenal azotemia likely related to dehydration Chronic conditions: COPD, atrial fibrillation, CAD Patient's symptoms, physical exam, BNP and chest x-ray is consistent with di astolic CHF exacerbation. She will be started on Lasix 40 mg IV twice a day. She will be placed on a low-salt diet and cardiology will be consulted. Plans to obtain strict intake and output along with daily weights. Start telemetry monitoring. Repeat echocardiogram will be ordered. She'll be placed on O2 per NC to maintain O2 saturation greater than 92%. We will restart atenolol. Her sodium of 132 and BUN of 36 is likely related to dehydration. We will hold lisinopril and attempt to avoid other nephrotoxins. We will encourage hydration by mouth. Plans to repeat BMP tomorrow morning. We will restart beta sravani and Eliquis for history of atrial fibrillation. Albuterol neb as needed for shortness of breath or wheezing. DVT prophylaxis: [SCD] Discussed with: [Patient] Anticipated discharge: [2-3 days] Anticipated discharge place: [Home] A total of [45] minutes was spent on the care of this complex patient more than 50% of the time was spent in counseling and care coordination. Patient names her son Arsenio decision maker if she can't make decisions for herself. Patient would like to be no code.
[2020-01-20] MEDS: FUROSEMIDE 10 MG/ML 4 ML VIAL IV SCH (20:30)
[2020-01-20] MEDS: APIXABAN 2.5 MG TABLET PO SCH (20:33)
[2020-01-20] MEDS: SYMBICORT 80-4.5 MCG INHALER INHALATION SCH (20:37)
[2020-01-21 07:07] LABS: Basophils % (A) 1 %; Eosinophils # (A) 0.1 k/uL (0-0.7); Eosinophils % (A) 3 %; HCT 39.9 % (34.0-46.0); HGB 12.9 gm/dL (11.4-16.0); Lymphocytes # (A) 1.2 k/uL (1.0-4.8); Lymphocytes % (A) 31 %; MCH 30.2 pg (25.0-35.0); MCHC 32.5 g/dL (31.0-37.0); MCV 92.9 fL (80.0-100.0); Mean Platelet Volume 8.7; Monocytes # (A) 0.4 k/uL (0-1.0); Monocytes % (A) 9 %; Neutrophils # (A) 2.2 k/uL (1.3-7.7); Neutrophils % (A) 55 %; Platelet Count 183 k/uL (150-450); RBC 4.29 m/uL (3.80-5.40); RDW 14.8 % (11.5-15.5); WBC 4.1 k/uL (3.8-10.6)
[2020-01-21 07:35] LABS: Calcium 9.4 mg/dL (8.4-10.2); Potassium 4.3 mmol/L (3.5-5.1); Total Bilirubin 1.9 mg/dL (0.2-1.3); Total Protein 6.6 g/dL (6.3-8.2)
--- NOTE | 2020-01-21 07:54 | XR ---
EXAMINATION TYPE: XR chest 1V portable DATE OF EXAM: 01/21/2020 COMPARISON: Prior chest x-ray 01/20/2020 HISTORY: Congestive heart failure TECHNIQUE: Single frontal view of the chest is obtained. FINDINGS: Patient is post median sternotomy and the heart is enlarged. Aorta is dense. There are ove rlying cardiac leads. Interstitial changes are present at the lung bases bilaterally. No evident pneu mothorax or effusion. Suspect some minimal pleural reaction at the right costophrenic angle. IMPRESSION: Cardiomegaly, postop changes. Suspect interstitial lung disease.
[2020-01-21] MEDS: SYMBICORT 80-4.5 MCG INHALER INHALATION SCH ×2 (08:25→20:01)
[2020-01-21] MEDS: IPRATROPIUM 0.5 MG/2.5 ML NEBU INHALATION SCH ×4 (08:25→20:00)
[2020-01-21] MEDS: FUROSEMIDE 10 MG/ML 4 ML VIAL IV SCH ×2 (09:06→20:01)
[2020-01-21] MEDS: APIXABAN 2.5 MG TABLET PO SCH ×2 (09:06→20:01)
[2020-01-21 09:55] VITALS: BMI 18.3
--- NOTE | 2020-01-21 13:48 | P.PN ---
Subjective Progress Note Date: 01/21/20 Principal diagnosis: CHF exacerbation Patient was seen and examined. No acute events overnight. Patient reports considerable improvement in her symptoms since admission. Her cough is improved though persistent if she takes a deep inspiration. Patient reports slight improvement in her lower extremity swelling. She denies any chest pain or palpitations. No nausea or vomiting. No fever or chills. Objective - Vital Signs Vital signs: Vital Signs Temp 97.6 F 01/21/20 12:00 Pulse 66 01/21/20 12:00 Resp 16 01/21/20 12:00 BP 118/60 01/21/20 12:00 Pulse Ox 100 01/21/20 12:00 Intake & Output 01/20/20 01/21/20 01/21/20 18:59 06:59 18:59 Weight 45.359 kg 45.359 kg - Exam General: [non toxic], [no distress], [appears at stated age] Derm: [warm], [dry] Head: [atraumatic], [normocephalic], [symmetric] Eyes: [EOMI], [no lid lag], [anicteric sclera] Mouth: [no lip lesion], [mucus membranes moist] Cardiovascular: [S1S2 irregular], [no murmur], [positive DP pulse bilateral], Lungs: [Decreased breath sounds bilateral], [ rales at the bases bilaterally] , [no accessory muscle use] Abdominal: [soft], [ nontender to palpation], [no guarding], [no appreciable organomegaly] Ext: [no gross muscle atrophy], [no edema], [no contractures] Neuro: [ CN II-XI grossly intact], [no focal neuro deficits] Psych: [Alert], [oriented], [appropriate affect] - Labs CBC & Chem 7: 01/21/20 06:32 01/21/20 06:32 Labs: Abnormal Lab Results - Last 24 Hours (Table) 01/21/20 Range/Units 06:32 Sodium 134 L (137-145) mmol/L Chloride 97 L (98-107) mmol/L BUN 33 H (7-17) mg/dL Total Bilirubin 1.9 H (0.2-1.3) mg/dL Assessment and Plan Assessment: Acute on chronic hypoxic respiratory failure Diastolic CHF exacerbation Hyponatremia with prerenal azotemia likely related to dehydration Chronic conditions: COPD, atrial fibrillation, CAD Patient's symptoms, physical exam, BNP and chest x-ray is consistent with diastolic CHF exacerbation. She will be continued on Lasix 40 mg IV twice a day. She will be placed on a low-salt diet and cardiology will be consulted. Plans to obtain strict intake and output along with daily weights. Continue telemetry monitoring. Repeat echocardiogram taken and read is pending. She'll be placed on O2 per NC to maintain O2 saturation greater than 92%. Continue atenolol. Her sodium of 132 and BUN of 36 is likely related to dehydration. Her sodium has improved to 134 and BUN has improved to 33. We will hold lisinopril and attempt to avoid other nephrotoxins. We will encourage hydration by mouth. Plans to repeat BMP tomorrow morning. We will restart beta sravani and Eliquis for history of atrial fibrillation. Albuterol neb as needed for shortness of breath or wheezing. [Patient admitted for CHF exacerbation. Currently receiving IV Lasix. Echocardiogram taken and read pending. Cardiology consulted. She is pending clinical improvement. Likely DC in 1-2 days.]
[2020-01-22 08:01] VITALS: RESP 16
--- NOTE | 2020-01-22 08:27 | P.CRDCN ---
History of Present Illness History of present illness: Patient Karina Britton This is Dr. Ribeiro dictating a consult on this patient The patient was interviewed and examined by me IMPRESSION / ASSESSMENT: Symptoms consistent with congestive heart failure, LV function unknown at this point, Symptoms of exertional shortness of breath orthopnea Improvement in symptoms with IV Lasix Mildly elevated bilirubin but no abdominal symptoms Atrial fibrillation with a controlled ventricular response PLAN: Continue IV Lasix CMP today Controlled rate control medications and anticoagulation HPI 84-year-old female with a history of COPD on home oxygen and atrial fibrillation CAD status post coronary artery bypass grafting presenting with several day history of exertional shortness of breath, swelling around the ankles She reports a dry cough when she lies down and sleeps on 2 pillows at night. She also advised sided shoulder discomfort throbbing in nature when she lay on the right side Initial heart rates in the 70s and 80s and blood pressure normal between 124/74- 132/86. His mercury Symptoms have improved and she is lying more comfortably. She has no cough while lying flat in bed last night was comfortable She is on Lasix 40 mg every 12 ROS: No fever chills or rigors, no cough, phlegm or expectoration, no nausea, vomiting or diarrhea, no hematuria, dysuria, no musculoskeletal complaints, no strokes or seizures, no skin lesions. EXAMINATION: Blood pressure 105/57 mmHg pulse rate in the 70s, respirations nonlabored she has a cough Heart rates in the 60s and 70s Afebrile Soft systolic murmur over the precordium rhythm irregular No JVD at this time no lower extremity edema Abdomen is soft Some crackles at both bases bilaterally on lung exam REVIEW OF LABS, ECG & MEDICAL DATA White count 4.1, hemoglobin 12.9 Sodium 134 potassium 4.3 BUN 33 creatinine 1.02 Coronavirus nondetectable by PCR NT proBNP 5400 Mildly elevated bilirubin 1.9 Normal troponin Twelve-lead ECG shows atrial fibrillation with a controlled ventricular response. Inverted T waves/flattening of the T waves in the inferior leads and nonspecific ST segment abnormality in V4 V5 and V6, concave up was ST segments suggestive of digoxin effect Chest x-ray shows interstitial changes Past Medical History Past Medical History: Atrial Fibrillation, Coronary Artery Disease (CAD), Heart Failure, COPD, Deep Vein Thrombosis (DVT) Additional Past Medical History / Comment(s): Hypertension, dyslipidemia, irregular heartbeat, chronic hypoxic respiratory failure on 2 L nasal cannula, severe pulmonary hypertension, diverticulitis, uti couple weeks ago, raynauds History of Any Multi-Drug Resistant Organisms: None Reported Past Surgical History: Cholecystectomy, Coronary Bypass/CABG, Tonsillectomy Additional Past Surgical History / Comment(s): subdural hematoma 2003, CABG apx. 30 years ago, bladder sling apx 2004 Past Anesthesia/Blood Transfusion Reactions: No Reported Reaction Past Psychological History: No Psychological Hx Reported Smoking Status: Former smoker Past Alcohol Use History: Occasional Past Drug Use History: None Reported - Past Family History Father Family Medical History: Congestive Heart Failure (CHF), Hypertension Additional Family Medical History / Comment(s): aneurysm Mother Family Medical History: Hypertension Medications and Allergies Home Medications Medication Instructions Recorded Confirmed Type Atenolol [Tenormin] 50 mg PO DAILY 12/30/14 01/20/20 History Fluticasone/Salmeterol [Advair 1 puff INHALATION RT-BID 04/09/16 01/20/20 History 250-50 Diskus] Lisinopril [Zestril] 5 mg PO DAILY #30 tab 04/02/19 01/20/20 Rx Albuterol Nebulized [Ventolin 2.5 mg INHALATION RT-BID PRN 08/10/19 01/20/20 History Nebulized] Apixaban [Eliquis] 2.5 mg PO BID 08/10/19 01/20/20 History Potassium Chloride ER [K-Dur 10] 10 meq PO BID 08/10/19 01/20/20 History Tiotropium 18 Mcg/Puff [Spiriva] 1 puff INHALATION RT-DAILY 08/10/19 01/20/20 History Furosemide [Lasix] 40 mg PO BID 01/20/20 01/20/20 History Allergies Allergy/AdvReac Type Severity Reaction Status Date / Time Sulfa (Sulfonamide Allergy Rash/Hives Verified 01/20/20 13:19 Antibiotics) sulfamethoxazole Allergy Rash/Hives Verified 01/20/20 13:19 [From Bactrim] Physical Exam Vitals: Vital Signs Temp Pulse Pulse Resp BP Pulse Ox 01/22/20 03:47 98.0 F 67 16 105/60 94 L 01/21/20 23:05 97.8 F 74 18 105/57 96 01/21/20 20:15 82 05/23/20 20:01 80 01/21/20 19:35 98.1 F 61 16 104/64 97 01/21/20 19:30 16 01/21/20 16:42 78 01/21/20 16:28 76 95 01/21/20 16:00 97.6 F 80 16 103/51 98 01/21/20 12:00 97.6 F 66 16 118/60 100 01/21/20 11:46 76 01/21/20 11:37 74 01/21/20 08:35 72 01/21/20 08:27 68 01/21/20 08:00 97.7 F 61 16 115/56 96 Intake and Output 01/21/20 01/22/20 01/22/20 22:59 06:59 14:59 Other: Weight 44.2 kg Results 01/21/20 06:32 01/21/20 06:32 Current Medications Generic Name Dose Route Start Last Admin Trade Name Freq PRN Reason Stop Dose Admin Acetaminophen 650 mg 01/20/20 18:19 Tylenol Tab PO Q6HR PRN Mild Pain or Fever > 100.5 Hydrocodone Bitart/Acetaminophen 1 each 01/20/20 18:19 [place] 5-325 PO Q4HR PRN Moderate Pain Albuterol Sulfate 2.5 mg 01/20/20 18:14 Ventolin Nebulized INHALATION RT-BID PRN Shortness Of Breath Apixaban 2.5 mg 01/20/20 21:00 01/21/20 20:01 Eliquis PO 2.5 mg BID EVELYN Administration Budesonide/Formoterol Fumarate 2 puff 01/20/20 20:00 01/21/20 20:01 Symbicort 80-4.5 Mcg Inhaler INHALATION 2 puff RT-BID EVELYN Administration Furosemide 40 mg 01/20/20 21:00 01/21/20 20:01 Lasix IV 40 mg Q12HR EVELYN Administration Ipratropium [place] 0.5 mg 01/21/20 08:00 01/21/20 20:00 Atrovent Nebulized INHALATION 0.5 mg RT-QID EVELYN Administration Naloxone HCl 0.2 mg 01/20/20 12:32 Narcan IV Q2M PRN Opioid Reversal Intake and Output 01/21/20 01/22/20 01/22/20 22:59 06:59 14:59 Other: Weight 44.2 kg 01/21/20 06:32 01/21/20 06:32
[2020-01-22] MEDS: IPRATROPIUM 0.5 MG/2.5 ML NEBU INHALATION SCH ×2 (08:29→11:28)
[2020-01-22] MEDS: SYMBICORT 80-4.5 MCG INHALER INHALATION SCH (08:29)
[2020-01-22] MEDS: APIXABAN 2.5 MG TABLET PO SCH (08:31)
[2020-01-22] MEDS: FUROSEMIDE 10 MG/ML 4 ML VIAL IV SCH (08:31)
[2020-01-22 09:33] LABS: Calcium 9.4 mg/dL (8.4-10.2); Potassium 3.3 mmol/L (3.5-5.1); Total Bilirubin 1.6 mg/dL (0.2-1.3); Total Protein 6.7 g/dL (6.3-8.2)
[2020-01-22] MEDS ORDERED: Potassium Replacement Protocol 1 EACH MISC MISCELLANE PRN (10:07)
[2020-01-22] MEDS: POTASSIUM CHLORIDE ER 20 MEQ TAB.ER PO SCH ×2 (10:28→11:26)
[2020-01-22 12:32] VITALS: BP 127/70; PULSE 75; TEMP 98.3
--- NOTE | 2020-01-22 14:00 | ECHOF ---
Referral Reason:SOB MEASUREMENTS -------- HEIGHT: 157.5 cm WEIGHT: 45.4 kg BP: 130/70 IVSd: 1.3 cm (0.6 - 1.1) LVIDd: 3.6 cm (3.9 - 5.3) LVPWd: 1.5 cm (0.6 - 1.1) IVSs: 1.6 cm LVIDs: 2.3 cm LVPWs: 1.6 cm RVIDd: 4.2 cm (< 3.3) LAESV Index (A-L): 53.54 ml/m Ao Diam: 3.8 cm (2.0 - 3.7) AV Cusp: 1.5 cm (1.5 - 2.6) EPSS: 0.3 cm MV E Marques: 1.24 m/s MV DecT: 175 ms MV A Marques: 0.32 m/s MV E/A Ratio: 3.82 AR PHT: 538 ms RAP: 20.00 mmHg RVSP: 81.38 mmHg MV EF SLOPE: 139.55 mm/s (70 - 150) MV EXCURSION: 20.65 mm (> 18.000) FINDINGS -------- Sinus rhythm. This was a technically adequate study. The left ventricular size is normal. There is mild concentric left ventricular hypertrophy. Overa ll left ventricular systolic function is low-normal with, an EF between 50 - 55 %. Increased Lap Gr leland II Diastolic Dysfunction. Septal wall motion is delayed and consistent with prior cardiac surge ry. The right ventricle is severely enlarged. LA is severely dilated >40 ml/m2 The right atrium is moderately enlarged. Interatrial and interventricular septum intact. The aortic valve is trileaflet and appears structurally normal. There is moderate aortic regurgitat ion. There is no evidence of aortic stenosis. Mild mitral annular calcification present. Moderate mitral regurgitation is present. Severe tricuspid regurgitation present. There is severe pulmonary hypertension. The right ventric ular systolic pressure, as measured by Doppler, is 81.38mmHg. Trace/mild (physiologic) pulmonic regurgitation. The aortic root size is normal. The inferior vena cava is dilated with poor inspiratory collapse which is consistent with estimated r ight atrial pressure of 20 mmHg. There is no pericardial effusion. CONCLUSIONS -------- 1. Sinus rhythm. 2. This was a technically adequate study. 3. The left ventricular size is normal. 4. There is mild concentric left ventricular hypertrophy. 5. Overall left ventricular systolic function is low-normal with, an EF between 50 - 55 %. 6. Increased Lap Grade II Diastolic Dysfunction. 7. Septal wall motion is delayed and consistent with prior cardiac surgery. 8. The right ventricle is severely enlarged. 9. LA is severely dilated >40 ml/m2 10. The right atrium is moderately enlarged. 11. Interatrial and interventricular septum intact. 12. The aortic valve is trileaflet and appears structurally normal. 13. There is moderate aortic regurgitation. 14. There is no evidence of aortic stenosis. 15. Mild mitral annular calcification present. 16. Moderate mitral regurgitation is present. 17. Severe tricuspid regurgitation present. 18. There is severe pulmonary hypertension. 19. The right ventricular systolic pressure, as measured by Doppler, is 81.38mmHg. 20. Trace/mild (physiologic) pulmonic regurgitation. 21. The aortic root size is normal. 22. The inferior vena cava is dilated with poor inspiratory collapse which is consistent with estimat ed right atrial pressure of 20 mmHg. 23. There is no pericardial effusion. CARDING DOUBLER: Nabila Hanson RDCS
--- NOTE | 2020-01-22 15:08 | P.DS ---
Providers Date of admission: 01/20/20 13:45 Expected date of discharge: 01/22/20 Attending physician: Emily Che MD Consults: 01/20/20 12:33 Consult Physician Routine Consulting Provider: Nasim Singh Consult Reason/Comments: CHF exacerbation Do you want consulting provider notified?: Yes Primary care physician: [facility] Course: 84-year-old female with PMH of COPD on 2 L home O2, atrial fibrillation, diastolic CHF, CAD post CABG presents to the ED for shortness of breath. Patient reports 2 day history of exertional shortness of breath. She has also n oticed swelling and tightness in her ankles bilaterally. Patient reports a cough that is dry when she lays down. She sleeps on 2 pillows at night. Patient reports following a low-salt diet. She also reported right-sided shoulder pain, 5 out of 10 in severity, throbbing in nature, associates it with laying on her side as she is unable to lay on her back over the last couple of days. She denies any headache, fever or chills, palpitations, chest pain, changes in urination or bowel habits. No changes in appetite or weight. She denies any dizziness, numbness/weakness/tingling of the extremities. In the ED, her vital signs were stable on 3 L nasal cannula. CBC was unremarkable. INR was 1.4. CMP showed sodium of 132, BUN of 36, glucose of 115, total bilirubin of 1.5, AST of 38. BNP was 5440, chest x-ray shows interstitial lung disease. Troponin was less than 0.012, EKG showing atrial fibrillation. Patient is admitted for dyspnea greater than 48 hours admission for decompensated diastolic CHF exacerbation with cardiology on consult. Her symptoms are consistent with diastolic CHF exacerbation. She was started on Lasix 40 mg IV twice a day. She was started on a low-salt diet and cardiology was consulted. Echocardiogram was obtained which showed normal EF and grade 2 diastolic dysfunction. She was continued on atenolol. She did have a sodium of 132 and BUN of 36 which improved to sodium of 134 and BUN of 33 at the time of discharge. This is thought to be related to dehydration. She did have a potassium of 3.3 on the day of discharge. This was replaced via protocol. Repeat potassium was within normal limits. Patient was seen and examined. No acute events overnight. Patient reports breathing is back to baseline. She denies any chest pain, shortness of breath or palpitations. Is on 2 L of oxygen at home. Wanting to go home today. General: [non toxic], [no distress], [appears at stated age] Derm: [warm], [dry] Head: [atraumatic], [normocephalic], [symmetric] Eyes: [EOMI], [no lid lag], [anicteric sclera] Mouth: [no lip lesion], [mucus membranes moist] Cardiovascular: [S1S2 irregular], [no murmur], [positive DP pulse bilateral], Lungs: [Decreased breath sounds bilateral], [ rales at the bases bilaterally] , [no accessory muscle use] Abdominal: [soft], [ nontender to palpation], [no guarding], [no appreciable organomegaly] Ext: [no gross muscle atrophy], [no edema], [no contractures] Neuro: [no focal neuro deficits] Psych: [Alert], [oriented], [appropriate affect] Acute on chronic hypoxic respiratory failure Diastolic CHF exacerbation Hyponatremia with prerenal azotemia likely related to dehydration Hypokalemia Chronic conditions: COPD, atrial fibrillation, CAD Patient's symptoms, physical exam, BNP and chest x-ray is consistent with diastolic CHF exacerbation. She will be transitioned to Lasix 40 mg by mouth twice a day. She was previously on 40 mg of Lasix in the morning and 20 mg of Lasix at night. Have advised her to maintain a log of her weight on a daily basis. She has been advised that she can take an extra dose of Lasix if need be if she notices shortness of breath, swelling in her lower extremities or increase in weight gain. Cardiology has been consulted and is following the patient. Continue telemetry monitoring. Repeat echocardiogram shows normal EF and grade 2 diastolic dysfunction. She'll be continued on atenolol. Her sodium of 132 and BUN of 36 is likely related to dehydration. Her sodium has improved to 134 and BUN has improved to 33. We will hold lisinopril and attempt to avoid other nephrotoxins. We will encourage hydration by mouth. Potassium of 3.3 this morning which is likely related to Lasix use. Her potassium was replaced via protocol and repeat potassium was within normal limits. We will restart beta sravani and Eliquis for history of atrial fibrillation. Albuterol neb as needed for shortness of breath or wheezing. [Patient admitted for CHF exacerbation. Symptoms back to baseline. Patient requesting discharge. Will DC home with close follow-up with PCP within 3 days. Follow-up with cardiology within 1 week. This complex discharge took about 45 minutes to complete.] Health Concerns: Chest x-ray, echocardiogram Patient Condition at Discharge: Stable Plan - Discharge Summary Discharge Rx Participant: Yes New Discharge Prescriptions: Continue Atenolol [Tenormin] 50 mg PO DAILY Fluticasone/Salmeterol [Advair 250-50 Diskus] 1 puff INHALATION RT-BID Lisinopril [Zestril] 5 mg PO DAILY #30 tab Tiotropium 18 Mcg/Puff [Spiriva] 1 puff INHALATION RT-DAILY Potassium Chloride ER [K-Dur 10] 10 meq PO BID Apixaban [Eliquis] 2.5 mg PO BID Albuterol Nebulized [Ventolin Nebulized] 2.5 mg INHALATION RT-BID PRN PRN Reason: Shortness Of Breath Furosemide [Lasix] 40 mg PO BID #60 tab Discharge Medication List Atenolol [Tenormin] 50 mg PO DAILY 12/30/14 [History] Fluticasone/Salmeterol [Advair 250-50 Diskus] 1 puff INHALATION RT-BID 04/09/16 [History] Lisinopril [Zestril] 5 mg PO DAILY #30 tab 04/02/19 [Rx] Albuterol Nebulized [Ventolin Nebulized] 2.5 mg INHALATION RT-BID PRN 08/10/19 [History] Apixaban [Eliquis] 2.5 mg PO BID 08/10/19 [History] Potassium Chloride ER [K-Dur 10] 10 meq PO BID 08/10/19 [History] Tiotropium 18 Mcg/Puff [Spiriva] 1 puff INHALATION RT-DAILY 08/10/19 [History] Furosemide [Lasix] 40 mg PO BID #60 tab 01/22/20 [Rx] Follow up Appointment(s)/Referral(s): Devan Ribeiro MD [STAFF PHYSICIAN] - 1 Week Danilo Marrero MD [Primary Care Provider] - 1-2 days Patient Instructions/Handouts: Heart Failure (GEN), COPD (Chronic Obstructive Pulmonary Disease) (GEN) Activity/Diet/Wound Care/Special Instructions: Diet: Low salt FU PCP within 3 days of DC. FU Cardiology within 1 week. Discussed checking daily weight. Advised to take extra dose of lasix if patient feels that she is retaining fluid.
== END 2020-01-22 15:16 | disposition home or self-care (01) | DRG 291 ==
LOC: EC 10:48 → 3SCARD 13:45
PROVIDERS: ADMIT Family Medicine; ATTEND Family Medicine
DX: I11.0 Hypertensive heart disease with heart failure (principal); J96.21 Acute and chronic respiratory failure with hypoxia; E87.1 Hypo-osmolality and hyponatremia; J84.9 Interstitial pulmonary disease, unspecified; I50.33 Acute on chronic diastolic (congestive) heart failure; I27.20 Pulmonary hypertension, unspecified; E86.0 Dehydration; E78.5 Hyperlipidemia, unspecified; I25.10 Atherosclerotic heart disease of native coronary artery without angina pectoris; I48.91 Unspecified atrial fibrillation; I73.00 Raynaud's syndrome without gangrene; J44.9 Chronic obstructive pulmonary disease, unspecified; M25.511 Pain in right shoulder; Z11.59 Encounter for screening for other viral diseases; Z79.01 Long term (current) use of anticoagulants; Z79.899 Other long term (current) drug therapy; Z87.440 Personal history of urinary (tract) infections; Z87.891 Personal history of nicotine dependence; Z95.1 Presence of aortocoronary bypass graft; Z99.81 Dependence on supplemental oxygen; Z88.2 Allergy status to sulfonamides; Z86.718 Personal history of other venous thrombosis and embolism; Z90.49 Acquired absence of other specified parts of digestive tract; Z82.49 Family history of ischemic heart disease and other diseases of the circulatory system
CPT/HCPCS: 36415; 71045; 71046; 80053; 83605; 83880; 84132; 84484; 85025; 85610; 85730; 87635; 93005; 93306; 94640; 96374; 99285

== ENCOUNTER 2020-06-01 09:45 | Emergency (ER) | payer MEDICARE ==
[2020-06-01 09:52] VITALS: TEMP 97.7
[2020-06-01] MEDS ORDERED: TOPICAL SKIN ADHESIVE 1 EACH AMP TOPICAL ONE (10:03)
--- NOTE | 2020-06-01 10:35 | ED ---
General Adult HPI - General Chief complaint: Wound/Laceration Stated complaint: skin tear, bleeding Time Seen by Provider: 06/01/20 09:55 Source: patient, EMS, RN notes reviewed Mode of arrival: EMS Limitations: no limitations - History of Present Illness Initial comments: 84-year-old female presents to the emergency room for chief complaint of bleeding from the left leg. Patient states she got out of bed and was suddenly having some bleeding from her leg. Patient states she could not get it to stop. She therefore called EMS as her primary care provider stated they could not see her in the office. Patient denies any injury. Patient has varicose veins. Patient also complaining of oral thrush. States she gets this from her inhalers. She states that when she called primary care today they asked if we could send her a prescription for her thrush. Patient has had this several times prior. Patient has no other complaints at this time including shortness of breath, chest pain, abdominal pain, nausea or vomiting, headache, or visual changes. - Related Data Home Medications Medication Instructions Recorded Confirmed atenoloL [Tenormin] 50 mg PO DAILY 12/30/14 01/20/20 Albuterol Nebulized [Ventolin 2.5 mg INHALATION RT-BID PRN 08/10/19 01/20/20 Nebulized] Apixaban [Eliquis] 2.5 mg PO BID 08/10/19 01/20/20 Tiotropium 18 Mcg/Puff [Spiriva] 1 puff INHALATION RT-DAILY 08/10/19 01/20/20 Acetaminophen Tab [Tylenol Tab] 1,000 mg PO Q6HR PRN 06/01/20 06/01/20 Azithromycin [Zithromax] 500 mg PO DAILY 06/01/20 06/01/20 Budesonide-Formot 160-4.5 Mcg 1 puff INHALATION RT-BID 06/01/20 06/01/20 [Symbicort 160-4.5 Mcg Inhaler] Triamcinolone Acetonide 1 applic TOPICAL DAILY PRN 06/01/20 06/01/20 [Triamcinolone Acetonide 0.025%] Previous Rx's Medication Instructions Recorded lisinopriL [Zestril] 5 mg PO DAILY #30 tab 04/02/19 Furosemide [Lasix] 40 mg PO BID #60 tab 01/22/20 Nystatin 100,000 Unit/ml Susp 5 ml PO QID 14 Days #280 ml 06/01/20 [Mycostatin Oral Susp] Allergies Allergy/AdvReac Type Severity Reaction Status Date / Time Sulfa (Sulfonamide Allergy Rash/Hives Verified 06/01/20 10:28 Antibiotics) sulfamethoxazole Allergy Rash/Hives Verified 06/01/20 10:28 [From Bactrim] Review of Systems ROS Statement: Those systems with pertinent positive or pertinent negative responses have been documented in the HPI. ROS Other: All systems not noted in ROS Statement are negative. Past Medical History Past Medical History: Atrial Fibrillation, Coronary Artery Disease (CAD), Heart Failure, COPD, Deep Vein Thrombosis (DVT) Additional Past Medical History / Comment(s): Hypertension, dyslipidemia, irregular heartbeat, chronic hypoxic respiratory failure on 2 L nasal cannula, severe pulmonary hypertension, diverticulitis, uti couple weeks ago, raynauds History of Any Multi-Drug Resistant Organisms: None Reported Past Surgical History: Cholecystectomy, Coronary Bypass/CABG, Tonsillectomy Additional Past Surgical History / Comment(s): subdural hematoma 2003, CABG apx. 30 years ago, bladder sling apx 2004 Past Anesthesia/Blood Transfusion Reactions: No Reported Reaction Past Psychological History: No Psychological Hx Reported Smoking Status: Never smoker Past Alcohol Use History: Occasional Past Drug Use History: None Reported - Past Family History Father Family Medical History: Congestive Heart Failure (CHF), Hypertension Additional Family Medical History / Comment(s): aneurysm Mother Family Medical History: Hypertension General Exam Limitations: no limitations General appearance: alert, in no apparent distress Head exam: Present: atraumatic, normocephalic, normal inspection Eye exam: Present: normal appearance, PERRL, EOMI. Absent: scleral icterus, conjunctival injection, periorbital swelling ENT exam: Present: normal exam, mucous membranes moist. Absent: normal oropharynx (Patient has satellite lesions of thrush noted on soft and hard palate) Neck exam: Present: normal inspection, full ROM. Absent: tenderness, meningismus, lymphadenopathy Respiratory exam: Present: normal lung sounds bilaterally. Absent: respiratory distress, wheezes, rales, rhonchi, stridor Cardiovascular Exam: Present: regular rate, normal rhythm, normal heart sounds. Absent: systolic murmur, diastolic murmur, rubs, gallop, clicks GI/Abdominal exam: Present: soft, normal bowel sounds. Absent: distended, tenderness, guarding, rebound, rigid Extremities exam: Present: other (Patient has small pinpoint area on the varicose vein that was bleeding. Hemostasis is currently achieved. No active bleeding whatsoever. No lacerations or abrasions.) Neurological exam: Present: alert Course Vital Signs 06/01/20 09:48 Temperature 97.7 F Pulse Rate 64 Blood Pressure 149/85 O2 Sat by Pulse 98 Oximetry Procedures - Laceration Laceration #1 Consent Obtained: verbal consent Indication: laceration Site: lower extremity Size of Sutures: other (exofin) Technique: simple, interrupted Patient Tolerated Procedure: well, no complications Medical Decision Making - Medical Decision Making Exofin was applied to area over the location where a varicose vein was bleeding. No active bleeding at this time. Patient was ambulated after glue applied and did not have recurrence in bleeding. She will was wrapped with gauze. Return parameters and care instructions were given. Patient also has thrush noted in the oropharynx. She was started on nystatin prescription. She will follow-up with her doctor for recheck next week. Disposition Clinical Impression: Bleeding from varicose vein, Thrush Disposition: HOME SELF-CARE Condition: Good Instructions (If sedation given, give patient instructions): Skin Adhesive Care (ED) Additional Instructions: Take medication as directed. Follow-up with your doctor for recheck next week. Return to the emergency room for any worsening symptoms. If your wound starts to bleed apply direct pressure for 20 minutes and keep elevated. Prescriptions: Nystatin 100,000 Unit/ml Susp [Mycostatin Oral Susp] 5 ml PO QID 14 Days #280 ml Is patient prescribed a controlled substance at d/c from ED?: No Referrals: Lobo Mims MD [REFERRING] - 1-2 days Time of Disposition: 10:50
[2020-06-01 11:58] VITALS: BP 132/79; PULSE 87; RESP 20
== END 2020-06-01 11:58 | disposition home or self-care (01) ==
LOC: EC 09:45
DX: I83.892 Varicose veins of left lower extremity with other complications (principal); B37.0 Candidal stomatitis; J44.9 Chronic obstructive pulmonary disease, unspecified; I48.91 Unspecified atrial fibrillation; Z79.01 Long term (current) use of anticoagulants; Z79.51 Long term (current) use of inhaled steroids; Z95.1 Presence of aortocoronary bypass graft; Z86.718 Personal history of other venous thrombosis and embolism; Z88.2 Allergy status to sulfonamides
CPT/HCPCS: 12001; 99283

== ENCOUNTER 2020-06-25 14:58 | Inpatient (IN) | payer MEDICARE ==
--- NOTE | 2020-06-25 15:26 | ED ---
General Adult HPI - General Chief complaint: Neuro Symptoms/Deficit Stated complaint: arm pain/tingling Time Seen by Provider: 06/25/20 15:11 Source: EMS Mode of arrival: EMS Limitations: no limitations - History of Present Illness Initial comments: Dictation was produced using [employer] dictation software. please excuse any grammatical, word or spelling errors. This patient was cared for during a federal and state declared state of emergency secondary to Covid 19 Chief Complaint: 84-year-old female presents with right hand numbness. History of Present Illness: 84-year-old female she was brought in by EMS. Patient was at home by herself approximately 2 hours ago when she all of a sudden experience acute hand numbness associated with aching to the right shoulder. She called her family members and EMS was called for concerns of possible stroke. Patient has multiple comorbidities. She has history of A. fib, heart failure COPD DVT. She does take apixaban. Daughter is at bedside reports no facial weakness, no aphasia patient has no other symptoms. She reports she is has never experienced anything this before. She does not have a history of peripheral vascular disease. She has any chest pain. She does have a mild vague ache to the right upper arm at approximately the shoulder area. She states that since being in emergency department her symptoms are improved although she still continues to feel some paresthesias to the distal fingertips of all digits of the right hand. The ROS documented in this emergency department record has been reviewed and confirmed by me. Those systems with pertinent positive or negative responses have been documented in the HPI. All other systems are other negative and/or noncontributory. PHYSICAL EXAM: General Impression: Alert and oriented x3, not in acute distress HEENT: Normocephalic atraumatic, extra-ocular movements intact, pupils equal and reactive to light bilaterally, mucous membranes moist. Cardiovascular: Heart regular rate and rhythm Chest: Able to complete full sentences, no retractions, no tachypnea Abdomen: abdomen soft, non-tender, non-distended, no organomegaly Musculoskeletal: no peripheral edema Upper extremity is: Absent right radial pulse compared to the left, there is some pallor of the right hand compared to the left. She has bilateral dorsalis pedis pulses. Motor: no focal deficits noted Neurological: CN II-XII grossly intact, no focal motor or sensory deficits noted, no aphasia, no extremity drift, sensory changes to the right hand Skin: Intact with no visualized rashes Psych: Normal affect and mood ED course: 84-year-old female presents with acute onset right hand numbness starting approximately 2 hours ago. Signs upon arrival are within acceptable limits. Patient hasn't absent radial pulse in the right upper extremity. There is concern of acute arterial occlusion to the right upper extremity. She reports her symptoms are much more improved since its onset 2 hours ago Laboratory evaluation obtained. CBC, coag panel, metabolic panel is obtained. Patient is hyponatremic at 129. No gap acidosis. No lactic acidosis. Troponin is 0.023. Chest x-ray is nonacute. CT angio of the thoracic and abdominal aorta shows moderate severe cardiomegaly. There is basilar pulmonary infiltrates or pleural thickening. There is a filling defect a left lower lobe pulmonary artery showing chronic pulmonary embolus. CT angiogram of the right upper extremity shows complete occlusion of the kathya there is a filling defect of the axillary artery. Small branches of subclavian artery. Gin of the right axillary artery at the level of the glenoid. Case is discussed with Dr. Chamberlain. After I received a call from radiology regarding patient's symptoms. Dr. Chamberlain will come and evaluate the patient with possible disposition to the operating room for surgical intervention. Case is discussed with Dr. Mortensen who is willing to be the accepting hospitalist. EKG interpretation: Ventricular rate 68, A. fib, QRS 82, QTC 423. No WA prolongation, no QTC prolongation, no ST or T-wave changes noted. EKG compared to 01/20/2020 showing no changes. Overall, this EKG is unremarkable - Related Data Home Medications Medication Instructions Recorded Confirmed atenoloL [Tenormin] 50 mg PO DAILY 12/30/14 06/01/20 Albuterol Nebulized [Ventolin 2.5 mg INHALATION RT-BID 08/10/19 06/01/20 Nebulized] Apixaban [Eliquis] 2.5 mg PO BID 08/10/19 06/01/20 Tiotropium 18 Mcg/Puff [Spiriva] 1 puff INHALATION RT-DAILY 08/10/19 06/01/20 Acetaminophen Tab [Tylenol Tab] 1,000 mg PO Q6HR PRN 06/01/20 06/01/20 Azithromycin [Zithromax] 500 mg PO DAILY 06/01/20 06/01/20 Budesonide-Formot 160-4.5 Mcg 1 puff INHALATION RT-BID 06/01/20 06/01/20 [Symbicort 160-4.5 Mcg Inhaler] Triamcinolone Acetonide 1 applic TOPICAL DAILY PRN 06/01/20 06/01/20 [Triamcinolone Acetonide 0.025%] Previous Rx's Medication Instructions Recorded lisinopriL [Zestril] 5 mg PO DAILY #30 tab 04/02/19 Furosemide [Lasix] 40 mg PO BID #60 tab 01/22/20 Nystatin 100,000 Unit/ml Susp 5 ml PO QID 14 Days #280 ml 06/01/20 [Mycostatin Oral Susp] Allergies Allergy/AdvReac Type Severity Reaction Status Date / Time Sulfa (Sulfonamide Allergy Rash/Hives Verified 06/01/20 10:28 Antibiotics) sulfamethoxazole Allergy Rash/Hives Verified 06/01/20 10:28 [From Bactrim] Review of Systems ROS Statement: Those systems with pertinent positive or pertinent negative responses have been documented in the HPI. ROS Other: All systems not noted in ROS Statement are negative. Past Medical History Past Medical History: Atrial Fibrillation, Coronary Artery Disease (CAD), Heart Failure, COPD, Deep Vein Thrombosis (DVT) Additional Past Medical History / Comment(s): Hypertension, dyslipidemia, irregular heartbeat, chronic hypoxic respiratory failure on 2 L nasal cannula, severe pulmonary hypertension, diverticulitis, uti couple weeks ago, raynauds History of Any Multi-Drug Resistant Organisms: None Reported Past Surgical History: Cholecystectomy, Coronary Bypass/CABG, Tonsillectomy Additional Past Surgical History / Comment(s): subdural hematoma 2003, CABG apx. 30 years ago, bladder sling apx 2004 Past Anesthesia/Blood Transfusion Reactions: No Reported Reaction Past Psychological History: No Psychological Hx Reported Smoking Status: Never smoker Past Alcohol Use History: Occasional Past Drug Use History: None Reported - Past Family History Father Family Medical History: Congestive Heart Failure (CHF), Hypertension Additional Family Medical History / Comment(s): aneurysm Mother Family Medical History: Hypertension General Exam Limitations: no limitations Course Vital Signs 06/25/20 06/25/20 06/25/20 15:00 16:41 18:39 Temperature 97.9 F Pulse Rate 60 64 60 Respiratory 17 17 16 Rate Blood Pressure 121/73 120/66 123/75 O2 Sat by Pulse 100 100 99 Oximetry Medical Decision Making - Lab Data Result diagrams: 06/25/20 15:40 06/25/20 15:40 Lab Results 06/25/20 06/25/20 06/25/20 Range/Units 15:40 15:40 15:40 WBC 4.6 (3.8-10.6) k/uL RBC 4.55 (3.80-5.40) m/uL Hgb 12.8 (11.4-16.0) gm/dL Hct 41.0 (34.0-46.0) % MCV 90.0 (80.0-100.0) fL MCH 28.2 (25.0-35.0) pg MCHC 31.3 (31.0-37.0) g/dL RDW 16.4 H (11.5-15.5) % Plt Count 174 (150-450) k/uL Neutrophils % 61 % Lymphocytes % 23 % Monocytes % 12 % Eosinophils % 2 % Basophils % 1 % Neutrophils # 2.8 (1.3-7.7) k/uL Lymphocytes # 1.1 (1.0-4.8) k/uL Monocytes # 0.5 (0-1.0) k/uL Eosinophils # 0.1 (0-0.7) k/uL Basophils # 0.0 (0-0.2) k/uL Hypochromasia Slight Anisocytosis Slight PT 11.9 (9.0-12.0) sec INR 1.2 H (<1.2) APTT 23.2 (22.0-30.0) sec Sodium 129 L (137-145) mmol/L Potassium 4.1 (3.5-5.1) mmol/L Chloride 96 L (98-107) mmol/L Carbon Dioxide 23 (22-30) mmol/L Anion Gap 10 mmol/L BUN 43 H (7-17) mg/dL Creatinine 1.47 H (0.52-1.04) mg/dL Est GFR (CKD-EPI)AfAm 37 (>60 ml/min/1.73 sqM) Est GFR (CKD-EPI)NonAf 32 (>60 ml/min/1.73 sqM) Glucose 97 (74-99) mg/dL Plasma Lactic Acid Renard (0.7-2.0) mmol/L Calcium 9.9 (8.4-10.2) mg/dL Magnesium 2.1 (1.6-2.3) mg/dL Total Bilirubin 2.4 H (0.2-1.3) mg/dL AST 44 H (14-36) U/L ALT 23 (4-34) U/L Alkaline Phosphatase 132 H (38-126) U/L Troponin I (0.000-0.034) ng/mL Total Protein 7.3 (6.3-8.2) g/dL Albumin 4.2 (3.5-5.0) g/dL 06/25/20 06/25/20 Range/Units 15:40 15:40 WBC (3.8-10.6) k/uL RBC (3.80-5.40) m/uL Hgb (11.4-16.0) gm/dL Hct (34.0-46.0) % MCV (80.0-100.0) fL MCH (25.0-35.0) pg MCHC (31.0-37.0) g/dL RDW (11.5-15.5) % Plt Count (150-450) k/uL Neutrophils % % Lymphocytes % % Monocytes % % Eosinophils % % Basophils % % Neutrophils # (1.3-7.7) k/uL Lymphocytes # (1.0-4.8) k/uL Monocytes # (0-1.0) k/uL Eosinophils # (0-0.7) k/uL Basophils # (0-0.2) k/uL Hypochromasia Anisocytosis PT (9.0-12.0) sec INR (<1.2) APTT (22.0-30.0) sec Sodium (137-145) mmol/L Potassium (3.5-5.1) mmol/L Chloride (98-107) mmol/L Carbon Dioxide (22-30) mmol/L Anion Gap mmol/L BUN (7-17) mg/dL Creatinine (0.52-1.04) mg/dL Est GFR (CKD-EPI)AfAm (>60 ml/min/1.73 sqM) Est GFR (CKD-EPI)NonAf (>60 ml/min/1.73 sqM) Glucose (74-99) mg/dL Plasma Lactic Acid Renard 1.4 (0.7-2.0) mmol/L Calcium (8.4-10.2) mg/dL Magnesium (1.6-2.3) mg/dL Total Bilirubin (0.2-1.3) mg/dL AST (14-36) U/L ALT (4-34) U/L Alkaline Phosphatase (38-126) U/L Troponin I 0.023 (0.000-0.034) ng/mL Total Protein (6.3-8.2) g/dL Albumin (3.5-5.0) g/dL Disposition Clinical Impression: Axillary artery thrombosis Disposition: ADMITTED IP TO THIS [facility] Condition: Critical Decision Time: 19:07
[2020-06-25 16:14] LABS: Albumin 4.2 g/dL (3.5-5.0); Calcium 9.9 mg/dL (8.4-10.2); Magnesium 2.1 mg/dL (1.6-2.3); Potassium 4.1 mmol/L (3.5-5.1); Total Bilirubin 2.4 mg/dL (0.2-1.3); Total Protein 7.3 g/dL (6.3-8.2)
[2020-06-25 16:25] LABS: Anisocytosis Slight; Basophils % (A) 1 %; Eosinophils # (A) 0.1 k/uL (0-0.7); Eosinophils % (A) 2 %; HGB 12.8 gm/dL (11.4-16.0); Hypochromasia Slight; Lymphocytes # (A) 1.1 k/uL (1.0-4.8); Lymphocytes % (A) 23 %; MCH 28.2 pg (25.0-35.0); MCHC 31.3 g/dL (31.0-37.0); Mean Platelet Volume 8.5; Monocytes # (A) 0.5 k/uL (0-1.0); Monocytes % (A) 12 %; Neutrophils # (A) 2.8 k/uL (1.3-7.7); Neutrophils % (A) 61 %; Platelet Count 174 k/uL (150-450); RBC 4.55 m/uL (3.80-5.40); RDW 16.4 % (11.5-15.5); WBC 4.6 k/uL (3.8-10.6)
--- NOTE | 2020-06-25 16:26 | XR ---
EXAMINATION TYPE: XR chest 1V portable DATE OF EXAM: 06/25/2020 CLINICAL HISTORY: right hand numbness. TECHNIQUE: Portable frontal view of the chest. COMPARISON: 01/21/2020 chest radiograph. FINDINGS: Sternotomy wires. Redemonstrated cardiomegaly. Mediastinal silhouette normal. Pulmonary va sculature is normal. Redemonstrated interstitial coarsening and fibrotic changes of the bilateral ghanshyam g bases. No pleural effusion. No pneumothorax. No evidence of displaced osseous fracture. IMPRESSION: Cardiomegaly and interstitial lung disease changes. No acute cardiopulmonary process.
[2020-06-25 16:35] LABS: INR 1.2 (<1.2); Partial Thromboplastin Time 23.2 sec (22.0-30.0); Prothrombin Time 11.9 sec (9.0-12.0)
[2020-06-25] MEDS ORDERED: SODIUM CHLORIDE 0.9% 1,000 ML IV STA (16:39)
--- NOTE | 2020-06-25 18:05 | CT ---
EXAMINATION TYPE: CT angio chest DATE OF EXAM: 06/25/2020 COMPARISON: None HISTORY: Absent right radial pulse, right hand numbness. CT DLP: 615.8 mGycm Automated exposure control for dose reduction was used. CONTRAST: Performed with IV Contrast, patient injected with 80 mL of Isovue 370. Images were obtained from the thoracic inlet to the diaphragm with IV contrast and 3-D post processed images. There is some pleural thickening and infiltrate at the lung bases. Heart is moderately enlarged. Ther e is no pericardial effusion. There is no pleural effusion. There is some fluid around the liver and spleen. There is increased density in the lumen of the left lower lobe pulmonary artery in the posterior basa l segment branch that appears adherent to the wall on the left lateral aspect. This is consistent wit h a chronic thrombus. I see no other filling defects. Thoracic aorta is intact. There is no aneurysm or dissection. There are a few bronchial and mediastinal lymph nodes that measure up to 1.5 cm. There is arterial flow in both subclavian arteries. There is normal branching pattern of the great vessels on the aortic arch. There is bilateral arterial flow in the proximal vertebral arteries and the prox imal common carotid arteries. The bony thorax is intact. There is no compression fracture. There are sternal wires. IMPRESSION: Moderately severe cardiomegaly. Basilar pulmonary infiltrates and pleural thickening. There is probab ly pulmonary interstitial fibrosis. Bilateral subdiaphragmatic fluid could be ascites. Filling defect in the left lower lobe pulmonary artery consistent with chronic pulmonary embolism.
--- NOTE | 2020-06-25 18:14 | CT ---
EXAMINATION TYPE: CT angio upper extremity RT DATE OF EXAM: 06/25/2020 COMPARISON: None HISTORY: Absent right radial pulse, right hand numbness. CT DLP: mGycm Automated exposure control for dose reduction was used. CONTRAST: Performed with IV Contrast, patient injected with mL of Isovue 370. Images were obtained from the level of the base of the neck to the tips of the fingers with IV contra st. There are 3-D post processed images. FINDINGS: There is normal branching pattern of the great vessels on the aortic arch. There is arterial flow in the right subclavian artery. There is complete occlusion of the origin of the axillary artery at the level of the glenoid. There is filling defect in the axillary artery. There are small branches of the subclavian artery that appear to be collateral flow that reconstitutes the brachial artery. There is brachial artery flow down to the elbow. There is insufficient contrast in the forearm to evaluate fl ow in the radial and ulnar arteries.
[2020-06-25] MEDS ORDERED: NALOXONE 0.4 MG/ML 1 ML VIAL IV PRN (18:26)
[2020-06-25] MEDS ORDERED: HEPARIN SODIUM,PORCINE 5,000 UNIT/ML 1 ML VIAL IV ONE (18:29)
[2020-06-25] MEDS ORDERED: HEPARIN SODIUM,PORCINE 5,000 UNIT/ML 1 ML VIAL IV PRN (18:29)
[2020-06-25] MEDS ORDERED: HEPARIN SOD,PORK IN 0.45% NACL 25,000 UNIT in 0.45% NACL 1 250ML.BAG IV SCH (18:30)
[2020-06-25] MEDS: SODIUM CHLORIDE 0.9% 1,000 ML IV SCH (18:55)
--- NOTE | 2020-06-25 19:35 | P.GSCN ---
History of Present Illness Consult date: 06/25/20 History of present illness: The patient is a an 84-year-old female with COPD on home O2, atrial fibrillation and hypertension who initially presented to the ER with issues of right upper extremity numbness, weakness and pain. She states this happened about 2 hours prior to presentation the ER, at my time of consultation this is a proximally 5 hours ago. She has never had pain like this in the past. She states it is somewhat better since being here in the ER. Upon initial workup and evaluation she was found to not have a radial pulse and therefore a CTA of her right upper extremity was performed revealing acute occlusion of the axillary artery with reconstitution of the brachial artery. She denies any issues with strokes in the past or issues with embolic events such as this in the past. She does state that occasionally she has pain in her bilateral lower extremities, on her left worse than her right. This has been going on for many weeks if not months. She denies any fevers, chills, nausea, vomiting or issues otherwise. She still able to move her right upper extremity Review of Systems 14 point review systems performed. Pertinent positives and negatives per the HPI Past Medical History Past Medical History: Atrial Fibrillation, Coronary Artery Disease (CAD), Heart Failure, COPD, Deep Vein Thrombosis (DVT) Additional Past Medical History / Comment(s): Hypertension, dyslipidemia, irregular heartbeat, chronic hypoxic respiratory failure on 2 L nasal cannula, severe pulmonary hypertension, diverticulitis, uti couple weeks ago, raynauds History of Any Multi-Drug Resistant Organisms: None Reported Past Surgical History: Cholecystectomy, Coronary Bypass/CABG, Tonsillectomy Additional Past Surgical History / Comment(s): subdural hematoma 2003, CABG apx. 30 years ago, bladder sling apx 2004 Past Anesthesia/Blood Transfusion Reactions: No Reported Reaction Past Psychological History: No Psychological Hx Reported Smoking Status: Never smoker Past Alcohol Use History: Occasional Past Drug Use History: None Reported - Past Family History Father Family Medical History: Congestive Heart Failure (CHF), Hypertension Additional Family Medical History / Comment(s): aneurysm Mother Family Medical History: Hypertension Medications and Allergies Home Medications Medication Instructions Recorded Confirmed Type atenoloL [Tenormin] 50 mg PO DAILY 12/30/14 06/25/20 History lisinopriL [Zestril] 5 mg PO DAILY #30 tab 04/02/19 06/25/20 Rx Albuterol Nebulized [Ventolin 2.5 mg INHALATION RT-BID PRN 08/10/19 06/25/20 History Nebulized] Apixaban [Eliquis] 2.5 mg PO BID 08/10/19 06/25/20 History Tiotropium 18 Mcg/Puff [Spiriva] 1 puff INHALATION RT-DAILY 08/10/19 06/25/20 History Budesonide-Formot 160-4.5 Mcg 2 puff INHALATION RT-BID 06/01/20 06/25/20 History [Symbicort 160-4.5 Mcg Inhaler] ALPRAZolam [Xanax] 0.25 mg PO BID PRN 06/25/20 06/25/20 History Furosemide [Lasix] 40 mg PO DAILY 06/25/20 06/25/20 History Spironolactone 25 mg PO DAILY 06/25/20 06/25/20 History Allergies Allergy/AdvReac Type Severity Reaction Status Date / Time Sulfa (Sulfonamide Allergy Rash/Hives Verified 06/25/20 19:18 Antibiotics) sulfamethoxazole Allergy Rash/Hives Verified 06/25/20 19:18 [From Bactrim] Surgical - Exam Vital Signs Temp Pulse Resp BP Pulse Ox 97.9 F 60 17 121/73 100 06/25/20 15:00 06/25/20 15:00 06/25/20 15:00 06/25/20 15:00 06/25/20 15:00 Gen. is a pleasant cooperative thin elderly female in no acute distress. HEENT is normocephalic, atraumatic, extraocular motion intact. Neck is supple, trachea is midline. Heart is irregularly irregular. Lungs are clear but decreased bilaterally. Abdomen is soft, flat, nontender nondistended. Extremity show no clubbing or cyanosis. There is mild bilateral lower extremity edema with varicose veins. She has a palpable left radial pulse. There is no palpable right radial pulse. She has palpable femoral pulses bilaterally. No palpable pedal pulses. She remains motor sensory intact of her bilateral lower extremities with equal motor and strength bilaterally. The right upper extremi ty has decreased sensation as compared to the left and slightly decreased in strength. She is still able to move her upper extremity without pain. Normal mood and affect. Cranial nerves II through XII grossly intact Results CT angiogram of the chest is reviewed. Chronic pulmonary embolism noted. CT and exam of the right upper extremity reviewed. There is acute occlusion at the level of the axillary artery. There is reconstitution at the brachial. - Labs 06/25/20 15:40 06/25/20 15:40 Abnormal Lab Results - Last 24 Hours (Table) 06/25/20 06/25/20 06/25/20 Range/Units 15:40 15:40 15:40 RDW 16.4 H (11.5-15.5) % INR 1.2 H (<1.2) Sodium 129 L (137-145) mmol/L Chloride 96 L (98-107) mmol/L BUN 43 H (7-17) mg/dL Creatinine 1.47 H (0.52-1.04) mg/dL Total Bilirubin 2.4 H (0.2-1.3) mg/dL AST 44 H (14-36) U/L Alkaline Phosphatase 132 H (38-126) U/L Diabetes panel 06/25/20 Range/Units 15:40 Sodium 129 L (137-145) mmol/L Potassium 4.1 (3.5-5.1) mmol/L Chloride 96 L (98-107) mmol/L Carbon Dioxide 23 (22-30) mmol/L BUN 43 H (7-17) mg/dL Creatinine 1.47 H (0.52-1.04) mg/dL Glucose 97 (74-99) mg/dL Calcium 9.9 (8.4-10.2) mg/dL AST 44 H (14-36) U/L ALT 23 (4-34) U/L Alkaline Phosphatase 132 H (38-126) U/L Total Protein 7.3 (6.3-8.2) g/dL Albumin 4.2 (3.5-5.0) g/dL Calcium panel 06/25/20 Range/Units 15:40 Calcium 9.9 (8.4-10.2) mg/dL Albumin 4.2 (3.5-5.0) g/dL Pituitary panel 06/25/20 Range/Units 15:40 Sodium 129 L (137-145) mmol/L Potassium 4.1 (3.5-5.1) mmol/L Chloride 96 L (98-107) mmol/L Carbon Dioxide 23 (22-30) mmol/L BUN 43 H (7-17) mg/dL Creatinine 1.47 H (0.52-1.04) mg/dL Glucose 97 (74-99) mg/dL Calcium 9.9 (8.4-10.2) mg/dL Adrenal panel 06/25/20 Range/Units 15:40 Sodium 129 L (137-145) mmol/L Potassium 4.1 (3.5-5.1) mmol/L Chloride 96 L (98-107) mmol/L Carbon Dioxide 23 (22-30) mmol/L BUN 43 H (7-17) mg/dL Creatinine 1.47 H (0.52-1.04) mg/dL Glucose 97 (74-99) mg/dL Calcium 9.9 (8.4-10.2) mg/dL Total Bilirubin 2.4 H (0.2-1.3) mg/dL AST 44 H (14-36) U/L ALT 23 (4-34) U/L Alkaline Phosphatase 132 H (38-126) U/L Total Protein 7.3 (6.3-8.2) g/dL Albumin 4.2 (3.5-5.0) g/dL Assessment and Plan Assessment: #1 acute limb ischemia right upper extremity #2 right axillary artery occlusion #3 atrial fibrillation, on Eliquis 2.5mg BID #4 hypertension #5 COPD on home oxygen #6 bilateral lower extremity swelling Plan: After all imaging and clinical evaluation is performed, I agree the patient does have a significant acute occlusion of the right upper extremity, with collateralization she does maintain some perfusion to the upper extremity but there is no evident pulse. Long discussion was had with the patient and her daughter regarding the plan going forward. I do recommend undergoing an open thrombectomy of her right upper extremity. Subsequently we will have to evaluate the origin of the embolic occlusion, it is likely from her arrhythmia. CT angiogram of the chest and arm otherwise revealed no significant atherosclerotic disease of note. Risks and benefits of going forward with the procedure as well as no intervention were discussed. They seemingly understand and are willing to proceed with the intervention. At this time she remains full code. She will be fully heparinized after the procedure
[2020-06-25] MEDS ORDERED: PROPOFOL 10 MG/ML 20 ML VIAL IV ONE (19:38)
[2020-06-25] MEDS ORDERED: PHENYLEPHRINE-0.9% NACL SYG 1 MG/10 ML SYRINGE ONE (19:38)
[2020-06-25] MEDS ORDERED: SUCCINYLCHOLINE CHLORIDE 100 MG/5 ML SYR IV ONE (19:38)
[2020-06-25] MEDS ORDERED: HEPARIN SODIUM,PORCINE 5,000 UNIT/ML 1 ML VIAL ONE (19:38)
[2020-06-25] MEDS ORDERED: LIDOCAINE 1% INJ 10MG/ML (20 ML MDV) ONE (19:38)
[2020-06-25] MEDS ORDERED: fentaNYL (PF) 50 MCG/ML 2 ML AMP ONE (19:38)
[2020-06-25] MEDS ORDERED: SODIUM CHLORIDE 0.9% 50 ML with ceFAZolin 2,000 MG IV ONE ×2 (19:38)
[2020-06-25] MEDS ORDERED: IV FLUID CONTINUATION 1,000 ML IV ONE (19:38)
[2020-06-25] MEDS ORDERED: LIDOCAINE 2% (PF) 20 MG/ML 10 ML AMP SQ ONE (20:08)
[2020-06-25] MEDS ORDERED: HEPARIN SODIUM,PORCINE 2,000 UNIT in SODIUM CHLORIDE 0.9% 500 ML 500 ML IRRIGATION ONE (20:09)
[2020-06-25] MEDS ORDERED: ACETAMINOPHEN TAB 325 MG TAB PO PRN (20:46)
--- NOTE | 2020-06-25 20:46 | P.OP ---
Date of Procedure: 06/25/20 Description of Procedure: Preoperative diagnosis: Acute right upper extremity ischemia, right axillary occlusion, atrial fibrillation Postoperative diagnosis: Same Procedure: [Open right upper extremity thrombectomy of the axillary and brachial artery] Surgeon: Renata Chamberlain D.O. EBL: [20 mL] IV fluids: [See records] Urine output: [Not measured] Drains: [None] Complications: [None immediately apparent] Condition: [Stable to recovery] Operative indication and findings: [The patient is an [age] female with a previous history of atrial fibrillation on low-dose anticoagulation she present to the ER with increasing right upper extremity pain, weakness and numbness. She was found to have an occlusion of the right axillary artery which appeared acute in nature. It was recommended she undergo an open thrombectomy. Risks and benefits were discussed including but not limited to bleeding, infection, injury to the artery or nerve and those associated with anesthesia such as respiratory difficulties or an PA, she seemingly understands and is willing to proceed as such] Procedure in detail: [The patient was taken to the operative suite and placed in supine position. The right upper extremity was prepped and draped in usual sterile fashion. A preprocedure timeout was performed, all parties are in agreement. Transverse incision was made just proximally to the antecubital fossa and carried down through the fascia to the level of brachial artery. Brachial artery was dissected free circumferentially and proximal and distal control was obtained. The patient was heparinized. Flow was occluded. A transverse arteriotomy was performed and a 3 Marina was passed multiple times in the proximal direction until there was no further thrombus noted. There was good pulsatile flow after the final pass. There was adequate backbleeding. The arteriotomy was reapproximated with interrupted sutures of 6-0 Prolene. Hemostasis was adequate. After the closure, there was a palpable radial and ulnar pulse. This was confirmed with multiphasic signals proximally and distally to the arteriotomy as well as at the level of the wrist. There is adequate capillary refill. That point the wound was irrigated. The subcutaneous tissues were reapproximated with interrupted sutures of 3-0 Vicryl. The skin was reapproximated with running 4-0 Monocryl. Skin glue and a slight pressure dressing were placed.The patient was allowed awaken from anesthesia and transferred to recovery in stable condition having tolerated the procedure well.]
[2020-06-26] MEDS ORDERED: ALBUTEROL NEBULIZED 2.5 MG/3 ML INHALATION PRN (03:38)
[2020-06-26] MEDS ORDERED: ALPRAZolam 0.25 MG TAB PO PRN (03:38)
--- NOTE | 2020-06-26 03:41 | P.HPIM ---
History of Present Illness H&P Date: 06/26/20 The patient was seen at the bedside on 06/26 @ 12 am Patient is an 84-year-old female with a PMH of ANatty celeste on Eliquis, hypertension, diastolic CHF, COPD with chronic hypoxic respiratory failure on 2 L of nasal cannula oxygen at home had presented to the emergency room with complaints of a sudden onset of right arm pain and numbness. Patient reports that her symptoms started roughly an hour or two prior to presentation. She reports that her pain started suddenly with associated weakness and numbness of the right hand. She notes that she has had never had such pain in the past. An upper extremity CTA in the emergency room revealed occlusion at the level of the axillary artery. Vascular surgery was consulted and the patient was subsequently taken to the OR for a right upper extremity thrombectomy of the axillary and brachial arteries. The procedure was completed uneventfully and the patient was seen postoperatively. She reported that her pain had essentially resolved and that she was also regaining strength and feeling in the arm and hand. The patient also reports that over the past few weeks she has noticed that her legs have been getting increasingly swollen. She denied leg pain however and also denied orthopnea. She denied any additional complaints. She denied chest pain, shortness of breath, fever, chills, nausea, vomiting, abdominal pain. Review of Systems Pertinent positives and negatives as discussed in HPI, a complete review of sys tems was performed and all other systems are negative. Past Medical History Past Medical History: Atrial Fibrillation, Coronary Artery Disease (CAD), Heart Failure, COPD, Deep Vein Thrombosis (DVT) Additional Past Medical History / Comment(s): Hypertension, dyslipidemia, irregular heartbeat, chronic hypoxic respiratory failure on 2 L nasal cannula, severe pulmonary hypertension, diverticulitis, uti couple weeks ago, raynauds History of Any Multi-Drug Resistant Organisms: None Reported Past Surgical History: Cholecystectomy, Coronary Bypass/CABG, Tonsillectomy Additional Past Surgical History / Comment(s): subdural hematoma 2003, CABG apx. 30 years ago, bladder sling apx 2004 Past Anesthesia/Blood Transfusion Reactions: No Reported Reaction Past Psychological History: No Psychological Hx Reported Smoking Status: Former smoker Past Alcohol Use History: Occasional Past Drug Use History: None Reported - Past Family History Father Family Medical History: Congestive Heart Failure (CHF), Hypertension Additional Family Medical History / Comment(s): aneurysm Mother Family Medical History: Hypertension Medications and Allergies Home Medications Medication Instructions Recorded Confirmed Type atenoloL [Tenormin] 50 mg PO DAILY 12/30/14 06/25/20 History lisinopriL [Zestril] 5 mg PO DAILY #30 tab 04/02/19 06/25/20 Rx Albuterol Nebulized [Ventolin 2.5 mg INHALATION RT-BID PRN 08/10/19 06/25/20 History Nebulized] Apixaban [Eliquis] 2.5 mg PO BID 08/10/19 06/25/20 History Tiotropium 18 Mcg/Puff [Spiriva] 1 puff INHALATION RT-DAILY 08/10/19 06/25/20 History Budesonide-Formot 160-4.5 Mcg 2 puff INHALATION RT-BID 06/01/20 06/25/20 History [Symbicort 160-4.5 Mcg Inhaler] ALPRAZolam [Xanax] 0.25 mg PO BID PRN 06/25/20 06/25/20 History Furosemide [Lasix] 40 mg PO DAILY 06/25/20 06/25/20 History Spironolactone 25 mg PO DAILY 06/25/20 06/25/20 History Allergies Allergy/AdvReac Type Severity Reaction Status Date / Time Sulfa (Sulfonamide Allergy Rash/Hives Verified 06/25/20 19:18 Antibiotics) sulfamethoxazole Allergy Rash/Hives Verified 06/25/20 19:18 [From Bactrim] Physical Exam Vitals: Vital Signs Temp Pulse Pulse Resp BP BP Pulse Ox 06/25/20 21:17 57 L 16 125/69 100 06/25/20 21:02 53 L 18 131/75 100 06/25/20 20:47 98 F 60 16 128/66 98 06/25/20 18:39 60 16 123/75 99 06/25/20 16:41 64 17 120/66 100 06/25/20 15:00 97.9 F 60 17 121/73 100 Intake and Output 06/25/20 06/25/20 06/26/20 14:59 22:59 06:59 Intake Total 900 45.128 Output Total 20 Balance 880 45.128 Intake: IV 500 Intake, IV Titration 45.128 Amount Heparin Sod,Pork in 0.45% 45.128 NaCl 25,000 unit In 0.45 % NaCl 1 250ml.bag @ 12 UNITS/KG/HR 5.606 mls/hr IV .Q[facility]H [facility] Rx#: [id number] Oral 400 Output: Estimated Blood Loss 20 Other: Voiding Method Bedpan Weight 46.72 kg General: Elderly lady, non toxic, no distress, appears at stated age, normal weight Derm: no unusual rashes/lesions no unusual ecchymoses, warm, dry Head: atraumatic, normocephalic, symmetric Eyes: EOMI, no lid lag, anicteric sclera, pupils equal round reactive to light ENT: Nose and ears atraumatic, no thrush, no pharyngeal erythema Neck: No thyromegaly, no cervical lymphadenopathy, trachea midline, supple Mouth: no lip lesion, mucus membranes moist Cardiovascular: S1S2 reg, no murmur, positive posterior tibial pulse bilateral, 2+ bilateral lower extremity pitting edema, capillary refill less than 2 seconds, 3+ R sided radial pulse noted w/ warm overlying skin and normal light touch sensation Lungs: CTA bilateral, no rhonchi, no rales , no accessory muscle use Abdominal: soft, nontender to palpation, no guarding, no appreciable organomegaly, normal bowel sounds Ext: no gross muscle atrophy, strength 5/5 throughout, no contractures, Neuro: CN II-XI grossly intact, light touch intact all 4 extremities, finger to nose within normal limits, Psych: Alert, oriented, appropriate affect Results CBC & Chem 7: 06/25/20 15:40 06/25/20 15:40 Labs: Abnormal Lab Results - Last 24 Hours (Table) 06/25/20 06/25/20 06/25/20 Range/Units 15:40 15:40 15:40 RDW 16.4 H (11.5-15.5) % INR 1.2 H (<1.2) APTT (22.0-30.0) sec Sodium 129 L (137-145) mmol/L Chloride 96 L (98-107) mmol/L BUN 43 H (7-17) mg/dL Creatinine 1.47 H (0.52-1.04) mg/dL Total Bilirubin 2.4 H (0.2-1.3) mg/dL AST 44 H (14-36) U/L Alkaline Phosphatase 132 H (38-126) U/L 06/26/20 Range/Units 02:05 RDW (11.5-15.5) % INR (<1.2) APTT >200.0 H* (22.0-30.0) sec Sodium (137-145) mmol/L Chloride (98-107) mmol/L BUN (7-17) mg/dL Creatinine (0.52-1.04) mg/dL Total Bilirubin (0.2-1.3) mg/dL AST (14-36) U/L Alkaline Phosphatase (38-126) U/L Assessment and Plan Plan: Acute right-sided axillary and brachial artery occlusion with limb ischemia -Status post thrombectomy with good result -Patient had reported compliance with her Eliquis at home, likely failure of the rapy -Continue with Heparin for now with consideration of lovenox injections at home Persistent A. fib, on Eliquis -Suspected failure of therapy with reported good compliance -As per above -Cardiology consulted Hyponatremia -Likely secondary to ongoing acute stressor -Monitor for now ANDRE on chronic kidney disease -Monitor for now Bilateral lower extremity pitting edema -Likely secondary to chronic diastolic CHF -Continue with 40 mg Lasix by mouth twice a day for now and consider increasing the home dose on discharge DVT prophylaxis -Heparin infusion The patient is admitted with an anticipated greater than 2 midnight stay for evaluation of acute occlusion of RUE CODE STATUS: Full Code Discussed with: Patient Anticipated discharge date: 2-[address]: Home A total of 45 minutes was spent on the care of this complex patient more than 50% of the time was spent in counseling and care coordination.
[2020-06-26] MEDS ORDERED: BENZOCAINE/MENTHOL LOZENG 1 EACH LOZENGE MUCOUS MEM PRN (04:00)
[2020-06-26] MEDS ORDERED: TIOTROPIUM 18 MCG/PUFF INHALER INHALATION SCH (08:00)
[2020-06-26] MEDS: IPRATROPIUM 0.5 MG/2.5 ML NEBU INHALATION SCH ×4 (08:57→19:52)
[2020-06-26] MEDS: FUROSEMIDE 40 MG TAB PO SCH ×2 (09:08→17:09)
[2020-06-26] MEDS: atenoloL 50 MG TAB PO SCH (09:09)
[2020-06-26] MEDS: APIXABAN 2.5 MG TABLET PO SCH ×2 (10:07→21:25)
[2020-06-26] MEDS: SPIRONOLACTONE 25 MG TAB PO SCH (10:07)
[2020-06-26 11:11] LABS: Anisocytosis Slight; HCT 40.6 % (34.0-46.0); HGB 12.2 gm/dL (11.4-16.0); Hypochromasia Moderate; MCH 27.7 pg (25.0-35.0); MCV 92.2 fL (80.0-100.0); Mean Platelet Volume 8.6; Platelet Count 158 k/uL (150-450); RDW 16.7 % (11.5-15.5); WBC 4.9 k/uL (3.8-10.6)
[2020-06-26 11:22] LABS: Albumin 3.5 g/dL (3.5-5.0); Potassium 4.4 mmol/L (3.5-5.1); Total Bilirubin 2.1 mg/dL (0.2-1.3)
--- NOTE | 2020-06-26 11:51 | P.CRDCN ---
History of Present Illness History of present illness: HISTORY OF PRESENTING ILLNESS This is a pleasant 84-year-old female past medical history significant for chronic persistent atrial fibrillation on long-term anticoagulation, noe ry artery disease status post bypass grafting in 1980, chronic diastolic heart failure and hypertension. She follows in the office with Dr. Garcia. We have been asked to see in consultation for cardiac history and recent diagnosis of right axillary thrombosis. She presented to the hospital with symptoms of right arm pain and numbness. She was diagnosed with acute right upper extremity limb ischemia secondary to right axillary artery occlusion. She underwent open right upper extremity thrombectomy of the axillary and brachial artery yesterday with Dr. Chamberlain. She is seen and examined resting comfortably laying flat in bed in no acute distress. She complains of no significant shortness of breath, chest pain, dizziness or palpitations. She states she has compliant with her Eliquis. DIAGNOSTICS EKG reveals atrial fibrillation, mild ST depression noted in the anterolateral leads. Consistent with previous EKGs, no acute changes noted. Chest xray reveals interstitial lung disease changes. Laboratory reviewed, CBC unremarkable, sodium 132, potassium 4.4, creatinine 1.23, troponin negative 1 and magnesium 2.1. Current cardiac medications include lisinopril 5 mg daily, atenolol 50 mg daily, Aldactone 25 mg daily, Lasix 40 mg daily and Eliquis 2.5 mg twice a day. REVIEW OF SYSTEMS At the time of my exam: CONSTITUTIONAL: Denies fever or chills. CARDIOVASCULAR: Denies chest pain, shortness of breath, orthopnea, PND or palpitations. RESPIRATORY: Denies cough. GASTROINTESTINAL: Denies abdominal pain, diarrhea, constipation, nausea or vomiting. MUSCULOSKELETAL: Denies myalgias. NEUROLOGIC: Denies numbness, tingling or weakness. ENDOCRINE: Denies fatigue, weight change, polydipsia or polyurina. GENITOURINARY: Denies burning, hematuria or urgency with micturation. HEMATOLOGIC: Denies history of anemia or bleeding. PHYSICAL EXAMINATION Blood pressure 102/52 heart rate 68 afebrile and maintaining oxygen saturation on nasal cannula. CONSTITUTIONAL: No apparent distress. HEENT: Head is normocephalic. Pupils are equal, round. Sclerae anicteric. Mucous membranes of the mouth are moist. No JVD. No carotid bruit. CHEST EXAMINATION: Lungs are clear to auscultation. No chest wall tenderness is noted on palpation or with deep breathing. HEART EXAMINATION: Irregular rate and rhythm. S1, S2 and S3 gallop auscultated in the epigastric region suggestive of origin at the right ventricle. ABDOMEN: Soft, nontender. Positive bowel sounds. EXTREMITIES: 2+ peripheral pulses, 1+ bilateral lower extremity edema and no calf tenderness. NEUROLOGIC EXAMINATION: Patient is awake, alert and oriented x3. ASSESSMENT Acute right axillary thrombosis status post thrombectomy Chronic persistent atrial fibrillation on long-term anticoagulation Coronary artery disease status post bypass grafting Chronic diastolic heart failure Hypertension Pulmonary hypertension PLAN She is appropriately anticoagulated with Eliquis 2.5 mg twice a day given her age, weight and renal function. The patient states she is compliant with her anticoagulation and does not miss her dosing. Discussion regarding possible LYLY to assess her LV thrombus however this would not change her treatment regimen. We will resume her Eliquis today and add aspirin 81 mg daily. Further discussion regarding the possibility of watchman device to be placed take place as an outpatient in the office with Dr. Garcia. Thank you kindly for this consultation. Nurse Practitioner note has been reviewed, I agree with a documented findings and plan of care. Patient was seen and examined. Past Medical History Past Medical History: Atrial Fibrillation, Coronary Artery Disease (CAD), Heart Failure, COPD, Deep Vein Thrombosis (DVT) Additional Past Medical History / Comment(s): Hypertension, dyslipidemia, irregular heartbeat, chronic hypoxic respiratory failure on 2 L nasal cannula, severe pulmonary hypertension, diverticulitis, uti couple weeks ago, raynauds History of Any Multi-Drug Resistant Organisms: None Reported Past Surgical History: Cholecystectomy, Coronary Bypass/CABG, Tonsillectomy Additional Past Surgical History / Comment(s): subdural hematoma 2003, CABG apx. 30 years ago, bladder sling apx 2004 Past Anesthesia/Blood Transfusion Reactions: No Reported Reaction Past Psychological History: No Psychological Hx Reported Smoking Status: Former smoker Past Alcohol Use History: Occasional Past Drug Use History: None Reported - Past Family History Father Family Medical History: Congestive Heart Failure (CHF), Hypertension Additional Family Medical History / Comment(s): aneurysm Mother Family Medical History: Hypertension Medications and Allergies Home Medications Medication Instructions Recorded Confirmed Type atenoloL [Tenormin] 50 mg PO DAILY 12/30/14 06/25/20 History lisinopriL [Zestril] 5 mg PO DAILY #30 tab 04/02/19 06/25/20 Rx Albuterol Nebulized [Ventolin 2.5 mg INHALATION RT-BID PRN 08/10/19 06/25/20 History Nebulized] Apixaban [Eliquis] 2.5 mg PO BID 08/10/19 06/25/20 History Tiotropium 18 Mcg/Puff [Spiriva] 1 puff INHALATION RT-DAILY 08/10/19 06/25/20 History Budesonide-Formot 160-4.5 Mcg 2 puff INHALATION RT-BID 06/01/20 06/25/20 History [Symbicort 160-4.5 Mcg Inhaler] ALPRAZolam [Xanax] 0.25 mg PO BID PRN 06/25/20 06/25/20 History Furosemide [Lasix] 40 mg PO DAILY 06/25/20 06/25/20 History Spironolactone 25 mg PO DAILY 06/25/20 06/25/20 History Allergies Allergy/AdvReac Type Severity Reaction Status Date / Time Sulfa (Sulfonamide Allergy Rash/Hives Verified 06/25/20 19:18 Antibiotics) sulfamethoxazole Allergy Rash/Hives Verified 06/25/20 19:18 [From Bactrim] Physical Exam Vitals: Vital Signs Temp Pulse Pulse Pulse Resp BP BP 06/26/20 09:10 68 06/26/20 08:58 68 06/26/20 08:12 97.8 F 82 16 102/52 06/26/20 08:00 82 16 06/26/20 04:00 98 F 65 18 99/50 06/26/20 00:00 98.2 F 65 18 101/60 06/25/20 21:30 97.6 F 69 18 125/76 06/25/20 21:17 57 L 16 125/69 06/25/20 21:02 53 L 18 131/75 06/25/20 20:47 98 F 60 16 128/66 06/25/20 18:39 60 16 123/75 06/25/20 16:41 64 17 120/66 06/25/20 15:00 97.9 F 60 17 121/73 Pulse Ox 06/26/20 09:10 06/26/20 08:58 06/26/20 08:12 95 06/26/20 08:00 06/26/20 04:00 98 06/26/20 00:00 96 06/25/20 21:30 97 06/25/20 21:17 100 06/25/20 21:02 100 06/25/20 20:47 98 06/25/20 18:39 99 06/25/20 16:41 100 06/25/20 15:00 100 Intake and Output 06/25/20 06/26/20 06/26/20 22:59 06:59 14:59 Intake Total 900 45.128 180 Output Total 20 Balance 880 45.128 180 Intake: IV 500 Intake, IV Titration 45.128 Amount Heparin Sod,Pork in 0.45% 45.128 NaCl 25,000 unit In 0.45 % NaCl 1 250ml.bag @ 12 UNITS/KG/HR 5.606 mls/hr IV .Q24H [facility] Rx#: [id number] Oral 400 180 Output: Estimated Blood Loss 20 Other: Voiding Method Bedpan Bedside Commode # Bowel Movements 1 Weight 46.72 kg 46.3 kg Results 06/26/20 10:46 06/26/20 10:46 Cardiac Enzymes 06/25/20 06/25/20 06/26/20 Range/Units 15:40 15:40 10:46 AST 44 H 31 (14-36) U/L Troponin I 0.023 (0.000-0.034) ng/mL Coagulation 06/25/20 06/26/20 Range/Units 15:40 02:05 PT 11.9 (9.0-12.0) sec APTT 23.2 >200.0 H* (22.0-30.0) sec CBC 06/25/20 06/26/20 Range/Units 15:40 10:46 WBC 4.6 4.9 (3.8-10.6) k/uL RBC 4.55 4.40 (3.80-5.40) m/uL Hgb 12.8 12.2 (11.4-16.0) gm/dL Hct 41.0 40.6 (34.0-46.0) % Plt Count 174 158 (150-450) k/uL Comprehensive Metabolic Panel 06/25/20 06/26/20 Range/Units 15:40 10:46 Sodium 129 L 132 L (137-145) mmol/L Potassium 4.1 4.4 (3.5-5.1) mmol/L Chloride 96 L 101 (98-107) mmol/L Carbon Dioxide 23 22 (22-30) mmol/L BUN 43 H 39 H (7-17) mg/dL Creatinine 1.47 H 1.23 H (0.52-1.04) mg/dL Glucose 97 87 (74-99) mg/dL Calcium 9.9 9.0 (8.4-10.2) mg/dL AST 44 H 31 (14-36) U/L ALT 23 17 (4-34) U/L Alkaline Phosphatase 132 H 98 (38-126) U/L Total Protein 7.3 6.0 L (6.3-8.2) g/dL Albumin 4.2 3.5 (3.5-5.0) g/dL Current Medications Generic Name Dose Route Start Last Admin Trade Name Freq PRN Reason Stop Dose Admin Acetaminophen 650 mg 06/25/20 20:46 Acetaminophen Tab 325 Mg Tab PO Q6HR PRN Mild Pain Albuterol Sulfate 2.5 mg 06/26/20 03:38 Albuterol Nebulized 2.5 Mg/3 Ml INHALATION RT-BID PRN Shortness Of Breath Alprazolam 0.25 mg 06/26/20 03:38 Alprazolam 0.25 Mg Tab PO BID PRN Anxiety Apixaban 2.5 mg 06/26/20 09:45 06/26/20 10:07 Apixaban 2.5 Mg Tablet PO 2.5 mg BID EVELYN Administration Aspirin 81 mg 06/27/20 09:45 Aspirin 81 Mg PO DAILY EVELYN Atenolol 50 mg 06/26/20 09:00 06/26/20 09:09 Atenolol 50 Mg Tab PO 50 mg DAILY EVELYN Administration Benzocaine/Menthol 1 each 06/26/20 04:00 Benzocaine/Menthol Lozeng 1 Each Lozenge MUCOUS MEM Q4HR PRN Sore Throat Budesonide/Formoterol Fumarate 2 puff 06/26/20 08:00 Symbicort 160-4.5 Mcg Inhaler INHALATION RT-BID EVELYN Furosemide 40 mg 06/26/20 09:00 06/26/20 09:08 Furosemide 40 Mg Tab PO 40 mg BID@0900,1600 EVELYN Administration Sodium Chloride 1,000 mls @ 60 mls/hr 06/25/20 18:30 06/25/20 18:55 Saline 0.9% IV 60 mls/hr .[id number] EV[facility]N Administration Ipratropium Sunflower 0.5 mg 06/26/20 08:00 06/26/20 08:57 Ipratropium 0.5 Mg/2.5 Ml Nebu INHALATION 0.5 mg RT-QID EVELYN Administration Naloxone HCl 0.2 mg 06/25/20 18:26 Naloxone 0.4 Mg/Ml 1 Ml Vial IV Q2M PRN Opioid Reversal Spironolactone 25 mg 06/26/20 09:45 06/26/20 10:07 Spironolactone 25 Mg Tab PO 25 mg DAILY EVELYN Administration Tiotropium Sunflower 1 puff 06/26/20 08:00 Tiotropium 18 Mcg/Puff Inhaler INHALATION RT-DAILY EVELYN Intake and Output 06/25/20 06/26/20 06/26/20 22:59 06:59 14:59 Intake Total 900 45.128 180 Output Total 20 Balance 880 45.128 180 Intake: IV 500 Intake, IV Titration 45.128 Amount Heparin Sod,Pork in 0.45% 45.128 NaCl 25,000 unit In 0.45 % NaCl 1 250ml.bag @ 12 UNITS/KG/HR 5.606 mls/hr IV .Q24H [facility] Rx#: [id number] Oral 400 180 Output: Estimated Blood Loss 20 Other: Voiding Method Bedpan Bedside Commode # Bowel Movements 1 Weight 46.72 kg 46.3 kg 06/26/20 10:46 06/26/20 10:46
[2020-06-26] MEDS: SYMBICORT 160-4.5 MCG INHALER INHALATION SCH ×2 (12:18→19:52)
--- NOTE | 2020-06-26 12:45 | P.PN ---
Subjective Progress Note Date: 06/26/20 Principal diagnosis: Right axillary occlusion, acute right upper extremity ischemia [id number] female with a past medical history of COPD on home oxygen, atrial fibrillation and hypertension who presented yesterday to the emergency department with pain in the right upper extremity with numbness and weakness. He was found to not have a radial pulse and a CTA of the right upper extremity was performed revealing an acute occlusion of the axillary artery with reconstitution of the brachial artery. She is status postop day 1 for a open right upper extremity thrombectomy of the axillary and brachial artery. She remains on a heparin drip at this time. She denies any pain other than palpation near the site. She is able to move bilateral upper extremities and fingers. She denies any fever acute changes through the night. Objective - Vital Signs Vital signs: Vital Signs Temp 97.8 F 06/26/20 08:12 Pulse 82 06/26/20 08:12 Resp 16 06/26/20 08:12 BP 102/52 06/26/20 08:12 Pulse Ox 95 06/26/20 08:12 Intake & Output 06/25/20 06/26/20 06/26/20 18:59 06:59 18:59 Intake Total 945.128 180 Output Total 20 Balance 925.128 180 Weight 46.72 kg 46.3 kg Intake: IV 500 Intake, IV Titration 45.128 Amount Heparin Sod,Pork in 0.45% 45.128 NaCl 25,000 unit In 0.45 % NaCl 1 250ml.bag @ 12 UNITS/KG/HR 5.606 mls/hr IV .Q24H [facility] Rx#: [id number] Oral 400 180 Output: Estimated Blood Loss 20 Other: Voiding Method Bedside Commode # Bowel Movements 1 - Exam General appearance: The patient is alert, oriented, in no acute distress. HET: Head is normocephalic and atraumatic. Neck: Supple without lymphadenopathy. Trachea midline. Heart: S1 S2. Regular rate and rhythm. Lungs: No crackles or wheezes are heard. Extremities: Bilateral palpable radial pulses 2/4. Right upper extremity including fingers with full range of motion. Incision site clean dry and intact with dressing with some surrounding ecchymosis. Neurological: No focal deficits. Strength and sensation are grossly intact. - Labs CBC & Chem 7: 06/26/20 10:46 06/26/20 10:46 Labs: Abnormal Lab Results - Last 24 Hours (Table) 06/25/20 06/25/20 06/25/20 Range/Units 15:40 15:40 15:40 RDW 16.4 H (11.5-15.5) % INR 1.2 H (<1.2) APTT (22.0-30.0) sec Sodium 129 L (137-145) mmol/L Chloride 96 L (98-107) mmol/L BUN 43 H (7-17) mg/dL Creatinine 1.47 H (0.52-1.04) mg/dL Total Bilirubin 2.4 H (0.2-1.3) mg/dL AST 44 H (14-36) U/L Alkaline Phosphatase 132 H (38-126) U/L 06/26/20 Range/Units 02:05 RDW (11.5-15.5) % INR (<1.2) APTT >200.0 H* (22.0-30.0) sec Sodium (137-145) mmol/L Chloride (98-107) mmol/L BUN (7-17) mg/dL Creatinine (0.52-1.04) mg/dL Total Bilirubin (0.2-1.3) mg/dL AST (14-36) U/L Alkaline Phosphatase (38-126) U/L Assessment and Plan Assessment: 1. Acute limb ischemia right upper extremity 2. Right axillary artery occlusion, status post op day 1 open right upper extremity thrombectomy of axillary and brachial artery 3. Atrial fibrillation, on Ahlquist 2.5 mg twice a day 4. Hypertension 3. COPD on home oxygen 6. Bilateral lower extremity swelling Plan: The patient is status postop day #1 for an open upper extremity thrombectomy of the axillary brachial artery Advance diet as tolerated Continue heparin therapy, may transition over based on recommendations from cardiology Appreciate recommendations from cardiology for further cardiac work up and anticoagulation therapy Recommend outpatient follow-up with her Chamberlain in one week The impression and plan of care has been dictated as directed. Dr. Valero I performed a history and examination of this patient, discussed the same with the dictator. I agree with the dictator's note ,documented as a scribe. Any additional findings or plans will be noted.
[2020-06-26] MEDS: SODIUM CHLORIDE 0.9% 1,000 ML IV SCH (13:06)
[2020-06-26] MEDS: NYSTATIN 100,000 UNIT/ML SUSP 500,000 UNIT/5 ML CUP PO SCH ×3 (13:47→21:25)
--- NOTE | 2020-06-26 14:02 | P.PN ---
Subjective Progress Note Date: 06/26/20 Patient was seen and examined. No acute events overnight. Patient reports significant improvement in her right upper extremity pain. Currently has pain at the site of incision. States the numbness has improved. She denies any chest pain, shortness of breath or palpitations. No nausea or vomiting. No fever or chills. Objective - Vital Signs Vital signs: Vital Signs Temp 97.8 F 06/26/20 08:12 Pulse 80 06/26/20 12:30 Resp 20 06/26/20 12:00 BP 117/58 06/26/20 12:00 Pulse Ox 95 06/26/20 12:00 Intake & Output 06/25/20 06/26/20 06/26/20 18:59 06:59 18:59 Intake Total 945.128 221.349 Output Total 20 Balance 925.128 221.349 Weight 46.72 kg 46.3 kg Intake: IV 500 Intake, IV Titration 45.128 41.349 Amount Heparin Sod,Pork in 0.45% 45.128 41.349 NaCl 25,000 unit In 0.45 % NaCl 1 250ml.bag @ 12 UNITS/KG/HR 5.606 mls/hr IV .Q24H [facility] Rx#: [id number] Oral 400 180 Output: Estimated Blood Loss 20 Other: Voiding Method Bedside Commode Bedside Commode # Voids 2 # Bowel Movements 1 - Exam General: [non toxic], [no distress], [appears at stated age] Derm: [warm], [dry] Head: [atraumatic], [normocephalic], [symmetric] Eyes: [EOMI], [no lid lag], [anicteric sclera] Mouth: [no lip lesion], [mucus membranes moist] Cardiovascular: [S1S2 irregular], [no murmur], [positive posterior tibial pulse bilateral], Lungs: [Decreased breath sounds bilateral], [no rhonchi, no rales] , [no accessory muscle use] Abdominal: [soft], [ nontender to palpation], [no guarding], [no appreciable organomegaly] Ext: [no gross muscle atrophy], [1+ pitting bilateral lower extremity edema], [no contractures], [incision site dressing clean dry and intact] Neuro: [no focal neuro deficits] Psych: [Alert], [oriented], [appropriate affect] - Labs CBC & Chem 7: 06/26/20 10:46 06/26/20 10:46 Labs: Abnormal Lab Results - Last 24 Hours (Table) 06/25/20 06/25/20 06/25/20 Range/Units 15:40 15:40 15:40 MCHC (31.0-37.0) g/dL RDW 16.4 H (11.5-15.5) % INR 1.2 H (<1.2) APTT (22.0-30.0) sec Sodium 129 L (137-145) mmol/L Chloride 96 L (98-107) mmol/L BUN 43 H (7-17) mg/dL Creatinine 1.47 H (0.52-1.04) mg/dL Total Bilirubin 2.4 H (0.2-1.3) mg/dL AST 44 H (14-36) U/L Alkaline Phosphatase 132 H (38-126) U/L Total Protein (6.3-8.2) g/dL 06/26/20 06/26/20 06/26/20 Range/Units 02:05 10:46 10:46 MCHC 30.0 L (31.0-37.0) g/dL RDW 16.7 H (11.5-15.5) % INR (<1.2) APTT >200.0 H* 31.5 H (22.0-30.0) sec Sodium (137-145) mmol/L Chloride (98-107) mmol/L BUN (7-17) mg/dL Creatinine (0.52-1.04) mg/dL Total Bilirubin (0.2-1.3) mg/dL AST (14-36) U/L Alkaline Phosphatase (38-126) U/L Total Protein (6.3-8.2) g/dL 06/26/20 Range/Units 10:46 MCHC (31.0-37.0) g/dL RDW (11.5-15.5) % INR (<1.2) APTT (22.0-30.0) sec Sodium 132 L (137-145) mmol/L Chloride (98-107) mmol/L BUN 39 H (7-17) mg/dL Creatinine 1.23 H (0.52-1.04) mg/dL Total Bilirubin 2.1 H (0.2-1.3) mg/dL AST (14-36) U/L Alkaline Phosphatase (38-126) U/L Total Protein 6.0 L (6.3-8.2) g/dL Assessment and Plan Assessment: 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 fib, on Eliquis -Suspected failure of therapy with reported good compliance -Continue atenolol for rate control -Cardiology consulted - recommends adding aspirin to medication regimen Hyponatremia, improving -Likely secondary to dehydration -Continue normal saline at 60 mL per hour. -Repeat BMP tomorrow morning ANDRE on chronic kidney disease -IV hydration as above and repeat BMP tomorrow morning -Avoid nephrotoxins Bilateral lower extremity pitting edema -Likely secondary to chronic diastolic CHF -Continue with 40 mg Lasix by mouth twice a day DVT prophylaxis -Heparin infusion [Patient admitted for acute right-sided axillary and brachial artery occlusion with limb ischemia. Status post thrombectomy with good result. Transitioned to home dose oral anticoagulant. Aspirin added. She is pending clinical improvement. Likely DC in 2-3 days.]
--- NOTE | 2020-06-26 15:53 | P.CNPUL ---
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 The patient also has chronic atrial fibrillation maintained on anticoagulation. She has hypertension and CHF and secondary pulmonary hypertension as comorbid conditions. This patient came into the ED with a right upper extremity pain, weakness and numbness. She was found to have an occlusion of the right axillary artery which clearly revealed on the CT angiogram of the right upper extremity. The patient was taken to the operating room by the vascular surgeon and the patient underwent an open thrombectomy. Currently, right upper extremity pain is improved significantly. The right hand is slightly colder than the left, however, there is adequate pulsation the right upper extremity. The patient wasn't positive for 0.9. The patient is currently on IV heparin. The patient had a baseline creatinine of 1.4 which dropped down to 1.2 and the rest of the electrodes are all within normal limits. Lactic acid level is at 1.4 at a time of admission. In terms of her breathing, she denies having any worsening shortness of breath. Chest x-ray was reviewed chronic fibrotic changes in lung bases bilaterally along with some interstitial infiltrates. The CT angiogram also confirmed the finding as the patient was found to have pleural thickening in the lung bases in addition to some cardiomegaly. No pericardial effusion. No pleural effusion. There is moderate to severe cardiomegaly and pulmonary disease and fibrosis and lung bases addition to some left upper lobe emphysematous change. The patient is known to have a preserved LV function based on echocardiogram that was done in December 2019 shows mild concentric LVH, EF of around 50-55%, dilated LA, dilated RA, moderate aortic regurgitation, severe pulmonary hypertension with severe tricuspid regurgitation with a PA pressure of 81 and moderate degree of mitral regurgitation. Review of Systems Constitutional: Denies chills, Denies fever Eyes: denies as per HPI, denies blurred vision, denies bulging eye, denies decreased vision, denies diplopia, denies discharge, denies dry eye, denies irritation, denies itching, denies pain, denies photophobia, denies loss of peripheral vision, denies loss of vision, denies tunnel vision/blind spots Ears: deny: decreased hearing, ear discharge, earache, tinnitus Ears, nose, mouth and throat: Reports as per HPI Breasts: absent: as per HPI, change in shape, gynecomastia, masses, nipple discharge, pain, skin changes, swelling Cardiovascular: Reports decreased exercise tolerance, Reports dyspnea on exertion Respiratory: Reports dyspnea Gastrointestinal: Reports as per HPI Genitourinary: Reports as per HPI Menstruation: Reports as per HPI Musculoskeletal: Reports arm numbness/tingling (Left upper extremity pain and numbness and tingling) Musculoskeletal: absent: ankle pain, ankle stiffness, ankle swelling, as per HPI, elbow pain, elbow stiffness, elbow swelling, foot pain, foot stiffness, foot swelling, hand pain, hand stiffness, hand swelling, hip pain, hip stiffness, hip swelling, knee pain, knee stiffness, knee swelling, shoulder pain, shoulder stiffness, shoulder swelling, wrist pain, wrist stiffness, wrist swelling Integumentary: Reports as per HPI Neurological: Reports as per HPI Psychiatric: Reports as per HPI Endocrine: Reports as per HPI Hematologic/Lymphatic: Reports as per HPI Allergic/Immunologic: Reports as per HPI Past Medical History Past Medical History: Atrial Fibrillation, Coronary Artery Disease (CAD), Heart Failure, COPD, Deep Vein Thrombosis (DVT) Additional Past Medical History / Comment(s): Hypertension, dyslipidemia, chronic atrial fibrillation, pulmonary fibrosis,, chronic hypoxic respiratory failure on 2 L nasal cannula, severe pulmonary hypertension, diverticulitis, raynauds, previous UTI with E. coli History of Any Multi-Drug Resistant Organisms: None Reported Past Surgical History: Cholecystectomy, Coronary Bypass/CABG, Tonsillectomy Additional Past Surgical History / Comment(s): subdural hematoma 2003, CABG apx. 30 years ago, bladder sling apx 2004 Past Anesthesia/Blood Transfusion Reactions: No Reported Reaction Past Psychological History: No Psychological Hx Reported Smoking Status: Former smoker Past Alcohol Use History: Occasional Past Drug Use History: None Reported - Past Family History Father Family Medical History: Congestive Heart Failure (CHF), Hypertension Additional Family Medical History / Comment(s): aneurysm Mother Family Medical History: Hypertension Medications and Allergies Home Medications Medication Instructions Recorded Confirmed Type atenoloL [Tenormin] 50 mg PO DAILY 12/30/14 06/25/20 History lisinopriL [Zestril] 5 mg PO DAILY #30 tab 04/02/19 06/25/20 Rx Albuterol Nebulized [Ventolin 2.5 mg INHALATION RT-BID PRN 08/10/19 06/25/20 History Nebulized] Apixaban [Eliquis] 2.5 mg PO BID 08/10/19 06/25/20 History Tiotropium 18 Mcg/Puff [Spiriva] 1 puff INHALATION RT-DAILY 08/10/19 06/25/20 History Budesonide-Formot 160-4.5 Mcg 2 puff INHALATION RT-BID 06/01/20 06/25/20 History [Symbicort 160-4.5 Mcg Inhaler] ALPRAZolam [Xanax] 0.25 mg PO BID PRN 06/25/20 06/25/20 History Furosemide [Lasix] 40 mg PO DAILY 06/25/20 06/25/20 History Spironolactone 25 mg PO DAILY 06/25/20 06/25/20 History Allergies Allergy/AdvReac Type Severity Reaction Status Date / Time Sulfa (Sulfonamide Allergy Rash/Hives Verified 06/25/20 19:18 Antibiotics) sulfamethoxazole Allergy Rash/Hives Verified 06/25/20 19:18 [From Bactrim] Physical Exam Vitals: Vital Signs Temp Pulse Pulse Pulse Resp BP BP 06/26/20 12:30 80 06/26/20 12:18 80 06/26/20 12:00 78 20 117/58 06/26/20 09:10 68 06/26/20 08:58 68 06/26/20 08:12 97.8 F 82 16 102/52 06/26/20 08:00 82 16 06/26/20 04:00 98 F 65 18 99/50 06/26/20 00:00 98.2 F 65 18 101/60 06/25/20 21:30 97.6 F 69 18 125/76 06/25/20 21:17 57 L 16 125/69 06/25/20 21:02 53 L 18 131/75 06/25/20 20:47 98 F 60 16 128/66 06/25/20 18:39 60 16 123/75 06/25/20 16:41 64 17 120/66 Pulse Ox 06/26/20 12:30 06/26/20 12:18 06/26/20 12:00 95 06/26/20 09:10 06/26/20 08:58 06/26/20 08:12 95 06/26/20 08:00 06/26/20 04:00 98 06/26/20 00:00 96 06/25/20 21:30 97 06/25/20 21:17 100 06/25/20 21:02 100 06/25/20 20:47 98 06/25/20 18:39 99 06/25/20 16:41 100 Intake and Output 06/26/20 06/26/20 06/26/20 06:59 14:59 22:59 Intake Total 45.128 221.349 Balance 45.128 221.349 Intake: Intake, IV Titration 45.128 41.349 Amount Heparin Sod,Pork in 0.45% 45.128 41.349 NaCl 25,000 unit In 0.45 % NaCl 1 250ml.bag @ 12 UNITS/KG/HR 5.606 mls/hr IV .Q24H [facility] Rx#: [id number] Oral 180 Other: Voiding Method Bedside Commode Bedside Commode # Voids 2 # Bowel Movements 1 Weight 46.3 kg The patient appeared well nourished and normally developed. Vital signs as documented. Head exam is unremarkable. No scleral icterus or corneal arcus noted. Neck is without jugular venous distension, thyromegaly, or carotid bruits. Carotid upstrokes are brisk bilaterally. Lungs diminished and the patient has coarse crackles in lung bases bilaterally Cardiac exam reveals the PMI to be normally sized and situated. Rhythm is regular. First and second heart sounds normal. No murmurs, rubs or gallops. Abdominal exam reveals normal bowel sounds, no masses, no organomegaly and no aortic enlargement. Extremities are n onedematous and both femoral and pedal pulses are normal. The pulses in the right upper extremity is slightly diminished compared to the left and the arm and hand is slightly colder compared to the left. Adequate motor function in both extremities. Examination of the skin revealed no evidence of significant rashes, suspicious appearing nevi or other concerning lesions.Neurologically, the patient is awake and alert and the patient does not have any focal neurological deficit. Cranial nerves are essentially intact. Results - Laboratory Findings CBC and BMP: 06/26/20 10:46 06/26/20 10:46 PT/INR, D-dimer PT 11.9 sec (9.0-12.0) 06/25/20 15:40 INR 1.2 (<1.2) H 06/25/20 15:40 Abnormal lab findings: Abnormal Labs 06/25/20 06/25/20 06/25/20 15:40 15:40 15:40 MCHC RDW 16.4 H INR 1.2 H APTT Sodium 129 L Chloride 96 L BUN 43 H Creatinine 1.47 H Total Bilirubin 2.4 H AST 44 H Alkaline Phosphatase 132 H Total Protein 06/26/20 06/26/20 06/26/20 02:05 10:46 10:46 MCHC 30.0 L RDW 16.7 H INR APTT >200.0 H* 31.5 H Sodium Chloride BUN Creatinine Total Bilirubin AST Alkaline Phosphatase Total Protein 06/26/20 10:46 MCHC RDW INR APTT Sodium 132 L Chloride BUN 39 H Creatinine 1.23 H Total Bilirubin 2.1 H AST Alkaline Phosphatase Total Protein 6.0 L - Diagnostic Findings Chest x-ray: image reviewed CT scan - chest: image reviewed Assessment and Plan Plan: 1 acute occlusion of the right axillary artery with secondary right upper extremity pain and weakness and numbness, post thrombectomy the patient is postop day #1. The patient is currently on IV heparin. Consider thrombotic versus embolic event. Patient is known to have chronic atrial fibrillation and she has been taken Eliquis on outpatient basis 2 chronic pulmonary fibrosis with interstitial fibrotic changes in lung bases bilaterally. 3 COPD 4 chronic hypoxic respiratory failure medical [place] at 2 L per minute nasal cannula. 5 severe pulmonary hypertension with a PA pressure of 83 mmHg secondary to chronic lung disease 6 preserved LV function with an ejection fraction of 50-55% and mild concentric LVH 7 chronic atrial fibrillation 8 hypertension 9 hyperlipidemia 10 recurrent UTIs with E. coli a graph 11 previous history of coronary artery disease and bypass surgery 11 previous history of subdural hematoma 12 previous history of DVT 13 acute kidney injury, improving Plan Pulmonary status including COPD and pulmonary fibrosis stable for now Oxygen 2 L per minute nasal cannula Resume Spiriva and Symbicort as maintenance and albuterol nebulized treatment [id number] on a daily basis IV fluids as maintenance and monitor the renal function which is already improving Continued IV heparin as the patient is postop thrombectomy May need LYLY to rule out any cardiac thrombus contributing to this acute event which could be potentially embolic in nature Cardiology consultation We'll continue to follow
[2020-06-27] MEDS: SODIUM CHLORIDE 0.9% 1,000 ML IV SCH (04:30)
[2020-06-27 07:45] VITALS: RESP 14
[2020-06-27] MEDS: SYMBICORT 160-4.5 MCG INHALER INHALATION SCH (08:45)
[2020-06-27] MEDS: IPRATROPIUM 0.5 MG/2.5 ML NEBU INHALATION SCH ×3 (08:45→16:40)
[2020-06-27] MEDS ORDERED: ASPIRIN 81 MG PO SCH (09:45)
[2020-06-27] MEDS: APIXABAN 2.5 MG TABLET PO SCH (10:03)
[2020-06-27] MEDS: FUROSEMIDE 40 MG TAB PO SCH (10:04)
[2020-06-27] MEDS: SPIRONOLACTONE 25 MG TAB PO SCH (10:04)
[2020-06-27] MEDS: atenoloL 50 MG TAB PO SCH (10:04)
[2020-06-27] MEDS: NYSTATIN 100,000 UNIT/ML SUSP 500,000 UNIT/5 ML CUP PO SCH ×2 (10:04→12:54)
--- NOTE | 2020-06-27 11:00 | ECHOF ---
Referral Reason:r/o thrombus MEASUREMENTS -------- HEIGHT: 154.9 cm WEIGHT: 43.1 kg BP: 110/66 RVIDd: 3.9 cm (< 3.3) IVSd: 1.3 cm (0.6 - 1.1) LVIDd: 4.0 cm (3.9 - 5.3) LVPWd: 1.3 cm (0.6 - 1.1) IVSs: 1.6 cm LVIDs: 3.0 cm LVPWs: 1.7 cm LA Diam: 4.2 cm (2.7 - 3.8) LAESV Index (A-L): 48.25 ml/m Ao Diam: 3.4 cm (2.0 - 3.7) AV Cusp: 1.6 cm (1.5 - 2.6) MV EXCURSION: 20.347 mm (> 18.000) MV EF SLOPE: 138 mm/s (70 - 150) EPSS: 0.5 cm MV E Marques: 1.06 m/s MV DecT: 195 ms MV A Marques: 0.30 m/s MV E/A Ratio: 3.51 AR PHT: 573 ms RAP: 15.00 mmHg RVSP: 59.47 mmHg FINDINGS -------- Atrial fibrillation. This was a technically good study. The left ventricular size is normal. There is mild concentric left ventricular hypertrophy. Left ventricular systolic function is hyperdynamic with an estimated EF of >70%. The right ventricle is moderately enlarged. LA is severely dilated >40 ml/m2 The right atrium is normal in size. Interatrial and interventricular septum intact. There is mild aortic valve sclerosis. There is moderate aortic regurgitation. The mitral valve leaflets are mildly thickened. Mild mitral annular calcification present. Mild m itral regurgitation is present. Moderate to severe tricuspid regurgitation present. There is severe pulmonary hypertension. The r ight ventricular systolic pressure, as measured by Doppler, is 59.47mmHg. Trace/mild (physiologic) pulmonic regurgitation. The aortic root size is normal. The inferior vena cava is dilated with no significant inspiratory collapse which is consistent estima janeen right atrial pressure of >15 mmHg. There is no pericardial effusion. CONCLUSIONS -------- 1. The left ventricular size is normal. 2. There is mild concentric left ventricular hypertrophy. 3. Left ventricular systolic function is hyperdynamic with an estimated EF of >70%. 4. The right ventricle is moderately enlarged. 5. LA is severely dilated >40 ml/m2 6. There is mild aortic valve sclerosis. 7. There is moderate aortic regurgitation. 8. The mitral valve leaflets are mildly thickened. 9. Mild mitral annular calcification present. 10. Mild mitral regurgitation is present. 11. Moderate to severe tricuspid regurgitation present. 12. There is severe pulmonary hypertension. 13. The right ventricular systolic pressure, as measured by Doppler, is 59.47mmHg. 14. Trace/mild (physiologic) pulmonic regurgitation. 15. The inferior vena cava is dilated with no significant inspiratory collapse which is consistent es timated right atrial pressure of >15 mmHg. 16. There is no pericardial effusion. [employer] SUPERVISOR: Elba Nevarez RDCS
--- NOTE | 2020-06-27 11:10 | P.PN ---
Subjective Progress Note Date: 06/27/20 Principal diagnosis: Right axillary occlusion, acute right upper extremity ischemia This is an 84-year-old female with a past medical history of COPD on home oxygen, atrial fibrillation and hypertension who presented a couple of days ago to the emergency department with pain in the right upper extremity with numbness and weakness. He was found to not have a radial pulse and a CTA of the right upper extremity was performed revealing an acute occlusion of the axillary artery with reconstitution of the brachial artery. She is status postop day #2 for a open right upper extremity thrombectomy of the axillary and brachial artery. She has been transitioned back over to Eliquis 2.5 mg BID and low dose ASA daily. States her pain has improved and incision site. She is able to move bilateral upper extremities and fingers. She denies any fever acute changes through the night. Cardiology is on consult and pending further work up. Objective - Vital Signs Vital signs: Vital Signs Temp 97.2 F L 06/27/20 07:29 Pulse 76 06/27/20 08:57 Resp 14 06/27/20 07:59 BP 110/66 06/27/20 07:29 Pulse Ox 96 06/27/20 07:29 Intake & Output 06/26/20 06/27/20 06/27/20 18:59 06:59 18:59 Intake Total 221.349 480 Balance 221.349 480 Weight 43.5 kg Intake: Intake, IV Titration 41.349 Amount Heparin Sod,Pork in 0.45% 41.349 NaCl 25,000 unit In 0.45 % NaCl 1 250ml.bag @ 12 UNITS/KG/HR 5.606 mls/hr IV .Q24H [facility] Rx#: [id number] Oral 180 480 Other: Voiding Method Bedside Commode Bedside Commode Bedside Commode # Voids 1 2 1 # Bowel Movements 1 - Exam General appearance: The patient is alert, oriented, in no acute distress. HET: Head is normocephalic and atraumatic. Neck: Supple without lymphadenopathy. Trachea midline. Heart: S1 S2. Regular rate and rhythm. Lungs: Clear to auscultation Extremities: Bilateral palpable radial pulses 2/4. Right upper extremity including fingers with full range of motion. Incision site clean dry and intact with dressing with some surrounding ecchymosis. Bilateral lower extremity edema, palpable bilateral dorsalis pedis pulses. Neurological: No focal deficits. Strength and sensation are grossly intact. - Labs CBC & Chem 7: 06/26/20 10:46 06/26/20 10:46 Labs: Abnormal Lab Results - Last 24 Hours (Table) 06/26/20 06/26/20 06/26/20 Range/Units 10:46 10:46 10:46 MCHC 30.0 L (31.0-37.0) g/dL RDW 16.7 H (11.5-15.5) % APTT 31.5 H (22.0-30.0) sec Sodium 132 L (137-145) mmol/L BUN 39 H (7-17) mg/dL Creatinine 1.23 H (0.52-1.04) mg/dL Total Bilirubin 2.1 H (0.2-1.3) mg/dL Total Protein 6.0 L (6.3-8.2) g/dL Assessment and Plan Assessment: 1. Acute limb ischemia right upper extremity 2. Right axillary artery occlusion, status post op day 1 open right upper extremity thrombectomy of axillary and brachial artery 3. Atrial fibrillation, on [place] 2.5 mg twice a day 4. Hypertension 3. COPD on home oxygen 6. Bilateral lower extremity swelling Plan: The patient is status postop day #2 for an open upper extremity thrombectomy of the axillary brachial artery Advance diet as tolerated Patient has been transitioned back to Eliquis is 2.5 mg by mouth twice a day, with daily low-dose aspirin Appreciate recommendations from cardiology for further cardiac work up The patient may be discharged home from a vascular surgical standpoint. Recommend outpatient follow-up with Dr. Chamberlain in 1-2 weeks. The impression and plan of care has been dictated as directed. Dr. Chamberlain I performed a history and examination of this patient, discussed the same with the dictator. I agree with the dictator's note ,documented as a scribe. Any additional findings or plans will be noted.
--- NOTE | 2020-06-27 11:27 | P.PN ---
Subjective HISTORY OF PRESENTING ILLNESS This is a pleasant 84-year-old female past medical history significant for chronic persistent atrial fibrillation on long-term anticoagulation, coronary artery disease status post bypass grafting in 1980, chronic diastolic heart failure and hypertension. She follows in the office with Dr. Garcia. She is seen and examined sitting up in the bed in no acute distress. Blood pressure 110/66 heart rate 76 afebrile and maintaining oxygen saturation on nasal cannula. Echocardiogram obtained revealed hyperdynamic LV with EF greater than 70%, severely dilated LA, moderate AR, mild MR, severe TR and severe pulmonary hypertension with RVSP 59 mmHg. PHYSICAL EXAMINATION CONSTITUTIONAL: No apparent distress. HEENT: Head is normocephalic. Pupils are equal, round. Sclerae anicteric. Mucous membranes of the mouth are moist. No JVD. No carotid bruit. CHEST EXAMINATION: Lungs are clear to auscultation. No chest wall tenderness is noted on palpation or with deep breathing. HEART EXAMINATION: Irregular rate and rhythm. S1, S2 and S3 gallop auscultated in the epigastric region suggestive of origin at the right ventricle. EXTREMITIES: 2+ peripheral pulses, 1+ bilateral lower extremity edema and no calf tenderness. ASSESSMENT Acute right axillary thrombosis status post thrombectomy Chronic persistent atrial fibrillation on long-term anticoagulation Coronary artery disease status post bypass grafting Chronic diastolic heart failure Hypertension Pulmonary hypertension Pulmonary fibrosis PLAN She is appropriately anticoagulated with Eliquis 2.5 mg twice a day given her age, weight and renal function. The patient states she is compliant with her anticoagulation and does not miss her dosing. Discussion regarding possible LYLY to assess her LV thrombus however this would not change her treatment regimen. We will resume her Eliquis today and add aspirin 81 mg daily. Further discussion regarding the possibility of watchman device to be placed take place as an outpatient in the office with Dr. Garcia. Thank you kindly for this consultation. Nurse Practitioner note has been reviewed, I agree with a documented findings and plan of care. Patient was seen and examined. Objective - Vital Signs Vital signs: Vital Signs Temp 97.2 F L 06/27/20 07:29 Pulse 76 06/27/20 08:57 Resp 14 06/27/20 07:59 BP 110/66 06/27/20 07:29 Pulse Ox 96 06/27/20 07:29 Intake & Output 06/26/20 06/27/20 06/27/20 18:59 06:59 18:59 Intake Total 221.349 480 Output Total 100 Balance 221.349 380 Weight 43.5 kg Intake: Intake, IV Titration 41.349 Amount Heparin Sod,Pork in 0.45% 41.349 NaCl 25,000 unit In 0.45 % NaCl 1 250ml.bag @ 12 UNITS/KG/HR 5.606 mls/hr IV .[facility] Rx#: [id number] Oral 180 480 Output: Urine 100 Other: Voiding Method Bedside Commode Bedside Commode Bedside Commode # Voids 1 2 1 # Bowel Movements 1 - Labs CBC & Chem 7: 06/26/20 10:46 06/26/20 10:46 Labs: Abnormal Lab Results - Last 24 Hours (Table) 06/26/20 06/26/20 Range/Units 10:46 10:46 APTT 31.5 H (22.0-30.0) sec Sodium 132 L (137-145) mmol/L BUN 39 H (7-17) mg/dL Creatinine 1.23 H (0.52-1.04) mg/dL Total Bilirubin 2.1 H (0.2-1.3) mg/dL Total Protein 6.0 L (6.3-8.2) g/dL
[2020-06-27 12:48] LABS: Appearance,Urine Clear (Clear); Bilirubin,Urine Negative (Negative); Blood,Urine Negative (Negative); Color,Urine Light Yellow; Glucose,Urine (UA) Negative (Negative); Ketones,Urine Negative (Negative); Leukocyte Esterase,Urine Negative (Negative); Nitrite,Urine Negative (Negative); Protein,Urine Negative (Negative); Urobilinogen,Urine <2.0 mg/dL (<2.0)
--- NOTE | 2020-06-27 13:30 | CDI ---
Documentation Clarification Form Date: 06/27/2020 01:13:04 PM From: Sandra Sadler RN CCDS Admit Date: 06/25/2020 06:26:00 PM Patient Name: Karina Britton Visit Number: [id number] Discharge Date: ATTENTION: The Clinical Documentation Specialists (CDI) and [facility] Coding Staff appreciate your assistance in clarifying documentation. Please respond to the clarification below the line at the bottom and electronically sign. The CDI & [facility] Coding staff will review the response and follow-up if needed. Please note: Queries are made part of the Legal Health Record. If you have any questions, please contact the author of this message via ITS. Dr. Emily Che CKD is documented in H&P 06/26 and in Internal Medicine Progress Note 06/27 History/Risk Factors: 84-year-old female presents to the ED with acute hand numbness and right aching shoulder. Medical history of Afib; CAD; Diastolic CHF; HTN and chronic respiratory failure. Clinical Indicators: 06/26 Current BUN: 39; CR:1.23 GFR: 40; The following labs were located in previous medical records: 04/09 BUN: 25; CR: 1.2; GFR 40.9; 02/07 BUN: 30; CR:1.1; GFR: 45.4; 01/20 BUN: 33; CR: 1.02; GFR: 50 Treatment:06/25 0.9ns 1L bolus 06/25 0.9ns 60cchr In order to capture the severity of condition, please clarify the stage of the CKD, if known: CKD Stage 1 (GFR > 90) CKD Stage 2 (GFR 60-89) CKD Stage 3 (GFR 30-59) Other, please specify Unable to determine (Last Revision: October 2019) CKD Stage 3 (GFR 30-59) MTDD
--- NOTE | 2020-06-27 13:58 | P.PN ---
Subjective Progress Note Date: 06/27/20 Principal diagnosis: Right axillary artery occlusion This is a 84-year-old female patient with chronic COPD and bilateral lower lobe pulmonary fibrosis and chronic hypoxic respiratory failure and was demented on oxygen at 2 L per minute nasal cannula. The patient also has chronic atrial fibrillation maintained on anticoagulation. She has hypertension and CHF and secondary pulmonary hypertension as comorbid conditions. This patient came into the ED with a right upper extremity pain, weakness and numbness. She was found to have an occlusion of the right axillary artery which clearly revealed on the CT angiogram of the right upper extremity. The patient was taken to the operating room by the vascular surgeon and the patient underwent an open thrombectomy. Currently, right upper extremity pain is improved significantly. The right hand is slightly colder than the left, however, there is adequate pulsation the right upper extremity. The patient wasn't positive for 0.9. The patient is currently on IV heparin. The patient had a baseline creatinine of 1.4 which dropped down to 1.2 and the rest of the electrodes are all within normal limits. Lactic acid level is at 1.4 at a time of admission. In terms of her breathing, she denies having any worsening shortness of breath. Chest x-ray was reviewed chronic fibrotic changes in lung bases bilaterally along with some interstitial infiltrates. The CT angiogram also confirmed the finding as the patient was found to have pleural thickening in the lung bases in addition to some cardiomegaly. No pericardial effusion. No pleural effusion. There is moderate to severe cardiomegaly and pulmonary disease and fibrosis and lung bases addition to some left upper lobe emphysematous change. The patient is known to have a preserved LV function based on echocardiogram that was done in December 2019 shows mild concentric LVH, EF of around 50-55%, dilated LA, dilated RA, moderate aortic regurgitation, severe pulmonary hypertension with severe tricuspid regurgitation with a PA pressure of 81 and moderate degree of mitral regurgitation. On 06/27/2020 patient seen in follow-up on selective care unit. No specific c omplaints today, no worsening dyspnea, she has no acute distress, awake and alert, oriented 3, she continues on Eliquis for anticoagulation for chronic atrial fibrillation. Patient has a history of COPD, with chronic hypoxic rest she failure, severe pulmonary hypertension, and pulmonary fibrosis. From pulmonary perspective her breathing is stable, no distress. No rhonchi no wheezing, she is on 2 L of oxygen pulse ox 96%, her vital signs have been stable. Objective - Vital Signs Vital signs: Vital Signs Temp 97.2 F L 06/27/20 12:38 Pulse 65 06/27/20 12:38 Resp 14 06/27/20 12:38 BP 96/59 06/27/20 12:38 Pulse Ox 95 06/27/20 12:38 Intake & Output 06/26/20 06/27/20 06/27/20 18:59 06:59 18:59 Intake Total 221.349 720 Output Total 700 Balance 221.349 20 Weight 43.5 kg Intake: Intake, IV Titration 41.349 Amount Heparin Sod,Pork in 0.45% 41.349 NaCl 25,000 unit In 0.45 % NaCl 1 250ml.bag @ 12 UNITS/KG/HR 5.606 mls/hr IV .Q24H [facility] Rx#: [id number] Oral 180 720 Output: Urine 700 Straight 600 Other: Voiding Method Bedside Commode Bedside Commode Bedside Commode # Voids 1 2 1 # Bowel Movements 1 - Exam GENERAL EXAM: Alert, very pleasant, 84-year-old white female, 2 L of oxygen and pulse ox 96%, comfortable in no apparent distress. HEAD: Normocephalic/atraumatic. EYES: Normal reaction of pupils, equal size. Conjunctiva pink, sclera white. NOSE: Clear with pink turbinates. THROAT: No erythema or exudates. NECK: No masses, no JVD, no thyroid enlargement, no adenopathy. CHEST: No chest wall deformity. Symmetrical expansion. LUNGS: Equal air entry with limited crackles, but no wheeze, rhonchi or dullness. CVS: Irregular rate and rhythm, normal S1 and S2, no gallops, no murmurs, no rubs ABDOMEN: Soft, nontender. No hepatosplenomegaly, normal bowel sounds, no guarding or rigidity. EXTREMITIES: No clubbing, no edema, no cyanosis, 2+ pulses and upper and lower extremities. MUSCULOSKELETAL: Muscle strength and tone normal. SPINE: No scoliosis or deformity SKIN: No rashes CENTRAL NERVOUS SYSTEM: Alert and oriented -3. No focal deficits, tone is normal in all 4 extremities. PSYCHIATRIC: Alert and oriented -3. Appropriate affect. Intact judgment and insight. - Labs CBC & Chem 7: 06/26/20 10:46 06/26/20 10:46 Assessment and Plan Plan: Assessment: 1 acute occlusion of the right axillary artery with secondary right upper extremity pain and weakness and numbness, post thrombectomy the patient is postop day #1. The patient is currently on IV heparin. Consider thrombotic versus embolic event. Patient is known to have chronic atrial fibrillation and she has been taken Eliquis on outpatient basis 2 chronic pulmonary fibrosis with interstitial fibrotic changes in lung bases bilaterally. 3 COPD 4 chronic hypoxic respiratory failure medical [place] at 2 L per minute nasal cannula. 5 severe pulmonary hypertension with a PA pressure of 83 mmHg secondary to chronic lung disease 6 preserved LV function with an ejection fraction of 50-55% and mild concentric LVH 7 chronic atrial fibrillation 8 hypertension 9 hyperlipidemia 10 recurrent UTIs with E. coli a graph 11 previous history of coronary artery disease and bypass surgery 11 previous history of subdural hematoma 12 previous history of DVT 13 acute kidney injury, improving Plan: Continue nebulized bronchodilators, Symbicort, and Spiriva. COPD is stable at this time, no worsening dyspnea. Anticoagulation per cardiology and vascular surgery. Discussed the case with cardiology about possibility of transesophageal echocardiogram, and cardiology feels that there is no benefit in LYLY right now, with the same treatment and chronic anticoagulation. Aspirin was added. Pulmonary service will sign off and follow on as-needed basis. She can follow up with Dr. Michelle in the office in 7-10 days I performed a history & physical examination of the patient and discussed their management with my nurse practitioner, Roula Shelton. I reviewed the nurse practitioner's note and agree with the documented findings and plan of care. Lung sounds are positive for diminished breath sounds. The findings and the impression was discussed with the patient. I attest to the documentation by the nurse practitioner. Time with Patient: Less than 30
--- NOTE | 2020-06-27 14:18 | P.DS ---
Providers Date of admission: 06/25/20 18:26 Expected date of discharge: 06/27/20 Attending physician: Mala Sawyer MD Consults: 06/25/20 18:17 Consult Physician Stat Consulting Provider: Renata Chamberlain Consult Reason/Comments: arterial occlusion Do you want consulting provider notified?: Already Contacted 06/25/20 21:05 Consult Physician Routine Consulting Provider: Onelia Garcia Consult Reason/Comments: Cardiac History Do you want consulting provider notified?: Yes, Notify in am 06/25/20 21:06 Consult Physician Routine Consulting Provider: Michael Mercado Consult Reason/Comments: COPD Do you want consulting provider notified?: Yes, Notify in am Primary care physician: Laureen Rao [facility] Hospital Course: Patient is an 84-year-old female with a PMH of A. fib on Eliquis, hypertension, diastolic CHF, COPD with chronic hypoxic respiratory failure on 2 L of nasal cannula oxygen at home had presented to the emergency room with complaints of a sudden onset of right arm pain and numbness. Patient reports that her symptoms started roughly an hour or two prior to presentation. She reports that her pain started suddenly with associated weakness and numbness of the right hand. She notes that she has had never had such pain in the past. An upper extremity CTA in the emergency room revealed occlusion at the level of the axillary artery. Vascular surgery was consulted and the patient was subsequently taken to the OR for a right upper extremity thrombectomy of the axillary and brachial arteries. The procedure was completed uneventfully and the patient was seen postoperatively. She reported that her pain had essentially resolved and that she was also regaining strength and feeling in the arm and hand. The patient also reports that over the past few weeks she has noticed that her legs have been getting increasingly swollen. She denied leg pain however and also denied orthopnea. She denied any additional complaints. She denied chest pain, sh ortness of breath, fever, chills, nausea, vomiting, abdominal pain. Patient underwent thrombectomy with good results. Cardiology was consulted and recommended continuing Eliquis and adding aspirin. Cardiology recommended no LYLY as it would not change her management. Her sodium was 129 and creatinine 1.47 on admission and thought to be related to dehydration. She improved with IVF and her sodium at the time of discharge was 132 and her creatinine 1.23. Echocardiogram was done which showed EF greater than 70% with moderate concentric LVH and no thrombus. Patient was seen and examined. No acute events overnight. Patient reports significant improvement in her right upper extremity pain. No more paresthesias. She denies any chest pain, shortness breath or palpitations. No nausea or vomiting. No fever or chills. General: [non toxic], [no distress], [appears at stated age] Derm: [warm], [dry] Head: [atraumatic], [normocephalic], [symmetric] Eyes: [EOMI], [no lid lag], [anicteric sclera] Mouth: [no lip lesion], [mucus membranes moist] Cardiovascular: [S1S2 irregular], [no murmur], [positive posterior tibial pulse bilateral], Lungs: [Decreased breath sounds bilateral], [no rhonchi, no rales] , [no accessory muscle use] Abdominal: [soft], [ nontender to palpation], [no guarding], [no appreciable organomegaly] Ext: [no gross muscle atrophy], [1+ pitting bilateral lower extremity edema], [no contractures], [incision site dressing clean dry and intact] Neuro: [no focal neuro deficits] Psych: [Alert], [oriented], [appropriate affect] Urinary retention -Bladder scan as needed -Status post straight cath -Encourage ambulation and voiding trial prior to discharge 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 fib, on Eliquis -Suspected failure of therapy with reported good compliance -Continue atenolol for rate control -Cardiology consulted - recommends adding aspirin to medication regimen Hyponatremia, improving -Likely secondary to dehydration -Encourage hydration by mouth ANDRE on chronic kidney disease -Encourage hydration by mouth -Avoid nephrotoxins Bilateral lower extremity pitting edema -Likely secondary to chronic diastolic CHF -Continue with 40 mg Lasix by mouth twice a day DVT prophylaxis -Eliquis [Patient admitted for acute right-sided axillary and brachial artery occlusion with limb ischemia. Status post thrombectomy with good result. Transitioned to home dose oral anticoagulant. Aspirin added. Anticipated DC home today if vascular surgery agreeable. This complex discharge took about 35 minutes to complete.] Pertinent Studies: Chest x-ray, chest CTA, CT upper extremity, echocardiogram Procedures: Thrombectomy Patient Condition at Discharge: Stable Plan - Discharge Summary Discharge Rx Participant: Yes New Discharge Prescriptions: New Aspirin 81 mg PO DAILY #90 chew Continue atenoloL [Tenormin] 50 mg PO DAILY lisinopriL [Zestril] 5 mg PO DAILY #30 tab Tiotropium 18 Mcg/Puff [Spiriva] 1 puff INHALATION RT-DAILY Apixaban [Eliquis] 2.5 mg PO BID Albuterol Nebulized [Ventolin Nebulized] 2.5 mg INHALATION RT-BID PRN PRN Reason: Shortness Of Breath Budesonide-Formot 160-4.5 Mcg [Symbicort 160-4.5 Mcg Inhaler] 2 puff INHALATION RT-BID ALPRAZolam [Xanax] 0.25 mg PO BID PRN PRN Reason: Anxiety Spironolactone 25 mg PO DAILY Furosemide [Lasix] 40 mg PO DAILY Discharge Medication List atenoloL [Tenormin] 50 mg PO DAILY 12/30/14 [History] lisinopriL [Zestril] 5 mg PO DAILY #30 tab 04/02/19 [Rx] Albuterol Nebulized [Ventolin Nebulized] 2.5 mg INHALATION RT-BID PRN 08/10/19 [History] Apixaban [Eliquis] 2.5 mg PO BID 08/10/19 [History] Tiotropium 18 Mcg/Puff [Spiriva] 1 puff INHALATION RT-DAILY 08/10/19 [History] Budesonide-Formot 160-4.5 Mcg [Symbicort 160-4.5 Mcg Inhaler] 2 puff INHALATION RT-BID 06/01/20 [History] ALPRAZolam [Xanax] 0.25 mg PO BID PRN 06/25/20 [History] Furosemide [Lasix] 40 mg PO DAILY 06/25/20 [History] Spironolactone 25 mg PO DAILY 06/25/20 [History] Aspirin 81 mg PO DAILY #90 chew 06/27/20 [Rx] Follow up Appointment(s)/Referral(s): Onelia Garcia MD [STAFF PHYSICIAN] - 07/04/20 9:00 am (Thursday) Laureen Rao NPC [Primary Care Provider] - 1-2 days Michael Mercado DO [Doctor of Osteopathic Medicine] - 1 Week Activity/Diet/Wound Care/Special Instructions: Diet: Cardiac FU PCP within 3 days of DC. FU Cardiology within 1 week of DC. Take all medications as advised. Come back to the ED for Chest pain, SOB, palpitations, numbness/weakness/tingling of the extremities, slurred speech, dizziness, unstable gait. Discharge Disposition: HOME SELF-CARE
[2020-06-27 17:24] VITALS: BP 97/54; PULSE 100; TEMP 97
== END 2020-06-27 18:38 | disposition home or self-care (01) | DRG 253 ==
LOC: EC 14:58 → 3SCARD 18:26
PROVIDERS: ADMIT Internal Medicine; ATTEND Internal Medicine
PROC: 03C70ZZ Extirpation of Matter from Right Brachial Artery, Open Approach (ICD-10-PCS; principal; 2020-06-25 19:10)
DX: I74.2 Embolism and thrombosis of arteries of the upper extremities (principal); E87.1 Hypo-osmolality and hyponatremia; I13.0 Hypertensive heart and chronic kidney disease with heart failure and stage 1 through stage 4 chronic kidney disease, or unspecified chronic kidney disease; I27.82 Chronic pulmonary embolism; I48.19 Other persistent atrial fibrillation; I50.32 Chronic diastolic (congestive) heart failure; J96.11 Chronic respiratory failure with hypoxia; N17.9 Acute kidney failure, unspecified; I27.29 Other secondary pulmonary hypertension; J84.10 Pulmonary fibrosis, unspecified; N18.30 Chronic kidney disease, stage 3 unspecified; J44.9 Chronic obstructive pulmonary disease, unspecified; R33.9 Retention of urine, unspecified; E78.5 Hyperlipidemia, unspecified; I08.3 Combined rheumatic disorders of mitral, aortic and tricuspid valves; I25.10 Atherosclerotic heart disease of native coronary artery without angina pectoris; I73.00 Raynaud's syndrome without gangrene; I99.8 Other disorder of circulatory system; K57.90 Diverticulosis of intestine, part unspecified, without perforation or abscess without bleeding; Z79.01 Long term (current) use of anticoagulants; Z79.51 Long term (current) use of inhaled steroids; Z79.899 Other long term (current) drug therapy; Z86.718 Personal history of other venous thrombosis and embolism; Z87.440 Personal history of urinary (tract) infections; Z87.891 Personal history of nicotine dependence; Z99.81 Dependence on supplemental oxygen; Z95.1 Presence of aortocoronary bypass graft; Z90.49 Acquired absence of other specified parts of digestive tract; Z87.19 Personal history of other diseases of the digestive system; Z90.89 Acquired absence of other organs; Z88.1 Allergy status to other antibiotic agents; Z88.2 Allergy status to sulfonamides
CPT/HCPCS: 36415; 71045; 71275; 80053; 81003; 83605; 83735; 83880; 84484; 85025; 85027; 85610; 85730; 93005; 93306; 94640; 96360; 99285

== ENCOUNTER 2020-12-08 12:53 | Inpatient (IN) | payer MEDICARE ==
--- NOTE | 2020-12-08 13:20 | ED ---
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 Patient has felt lightheaded for the past several days however today was worse which prompted them to come to the ER for evaluation. States that she feels like she is going to pass out when she stands up. Patient has chronic dry cough however no new upper respiratory symptoms. She has had some increased shortness of breath. Patient also feels very weak and had nausea. No fevers at home. She has also had some increased swelling in her legs. Patient has no other complaints at this time including chest pain, abdominal pain,headache, or visual changes. (Memo Cloud) Dictation was produced using [employer] dictation software. please excuse any grammatical, word or spelling errors. This patient was cared for during a federal and state declared state of emergency secondary to Covid 19 Chief Complaint: 85-year-old female past medical history of a fibrillation, coronary artery disease, heart failure and COPD DVT presents to the emergency department for presyncope History of Present Illness: Is 85-year-old female she is a poor historian. She is accompanied by her daughter. Daughter reports that recently she had an episode where she was presyncopal. She has been having exertional nausea and shortness of breath. Patient has multiple comorbidities. She takes antihypertensive medications. She does have a history of atrial fibrillation. Patient is not sure of all the medication she takes. Noted is her daughter. She does have a list that shows an hypertensive medications. According chart review patient is supposed to be on apixaban as of 2019. She does however have a history of subdural hematoma. Patient states that she is been feeling ill. She normally worse 3 L of nasal cannula oxygen at home. She does have a history of COPD and does see a computer installer. The ROS documented in this emergency department record has been reviewed and confirmed by me. Those systems with pertinent positive or negative responses have been documented in the HPI. All other systems are other negative and/or noncontributory. PHYSICAL EXAM: General Impression: Alert and oriented x3, not in acute distress, mild acrocyanosis HEENT: Normocephalic atraumatic, extra-ocular movements intact, pupils equal and reactive to light bilaterally, dry mucous membranes Cardiovascular: Heart regular rate and rhythm Chest: Able to complete full sentences, no retractions, no tachypnea, lungs clear to auscultation bilaterally Abdomen: abdomen soft, non-tender, non-distended, no organomegaly Musculoskeletal: Weak and thready Pulses present and equal in all extremities, 3+ pitting edema to the bilateral lower extremities Motor: no focal deficits noted Neurological: CN II-XII grossly intact, no focal motor or sensory deficits noted Skin: Intact with no visualized rashes Psych: Normal affect and mood ED course: 85-year-old female with multiple comorbidities. She wears 3 L of nasal cannula home oxygen. Vital signs upon arrival shows a 9% on 2 L nasal cannula. At the bedside patient was found to be in the high 80s on 3 L nasal cannula. Patient states nasal cannula oxygen was put up to 5 with oxygen saturations of 91 and 92%. EKG interpretation: Ventricular rate 54, A. fib with slow ventricular rate, QRS 82, QTc 43. No IN prolongation, no QTC prolongation, no ST or T-wave changes noted. EKG compared to 06/25/2020 showing no changes. Overall, this EKG is unremarkable Laboratory evaluation obtained. CBC is unremarkable. Eyes within acceptable limits. INR is 2.0. D-dimer is 1.79. Metabolic panel shows sodium 124 with a potassium 5.2. Mild gap acidosis. Elevated renal markers. Lactic acidosis of 2.1 troponin 0.035. Brain natruretic peptide of 11,500. Coronavirus is negative. Patient's troponin elevation is likely secondary to acute kidney injury. Chest x-ray shows findings of heart failure. Clinical presentation consistent with acute heart failure exacerbation. Patient has borderline blood pressure. Patient will be admitted for gentle diuresis. Case discussed with sound physician Dr. Gill who is willing to accept patients care. Cardiology was consulted. Patient started on low-dose heparin. VQ scan pending due to no supply of radioactive material for concerns of possible breakthrough PE. (Harsha Bolanos) - Related Data Home Medications Medication Instructions Recorded Confirmed atenoloL [Tenormin] 50 mg PO DAILY 12/30/14 06/25/20 Albuterol Nebulized [Ventolin 2.5 mg INHALATION RT-BID PRN 08/10/19 06/25/20 Nebulized] Apixaban [Eliquis] 2.5 mg PO BID 08/10/19 06/25/20 Tiotropium 18 Mcg/Puff [Spiriva] 1 puff INHALATION RT-DAILY 08/10/19 06/25/20 Budesonide-Formot 160-4.5 Mcg 2 puff INHALATION RT-BID 06/01/20 06/25/20 [Symbicort 160-4.5 Mcg Inhaler] ALPRAZolam [Xanax] 0.25 mg PO BID PRN 06/25/20 06/25/20 Furosemide [Lasix] 40 mg PO DAILY 06/25/20 06/25/20 Spironolactone 25 mg PO DAILY 06/25/20 06/25/20 Previous Rx's Medication Instructions Recorded lisinopriL [Zestril] 5 mg PO DAILY #30 tab 04/02/19 Aspirin 81 mg PO DAILY #90 chew 06/27/20 Allergies Allergy/AdvReac Type Severity Reaction Status Date / Time Sulfa (Sulfonamide Allergy Rash/Hives Verified 06/25/20 19:18 Antibiotics) sulfamethoxazole Allergy Rash/Hives Verified 06/25/20 19:18 [From Bactrim] Review of Systems ROS Other: All systems not noted in ROS Statement are negative. <Memo Cloud P - Last Filed: 12/08/20 13:17> ROS Other: All systems not noted in ROS Statement are negative. <Harsha Bolanos - Last Filed: 12/08/20 16:02> ROS Statement: Those systems with pertinent positive or pertinent negative responses have been documented in the HPI. Past Medical History Past Medical History: Atrial Fibrillation, Coronary Artery Disease (CAD), Heart Failure, COPD, Deep Vein Thrombosis (DVT) Additional Past Medical History / Comment(s): Hypertension, dyslipidemia, chronic atrial fibrillation, pulmonary fibrosis,, chronic hypoxic respiratory failure on 2 L nasal cannula, severe pulmonary hypertension, diverticulitis, raynauds, previous UTI with E. coli History of Any Multi-Drug Resistant Organisms: None Reported Past Surgical History: Cholecystectomy, Coronary Bypass/CABG, Tonsillectomy Additional Past Surgical History / Comment(s): subdural hematoma 2003, CABG apx. 30 years ago, bladder sling apx 2004 Past Anesthesia/Blood Transfusion Reactions: No Reported Reaction Past Psychological History: No Psychological Hx Reported Smoking Status: Former smoker Past Alcohol Use History: Occasional Past Drug Use History: None Reported - Past Family History Father Family Medical History: Congestive Heart Failure (CHF), Hypertension Additional Family Medical History / Comment(s): aneurysm Mother Family Medical History: Hypertension <Memo Cloud P - Last Filed: 12/08/20 13:17> General Exam Limitations: no limitations <Memo Cloud - Last Filed: 12/08/20 13:17> Course Vital Signs 12/08/20 12/08/20 13:09 14:39 Temperature 97.3 F L Pulse Rate 63 54 L Respiratory 20 20 Rate Blood Pressure 94/55 99/56 O2 Sat by Pulse 89 L 96 Oximetry Medical Decision Making - Lab Data Result diagrams: 12/08/20 13:38 12/08/20 13:38 <Harsha Bolanos - Last Filed: 12/08/20 16:02> - Lab Data Lab Results 12/08/20 12/08/20 12/08/20 Range/Units 13:38 13:38 13:38 WBC 4.0 (3.8-10.6) k/uL RBC 4.93 (3.80-5.40) m/uL Hgb 12.4 (11.4-16.0) gm/dL Hct 39.5 (34.0-46.0) % MCV 80.3 (80.0-100.0) fL MCH 25.1 (25.0-35.0) pg MCHC 31.3 (31.0-37.0) g/dL RDW 17.7 H (11.5-15.5) % Plt Count 131 L (150-450) k/uL MPV 12.0 Neutrophils % 62 % Lymphocytes % 23 % Monocytes % 11 % Eosinophils % 0 % Basophils % 0 % Neutrophils # 2.5 (1.3-7.7) k/uL Lymphocytes # 0.9 L (1.0-4.8) k/uL Monocytes # 0.4 (0-1.0) k/uL Eosinophils # 0.0 (0-0.7) k/uL Basophils # 0.0 (0-0.2) k/uL Manual Slide Review Performed Large Platelets Present Hypochromasia Moderate Poikilocytosis Slight Anisocytosis Slight Microcytosis Slight Fragmented RBCs Present PT 20.1 H (9.0-12.0) sec INR 2.0 H (<1.2) APTT 34.5 H (22.0-30.0) sec D-Dimer 1.79 H (<0.60) mg/L FEU Sodium 124 L (137-145) mmol/L Potassium 5.2 H (3.5-5.1) mmol/L Chloride 90 L (98-107) mmol/L Carbon Dioxide 21 L (22-30) mmol/L Anion Gap 13 mmol/L BUN 88 H (7-17) mg/dL Creatinine 2.48 H (0.52-1.04) mg/dL Est GFR (CKD-EPI)AfAm 20 (>60 ml/min/1.73 sqM) Est GFR (CKD-EPI)NonAf 17 (>60 ml/min/1.73 sqM) Glucose 96 (74-99) mg/dL Plasma Lactic Acid Renard (0.7-2.0) mmol/L Calcium 9.6 (8.4-10.2) mg/dL Magnesium 2.2 (1.6-2.3) mg/dL Total Bilirubin 3.3 H (0.2-1.3) mg/dL AST 43 H (14-36) U/L ALT 19 (4-34) U/L Alkaline Phosphatase 114 (38-126) U/L Troponin I (0.000-0.034) ng/mL NT-Pro-B Natriuret Pep pg/mL Total Protein 5.6 L (6.3-8.2) g/dL Albumin 3.2 L (3.5-5.0) g/dL Coronavirus (PCR) (Not Detectd) 12/08/20 12/08/20 12/08/20 Range/Units 13:38 13:38 13:38 WBC (3.8-10.6) k/uL RBC (3.80-5.40) m/uL Hgb (11.4-16.0) gm/dL Hct (34.0-46.0) % MCV (80.0-100.0) fL MCH (25.0-35.0) pg MCHC (31.0-37.0) g/dL RDW (11.5-15.5) % Plt Count (150-450) k/uL MPV Neutrophils % % Lymphocytes % % Monocytes % % Eosinophils % % Basophils % % Neutrophils # (1.3-7.7) k/uL Lymphocytes # (1.0-4.8) k/uL Monocytes # (0-1.0) k/uL Eosinophils # (0-0.7) k/uL Basophils # (0-0.2) k/uL Manual Slide Review Large Platelets Hypochromasia Poikilocytosis Anisocytosis Microcytosis Fragmented RBCs PT (9.0-12.0) sec INR (<1.2) APTT (22.0-30.0) sec D-Dimer (<0.60) mg/L FEU Sodium (137-145) mmol/L Potassium (3.5-5.1) mmol/L Chloride (98-107) mmol/L Carbon Dioxide (22-30) mmol/L Anion Gap mmol/L BUN (7-17) mg/dL Creatinine (0.52-1.04) mg/dL Est GFR (CKD-EPI)AfAm (>60 ml/min/1.73 sqM) Est GFR (CKD-EPI)NonAf (>60 ml/min/1.73 sqM) Glucose (74-99) mg/dL Plasma Lactic Acid Renard 2.1 H* (0.7-2.0) mmol/L Calcium (8.4-10.2) mg/dL Magnesium (1.6-2.3) mg/dL Total Bilirubin (0.2-1.3) mg/dL AST (14-36) U/L ALT (4-34) U/L Alkaline Phosphatase (38-126) U/L Troponin I 0.035 H* (0.000-0.034) ng/mL NT-Pro-B Natriuret Pep 16326 pg/mL Total Protein (6.3-8.2) g/dL Albumin (3.5-5.0) g/dL Coronavirus (PCR) (Not Detectd) 12/08/20 Range/Units 13:38 WBC (3.8-10.6) k/uL RBC (3.80-5.40) m/uL Hgb (11.4-16.0) gm/dL Hct (34.0-46.0) % MCV (80.0-100.0) fL MCH (25.0-35.0) pg MCHC (31.0-37.0) g/dL RDW (11.5-15.5) % Plt Count (150-450) k/uL MPV Neutrophils % % Lymphocytes % % Monocytes % % Eosinophils % % Basophils % % Neutrophils # (1.3-7.7) k/uL Lymphocytes # (1.0-4.8) k/uL Monocytes # (0-1.0) k/uL Eosinophils # (0-0.7) k/uL Basophils # (0-0.2) k/uL Manual Slide Review Large Platelets Hypochromasia Poikilocytosis Anisocytosis Microcytosis Fragmented RBCs PT (9.0-12.0) sec INR (<1.2) APTT (22.0-30.0) sec D-Dimer (<0.60) mg/L FEU Sodium (137-145) mmol/L Potassium (3.5-5.1) mmol/L Chloride (98-107) mmol/L Carbon Dioxide (22-30) mmol/L Anion Gap mmol/L BUN (7-17) mg/dL Creatinine (0.52-1.04) mg/dL Est GFR (CKD-EPI)AfAm (>60 ml/min/1.73 sqM) Est GFR (CKD-EPI)NonAf (>60 ml/min/1.73 sqM) Glucose (74-99) mg/dL Plasma Lactic Acid Renard (0.7-2.0) mmol/L Calcium (8.4-10.2) mg/dL Magnesium (1.6-2.3) mg/dL Total Bilirubin (0.2-1.3) mg/dL AST (14-36) U/L ALT (4-34) U/L Alkaline Phosphatase (38-126) U/L Troponin I (0.000-0.034) ng/mL NT-Pro-B Natriuret Pep pg/mL Total Protein (6.3-8.2) g/dL Albumin (3.5-5.0) g/dL Coronavirus (PCR) Not Detected (Not Detectd) Disposition <Memo Cloud P - Last Filed: 12/08/20 13:17> Decision Time: 16:02 <Harsha Bolanos - Last Filed: 12/08/20 16:02> Clinical Impression: Heart failure Disposition: ADMITTED IP TO THIS HOSP Condition: Fair Referrals: Jose Almanza [Primary Care Provider] - 1-2 days
[2020-12-08] MEDS ORDERED: SODIUM CHLORIDE 0.9% 500 ML 500 ML IV STA (13:37)
--- NOTE | 2020-12-08 13:58 | XR ---
EXAMINATION TYPE: XR chest 2V DATE OF EXAM: 12/08/2020 COMPARISON: 06/25/2020 INDICATION: Short of breath, weakness TECHNIQUE: Frontal and lateral views of the chest are obtained. FINDINGS: The heart size is normal. Sternotomy wires are present from prior CABG. The pulmonary vasculature is normal. Small bilateral pleural effusions are present. Mild subsegmental atelectasis is likely adjacent. IMPRESSION: 1. Small bilateral pleural effusions with compressive atelectasis bilateral lung bases
[2020-12-08 14:40] LABS: Anisocytosis Slight; Basophils % (A) 0 %; Eosinophils % (A) 0 %; HCT 39.5 % (34.0-46.0); HGB 12.4 gm/dL (11.4-16.0); Hypochromasia Moderate; Lymphocytes # (A) 0.9 k/uL (1.0-4.8); Lymphocytes % (A) 23 %; MCH 25.1 pg (25.0-35.0); MCHC 31.3 g/dL (31.0-37.0); MCV 80.3 fL (80.0-100.0); Microcytosis Slight; Monocytes # (A) 0.4 k/uL (0-1.0); Monocytes % (A) 11 %; Neutrophils # (A) 2.5 k/uL (1.3-7.7); Neutrophils % (A) 62 %; Platelet Count 131 k/uL (150-450); Poikilocytosis Slight; RBC 4.93 m/uL (3.80-5.40); RDW 17.7 % (11.5-15.5)
[2020-12-08 14:43] LABS: Partial Thromboplastin Time 34.5 sec (22.0-30.0); Prothrombin Time 20.1 sec (9.0-12.0)
[2020-12-08 14:48] LABS: Albumin 3.2 g/dL (3.5-5.0); Calcium 9.6 mg/dL (8.4-10.2); D-Dimer 1.79 mg/L FEU (<0.60); Magnesium 2.2 mg/dL (1.6-2.3); Potassium 5.2 mmol/L (3.5-5.1); Total Bilirubin 3.3 mg/dL (0.2-1.3); Total Protein 5.6 g/dL (6.3-8.2)
[2020-12-08 15:01] LABS: Large Platelets Present; RBC Fragments Present
[2020-12-08] MEDS ORDERED: HEPARIN SODIUM 1,000 UN/ML (10ML VL) IV ONE (15:11)
[2020-12-08] MEDS ORDERED: HEPARIN SODIUM 1,000 UN/ML (10ML VL) IV PRN (15:11)
[2020-12-08] MEDS ORDERED: ASPIRIN 325 MG TAB PO STA (15:47)
[2020-12-08] MEDS ORDERED: FUROSEMIDE 10 MG/ML 4 ML VIAL IV SCH (16:00)
[2020-12-08] MEDS: SODIUM CHLORIDE 0.9% 1,000 ML IV SCH (16:34)
[2020-12-08] MEDS: HEPARIN SOD,PORK IN 0.45% NACL 25,000 UNIT in 0.45% NACL 1 250ML.BAG IV SCH (16:37)
[2020-12-08] MEDS ORDERED: DOCUSATE 100 MG CAP PO PRN (17:01)
[2020-12-08] MEDS ORDERED: NALOXONE 0.4 MG/ML 1 ML VIAL IV PRN (17:01)
[2020-12-08] MEDS ORDERED: ALBUTEROL NEBULIZED 2.5 MG/3 ML INHALATION PRN (17:04)
--- NOTE | 2020-12-08 17:07 | P.HPIM ---
History of Present Illness H&P Date: 12/08/20 Chief Complaint: presyncope/dizziness 85-year-old woman with medical history of atrial fibrillation, end-stage COPD on 3 L of home oxygen, congestive heart failure with reduced ejection fraction presented with increasing be/dizziness. Patient says that she's been having 3 d ays worth of dizziness and feelings like she might pass out. She has never actually fell or syncopized. She also complains of increased shortness of breath and swelling in her lower extremities. Patient denies fevers, vomiting, abdominal pain, chest pain, palpitations, constipation, dysuria, numbness of her extremities. Patient reports chills, nausea, abdominal cramps, intermittent diarrhea, bilateral leg weakness. In the emergency room, she was noted to be in atrial fibrillation with slow ventricular rate, blood pressure stable, afebrile. Pertinent labs included INR of 2.0, PTT of 34.5, d-dimer 1.8, sodium of 124, BUN/creatinine of 88/2.5, lactic acid 2.1. Troponin was 0.035. BNP was 11,500. Covid was negative. Chest x-ray demonstrated bilateral pleural effusions with some atelectasis in the bases. EKG demonstrated slow atrial fibrillation. Review of Systems All Systems reviewed and pertinent positives and negatives noted in HPI, all other symptoms are negative Past Medical History Past Medical History: Atrial Fibrillation, Coronary Artery Disease (CAD), Heart Failure, COPD, Deep Vein Thrombosis (DVT) Additional Past Medical History / Comment(s): Hypertension, dyslipidemia, ch ronic atrial fibrillation, pulmonary fibrosis,, chronic hypoxic respiratory failure on 2 L nasal cannula, severe pulmonary hypertension, diverticulitis, raynauds, previous UTI with E. coli History of Any Multi-Drug Resistant Organisms: None Reported Past Surgical History: Cholecystectomy, Coronary Bypass/CABG, Tonsillectomy Additional Past Surgical History / Comment(s): subdural hematoma 2003, CABG apx. 30 years ago, bladder sling apx 2004 Past Anesthesia/Blood Transfusion Reactions: No Reported Reaction Past Psychological History: No Psychological Hx Reported Smoking Status: Former smoker Past Alcohol Use History: Occasional Past Drug Use History: None Reported - Past Family History Father Family Medical History: Congestive Heart Failure (CHF), Hypertension Additional Family Medical History / Comment(s): aneurysm Mother Family Medical History: Hypertension Medications and Allergies Home Medications Medication Instructions Recorded Confirmed Type atenoloL [Tenormin] 50 mg PO DAILY 12/30/14 12/08/20 History lisinopriL [Zestril] 5 mg PO DAILY #30 tab 04/02/19 12/08/20 Rx Albuterol Nebulized [Ventolin 2.5 mg INHALATION RT-QID PRN 08/10/19 12/08/20 History Nebulized] Apixaban [Eliquis] 2.5 mg PO BID 08/10/19 12/08/20 History Tiotropium 18 Mcg/Puff [Spiriva] 1 cap INHALATION RT-DAILY 08/10/19 12/08/20 History Budesonide-Formot 160-4.5 Mcg 2 puff INHALATION RT-BID 06/01/20 12/08/20 History [Symbicort 160-4.5 Mcg Inhaler] ALPRAZolam [Xanax] 0.25 mg PO BID PRN 06/25/20 12/08/20 History Spironolactone 25 mg PO DAILY 06/25/20 12/08/20 History Furosemide [Lasix] 20 mg PO DAILY 12/08/20 12/08/20 History Sodium Bicarbonate Tab 650 mg PO BID 12/08/20 12/08/20 History Allergies Allergy/AdvReac Type Severity Reaction Status Date / Time Sulfa (Sulfonamide Allergy Rash/Hives Verified 12/08/20 16:27 Antibiotics) sulfamethoxazole Allergy Rash/Hives Verified 12/08/20 16:27 [From Bactrim] Physical Exam Osteopathic Statement: *. No significant issues noted on an osteopathic structural exam other than those noted in the History and Physical/Consult. Vitals: Vital Signs Temp Pulse Resp BP Pulse Ox 12/08/20 14:39 54 L 20 99/56 96 12/08/20 13:09 97.3 F L 63 20 94/55 89 L Intake and Output 12/08/20 12/08/20 12/08/20 06:59 14:59 22:59 Other: Weight 49.895 kg Gen: awake, alert HEENT: normocephalic, atraumatic, good hearing acuity, moist mucous membranes Resp: good air exchange, breathing comfortably with no accessory muscle use, but auscultation bilaterally without wheezes or crackles CVS: good distal perfusion x 4, positive S3, systolic ejection murmur, irregular rhythm, bradycardic GI: soft, NTTP, ND : no SPT, no CVAT, yu catheter not present MSK: Bilateral 3+ pitting edema, chronic venous stasis changes, no clubbing Neuro: non-focal, moving all extremities Psych: cooperative, euthymic mood Results CBC & Chem 7: 12/08/20 13:38 12/08/20 13:38 Labs: Abnormal Lab Results - Last 24 Hours (Table) 12/08/20 12/08/20 12/08/20 Range/Units 13:38 13:38 13:38 RDW 17.7 H (11.5-15.5) % Plt Count 131 L (150-450) k/uL Lymphocytes # 0.9 L (1.0-4.8) k/uL PT 20.1 H (9.0-12.0) sec INR 2.0 H (<1.2) APTT 34.5 H (22.0-30.0) sec D-Dimer 1.79 H (<0.60) mg/L FEU Sodium 124 L (137-145) mmol/L Potassium 5.2 H (3.5-5.1) mmol/L Chloride 90 L (98-107) mmol/L Carbon Dioxide 21 L (22-30) mmol/L BUN 88 H (7-17) mg/dL Creatinine 2.48 H (0.52-1.04) mg/dL Plasma Lactic Acid Renard (0.7-2.0) mmol/L Total Bilirubin 3.3 H (0.2-1.3) mg/dL AST 43 H (14-36) U/L Troponin I (0.000-0.034) ng/mL Total Protein 5.6 L (6.3-8.2) g/dL Albumin 3.2 L (3.5-5.0) g/dL 12/08/20 12/08/20 Range/Units 13:38 13:38 RDW (11.5-15.5) % Plt Count (150-450) k/uL Lymphocytes # (1.0-4.8) k/uL PT (9.0-12.0) sec INR (<1.2) APTT (22.0-30.0) sec D-Dimer (<0.60) mg/L FEU Sodium (137-145) mmol/L Potassium (3.5-5.1) mmol/L Chloride (98-107) mmol/L Carbon Dioxide (22-30) mmol/L BUN (7-17) mg/dL Creatinine (0.52-1.04) mg/dL Plasma Lactic Acid Renard 2.1 H* (0.7-2.0) mmol/L Total Bilirubin (0.2-1.3) mg/dL AST (14-36) U/L Troponin I 0.035 H* (0.000-0.034) ng/mL Total Protein (6.3-8.2) g/dL Albumin (3.5-5.0) g/dL Assessment and Plan Assessment: Acute on chronic systolic heart failure exacerbation Acute on chronic hypoxemic respiratory failure Hx of CAD s/p CABG -Admit to telemetry -I/os, daily weights -Repeat echocardiogram -Lasix 60 IV twice a day -Cardiology consult -Oxygen when necessary -DuoNeb when necessary -Continue home spironolactone -Continue home lisinopril Permanent atrial fibrillation with slow ventricular response History of pulmonary embolism -Patient is on a low-dose heparin drip -Holding home Eliquis, for which it is unclear whether patient is taking this or not -Hold home atenolol given bradycardia and dizziness -Orthostatics twice a day COPD, cold stage IV, not in exacerbation -Continue on Symbicort, tiotropium -DuoNeb's as above Hypertension -Lisinopril as above -Atenolol as above -Spironolactone as above Anxiety -Continue Xanax when necessary DVT prophylaxis is covered with therapeutic anticoagulation Patient is DO NOT RESUSCITATE/DO NOT INTUBATE Patient has paperwork referring to one of her children as the DPOA
[2020-12-08] MEDS: SYMBICORT 160-4.5 MCG INHALER INHALATION SCH (21:08)
[2020-12-08] MEDS: SODIUM BICARBONATE TAB 650 MG TAB PO SCH (22:12)
[2020-12-08] MEDS: FUROSEMIDE 10 MG/ML 10 ML VIAL IV SCH (22:12)
[2020-12-09 00:32] LABS: Appearance,Urine Clear (Clear); Bilirubin,Urine Negative (Negative); Blood,Urine Negative (Negative); Color,Urine Yellow; Glucose,Urine (UA) Negative (Negative); Ketones,Urine Negative (Negative); Leukocyte Esterase,Urine Negative (Negative); Nitrite,Urine Negative (Negative); PH, Urine 5.5 (5.0-8.0); Protein,Urine Negative (Negative); Specific Gravity,Urine 1.004 (1.001-1.035); Urobilinogen,Urine <2.0 mg/dL (<2.0)
--- NOTE | 2020-12-09 08:25 | NM ---
EXAMINATION TYPE: NM pul vent and perfuse DATE OF EXAM: 12/09/2020 COMPARISON: 12/08/2020 HISTORY: Difficulty breathing TECHNIQUE: Utilizing inhalation of 69.3 mCi Tc 99m DTPA aerosol and intravenous injection of 5.0 mCi of Tc 99m MAA, ventilation and perfusion images are acquired post injection in multiple projections. FINDINGS: There is a large fixed defect along the inferior left base. Small left pleural effusion is also prese nt on the comparison chest x-ray. This would place the patient and the low end of intermediate probab ility for acute pulmonary embolism, 22%. Mismatch defects are evident. IMPRESSION: 1. Low end of intermediate probability for acute pulmonary embolism based on PIOPED 2 criteria.
[2020-12-09] MEDS: SODIUM BICARBONATE TAB 650 MG TAB PO SCH ×2 (08:35→20:42)
[2020-12-09] MEDS: SPIRONOLACTONE 25 MG TAB PO SCH (08:35)
[2020-12-09] MEDS: FUROSEMIDE 10 MG/ML 10 ML VIAL IV SCH (08:35)
[2020-12-09] MEDS: SYMBICORT 160-4.5 MCG INHALER INHALATION SCH ×2 (08:50→20:02)
[2020-12-09] MEDS: IPRATROPIUM 0.5 MG/2.5 ML NEBU INHALATION SCH ×4 (08:50→20:02)
[2020-12-09] MEDS ORDERED: ASPIRIN 81 MG PO SCH (09:00)
[2020-12-09] MEDS ORDERED: lisinopriL 5 MG TAB PO SCH (09:00)
[2020-12-09] MEDS ORDERED: ASPIRIN 325 MG TAB PO SCH (09:00)
[2020-12-09 10:36] LABS: Calcium 9.3 mg/dL (8.4-10.2); Magnesium 2.2 mg/dL (1.6-2.3)
[2020-12-09 10:42] LABS: Anisocytosis Slight; Basophils % (A) 0 %; Eosinophils % (A) 1 %; HCT 42.6 % (34.0-46.0); HGB 12.7 gm/dL (11.4-16.0); Hypochromasia Marked; Lymphocytes # (A) 0.8 k/uL (1.0-4.8); Lymphocytes % (A) 18 %; MCHC 29.9 g/dL (31.0-37.0); MCV 83.3 fL (80.0-100.0); Mean Platelet Volume 8.5; Monocytes # (A) 0.4 k/uL (0-1.0); Monocytes % (A) 8 %; Neutrophils # (A) 3.1 k/uL (1.3-7.7); Neutrophils % (A) 70 %; Poikilocytosis Slight; RBC 5.11 m/uL (3.80-5.40); RDW 17.6 % (11.5-15.5); WBC 4.5 k/uL (3.8-10.6)
[2020-12-09 10:43] LABS: Platelet Count 119 k/uL (150-450)
--- NOTE | 2020-12-09 12:19 | P.PN ---
Subjective Progress Note Date: 12/09/20 No new complaints today. Pt has had good UOP. Objective - Vital Signs Vital signs: Vital Signs Temp 97.3 F L 12/09/20 06:00 Pulse 55 L 12/09/20 08:00 Resp 18 12/09/20 08:00 BP 108/52 12/09/20 08:00 Pulse Ox 100 12/09/20 08:00 Intake & Output 12/08/20 12/09/20 12/09/20 18:59 06:59 18:59 Intake Total 42.607 45.883 Output Total 400 Balance -400 42.607 45.883 Weight 49.895 kg 60 kg Intake: Intake, IV Titration 42.607 45.883 Amount Heparin Sod,Pork in 0.45% 42.607 45.883 NaCl 25,000 unit In 0.45 % NaCl 1 250ml.bag @ 12 UNITS/KG/HR 5.987 mls/hr IV .Q24H [facility] Rx#: [id number] Oral 0 Output: Urine 400 Other: Voiding Method Indwelling Catheter Indwelling Catheter - Exam Gen: awake, alert HEENT: normocephalic, atraumatic, good hearing acuity, moist mucous membranes Resp: good air exchange, breathing comfortably with no accessory muscle use, but auscultation bilaterally without wheezes or crackles CVS: good distal perfusion x 4, positive S3, systolic ejection murmur, irregular rhythm, bradycardic GI: soft, NTTP, ND : no SPT, no CVAT, yu catheter not present MSK: Bilateral 3+ pitting edema, chronic venous stasis changes, no clubbing Neuro: non-focal, moving all extremities Psych: cooperative, euthymic mood - Labs CBC & Chem 7: 12/09/20 09:42 12/09/20 09:42 Labs: Abnormal Lab Results - Last 24 Hours (Table) 12/08/20 12/08/20 12/08/20 Range/Units 13:38 13:38 13:38 MCHC (31.0-37.0) g/dL RDW 17.7 H (11.5-15.5) % Plt Count 131 L (150-450) k/uL Lymphocytes # 0.9 L (1.0-4.8) k/uL PT 20.1 H (9.0-12.0) sec INR 2.0 H (<1.2) APTT 34.5 H (22.0-30.0) sec D-Dimer 1.79 H (<0.60) mg/L FEU Sodium 124 L (137-145) mmol/L Potassium 5.2 H (3.5-5.1) mmol/L Chloride 90 L (98-107) mmol/L Carbon Dioxide 21 L (22-30) mmol/L BUN 88 H (7-17) mg/dL Creatinine 2.48 H (0.52-1.04) mg/dL Glucose (74-99) mg/dL Plasma Lactic Acid Renard (0.7-2.0) mmol/L Total Bilirubin 3.3 H (0.2-1.3) mg/dL AST 43 H (14-36) U/L Troponin I (0.000-0.034) ng/mL Total Protein 5.6 L (6.3-8.2) g/dL Albumin 3.2 L (3.5-5.0) g/dL 12/08/20 12/08/20 12/08/20 Range/Units 13:38 13:38 17:21 MCHC (31.0-37.0) g/dL RDW (11.5-15.5) % Plt Count (150-450) k/uL Lymphocytes # (1.0-4.8) k/uL PT (9.0-12.0) sec INR (<1.2) APTT (22.0-30.0) sec D-Dimer (<0.60) mg/L FEU Sodium (137-145) mmol/L Potassium (3.5-5.1) mmol/L Chloride (98-107) mmol/L Carbon Dioxide (22-30) mmol/L BUN (7-17) mg/dL Creatinine (0.52-1.04) mg/dL Glucose (74-99) mg/dL Plasma Lactic Acid Renard 2.1 H* 3.4 H* (0.7-2.0) mmol/L Total Bilirubin (0.2-1.3) mg/dL AST (14-36) U/L Troponin I 0.035 H* (0.000-0.034) ng/mL Total Protein (6.3-8.2) g/dL Albumin (3.5-5.0) g/dL 12/08/20 12/08/20 12/08/20 Range/Units 20:01 20:42 22:40 MCHC (31.0-37.0) g/dL RDW (11.5-15.5) % Plt Count (150-450) k/uL Lymphocytes # (1.0-4.8) k/uL PT (9.0-12.0) sec INR (<1.2) APTT >200.0 H* (22.0-30.0) sec D-Dimer (<0.60) mg/L FEU Sodium (137-145) mmol/L Potassium (3.5-5.1) mmol/L Chloride (98-107) mmol/L Carbon Dioxide (22-30) mmol/L BUN (7-17) mg/dL Creatinine (0.52-1.04) mg/dL Glucose (74-99) mg/dL Plasma Lactic Acid Renard 2.2 H* (0.7-2.0) mmol/L Total Bilirubin (0.2-1.3) mg/dL AST (14-36) U/L Troponin I 0.036 H* (0.000-0.034) ng/mL Total Protein (6.3-8.2) g/dL Albumin (3.5-5.0) g/dL 12/09/20 12/09/20 12/09/20 Range/Units 09:42 09:42 09:42 MCHC 29.9 L (31.0-37.0) g/dL RDW 17.6 H (11.5-15.5) % Plt Count 119 L (150-450) k/uL Lymphocytes # 0.8 L (1.0-4.8) k/uL PT (9.0-12.0) sec INR (<1.2) APTT 79.3 H (22.0-30.0) sec D-Dimer (<0.60) mg/L FEU Sodium 127 L (137-145) mmol/L Potassium (3.5-5.1) mmol/L Chloride 95 L (98-107) mmol/L Carbon Dioxide 19 L (22-30) mmol/L BUN 84 H (7-17) mg/dL Creatinine 2.29 H (0.52-1.04) mg/dL Glucose 63 L (74-99) mg/dL Plasma Lactic Acid Renard (0.7-2.0) mmol/L Total Bilirubin (0.2-1.3) mg/dL AST (14-36) U/L Troponin I (0.000-0.034) ng/mL Total Protein (6.3-8.2) g/dL Albumin (3.5-5.0) g/dL Assessment and Plan Assessment: Acute on chronic systolic heart failure exacerbation Acute on chronic hypoxemic respiratory failure Hx of CAD s/p CABG -Admit to telemetry -I/os, daily weights -Repeat echocardiogram -Lasix 60 IV twice a day -Cardiology consult -Oxygen when necessary -DuoNeb when necessary -Continue home spironolactone -Continue home lisinopril Permanent atrial fibrillation with slow ventricular response History of pulmonary embolism -Patient is on a low-dose heparin drip -Holding home Eliquis, for which it is unclear whether patient is taking this or not -Hold home atenolol given bradycardia and dizziness -Orthostatics twice a day COPD, cold stage IV, not in exacerbation -Continue on Symbicort, tiotropium -DuoNeb's as above Hypertension -Lisinopril as above -Atenolol as above -Spironolactone as above Anxiety -Continue Xanax when necessary DVT prophylaxis is covered with therapeutic anticoagulation Patient is DO NOT RESUSCITATE/DO NOT INTUBATE Patient has paperwork referring to one of her children as the DPOA
[2020-12-09] MEDS ORDERED: DEXTROSE 50% SYRINGE 50 ML IVP ONE (16:47)
--- NOTE | 2020-12-09 17:53 | P.CNPUL ---
History of Present Illness Consult date: 12/09/20 Requesting physician: Noemi Rai Reason for consult: dyspnea, abnormal CXR/CT Chief complaint: Shortness of breath History of present illness: This is a pleasant 85-year-old female patient who is a poor historian. She does have a history of chronic COPD, bilateral lower lobe pulmonary fibrosis and chronic hypoxic respiratory failure maintained on oxygen at 2 L/m per nasal cannula outpatient setting. She also has history of chronic atrial fibrillation maintained on Eliquis in the past unclear if she was on it recently, hypertension, congestive heart failure, secondary pulmonary hypertension, hyperlipidemia and DVT, renal disease, diverticulitis. Chest has history of coronary artery disease with previous coronary artery bypass grafting. Former smoker. She presented to the emergency room yesterday with complaints of shortness of breath, dry nonproductive cough, weakness and nausea. Some swelling of her lower extremities. Chest x-ray reveals small bilateral pleural effusions with compressive atelectasis. VQ scan revealed low end of intermediate probability for acute pulmonary embolism. The cultures reveal no growth to date. She is seen today in consultation on the selective care unit. She is currently resting fairly comfortably in bed. Alert and oriented times one. She is maintaining O2 saturations in the mid 90s on 4 L/m per nasal cannula. She's afebrile. Slightly hypotensive with systolic pressures in the 80s. White count 4.5. Hemoglobin 12.7. Platelet count 119. Lymphocytes 0.8. Sodium 127. Potassium 5.0. Creatinine 2.29. She is currently on a heparin drip. Symbicort, albuterol. IV diuretics. Currently in a negative balance. Review of Systems ROS unobtainable: due to mental status Past Medical History Past Medical History: Atrial Fibrillation, Coronary Artery Disease (CAD), Heart Failure, COPD, Deep Vein Thrombosis (DVT) Additional Past Medical History / Comment(s): Hypertension, dyslipidemia, chronic atrial fibrillation, pulmonary fibrosis,, chronic hypoxic respiratory failure on 2 L nasal cannula, severe pulmonary hypertension, diverticulitis, raynauds, previous UTI with E. coli History of Any Multi-Drug Resistant Organisms: None Reported Past Surgical History: Cholecystectomy, Coronary Bypass/CABG, Tonsillectomy Additional Past Surgical History / Comment(s): subdural hematoma 2003, CABG apx. 30 years ago, bladder sling apx 2004 Past Anesthesia/Blood Transfusion Reactions: No Reported Reaction Past Psychological History: No Psychological Hx Reported Smoking Status: Former smoker Past Alcohol Use History: Occasional Past Drug Use History: None Reported - Past Family History Father Family Medical History: Congestive Heart Failure (CHF), Hypertension Additional Family Medical History / Comment(s): aneurysm Mother Family Medical History: Hypertension Medications and Allergies Home Medications Medication Instructions Recorded Confirmed Type atenoloL [Tenormin] 50 mg PO DAILY 12/30/14 12/08/20 History lisinopriL [Zestril] 5 mg PO DAILY #30 tab 04/02/19 12/08/20 Rx Albuterol Nebulized [Ventolin 2.5 mg INHALATION RT-QID PRN 08/10/19 12/08/20 History Nebulized] Apixaban [Eliquis] 2.5 mg PO BID 08/10/19 12/08/20 History Tiotropium 18 Mcg/Puff [Spiriva] 1 cap INHALATION RT-DAILY 08/10/19 12/08/20 History Budesonide-Formot 160-4.5 Mcg 2 puff INHALATION RT-BID 06/01/20 12/08/20 History [Symbicort 160-4.5 Mcg Inhaler] ALPRAZolam [Xanax] 0.25 mg PO BID PRN 06/25/20 12/08/20 History Spironolactone 25 mg PO DAILY 06/25/20 12/08/20 History Furosemide [Lasix] 20 mg PO DAILY 12/08/20 12/08/20 History Sodium Bicarbonate Tab 650 mg PO BID 12/08/20 12/08/20 History Allergies Allergy/AdvReac Type Severity Reaction Status Date / Time Sulfa (Sulfonamide Allergy Rash/Hives Verified 12/08/20 16:27 Antibiotics) sulfamethoxazole Allergy Rash/Hives Verified 12/08/20 16:27 [From Bactrim] Physical Exam Vitals: Vital Signs Temp Pulse Pulse Resp BP BP Pulse Ox 12/09/20 15:42 64 12/09/20 15:27 60 12/09/20 15:17 97.8 F 56 L 16 86/41 95 12/09/20 12:00 98.5 F 64 18 90/51 94 L 12/09/20 08:00 55 L 18 108/52 100 12/09/20 06:00 97.3 F L 58 L 16 111/54 99 12/09/20 03:40 97.6 F 56 L 18 94/49 96 12/09/20 02:00 18 12/08/20 23:31 97.9 F 52 L 20 103/58 94 L 12/08/20 20:00 97.6 F 53 L 20 99/63 95 12/08/20 18:00 56 L 18 100/58 95 Intake and Output 12/09/20 12/09/20 12/09/20 06:59 14:59 22:59 Intake Total 42.607 225.883 Output Total 400 Balance 42.607 -174.117 Intake: Intake, IV Titration 42.607 45.883 Amount Heparin Sod,Pork in 0.45% 42.607 45.883 NaCl 25,000 unit In 0.45 % NaCl 1 250ml.bag @ 12 UNITS/KG/HR 5.987 mls/hr IV .Q24H [facility] Rx#: [id number] Oral 180 Output: Urine 400 Other: Voiding Method Indwelling Catheter Indwelling Catheter Weight 60 kg GENERAL EXAM: Alert, oriented times one, is an 85-year-old female patient, on 4 L nasal cannula, comfortable in no apparent distress. HEAD: Normocephalic. EYES: Normal reaction of pupils, equal size. NOSE: Clear with pink turbinates. THROAT: No erythema or exudates. NECK: No masses, no JVD. CHEST: No chest wall deformity. LUNGS: Equal air entry with coarse crackles in the bilateral bases, diminished. CVS: S1 and S2 normal with no audible murmur, regular rhythm. ABDOMEN: No hepatosplenomegaly, normal bowel sounds, no guarding or rigidity. SPINE: No scoliosis or deformity SKIN: No rashes CENTRAL NERVOUS SYSTEM: No focal deficits, tone is normal in all 4 extremities. EXTREMITIES: There is no peripheral edema. No clubbing, no cyanosis. Peripheral pulses are intact. Results - Laboratory Findings CBC and BMP: 12/09/20 09:42 12/09/20 09:42 PT/INR, D-dimer PT 20.1 sec (9.0-12.0) H 12/08/20 13:38 INR 2.0 (<1.2) H 12/08/20 13:38 D-Dimer 1.79 mg/L FEU (<0.60) H 12/08/20 13:38 Abnormal lab findings: Abnormal Labs 12/08/20 12/08/20 12/08/20 13:38 13:38 13:38 MCHC RDW 17.7 H Plt Count 131 L Lymphocytes # 0.9 L PT 20.1 H INR 2.0 H APTT 34.5 H D-Dimer 1.79 H Sodium 124 L Potassium 5.2 H Chloride 90 L Carbon Dioxide 21 L BUN 88 H Creatinine 2.48 H Glucose Plasma Lactic Acid Renard Total Bilirubin 3.3 H AST 43 H Troponin I Total Protein 5.6 L Albumin 3.2 L 12/08/20 12/08/20 12/08/20 13:38 13:38 17:21 MCHC RDW Plt Count Lymphocytes # PT INR APTT D-Dimer Sodium Potassium Chloride Carbon Dioxide BUN Creatinine Glucose Plasma Lactic Acid Renard 2.1 H* 3.4 H* Total Bilirubin AST Troponin I 0.035 H* Total Protein Albumin 12/08/20 12/08/20 12/08/20 20:01 20:42 22:40 MCHC RDW Plt Count Lymphocytes # PT INR APTT >200.0 H* D-Dimer Sodium Potassium Chloride Carbon Dioxide BUN Creatinine Glucose Plasma Lactic Acid Renard 2.2 H* Total Bilirubin AST Troponin I 0.036 H* Total Protein Albumin 12/09/20 12/09/20 12/09/20 09:42 09:42 09:42 MCHC 29.9 L RDW 17.6 H Plt Count 119 L Lymphocytes # 0.8 L PT INR APTT 79.3 H D-Dimer Sodium 127 L Potassium Chloride 95 L Carbon Dioxide 19 L BUN 84 H Creatinine 2.29 H Glucose 63 L Plasma Lactic Acid Renard Total Bilirubin AST Troponin I Total Protein Albumin - Diagnostic Findings Chest x-ray: image reviewed Assessment and Plan Assessment: 1 Acute on chronic hypoxic respiratory failure secondary to an acute exacerbation of diastolic congestive heart failure 2 Acute exacerbation of chronic obstructive pulmonary disease, on home oxygen 3 Chronic pulmonary fibrosis with interstitial fibrotic changes 4 Atrial fibrillation with slow ventricular response, currently on a heparin drip, questionable compliance with Eliquis 5 Severe pulmonary hypertension secondary to chronic lung disease 6 Preserved LV function, hyperdynamic, with an ejection fraction of 70% and mild concentric LVH 7 Chronic atrial fibrillation 8 Hypertension 9 Hyperlipidemia 10 Recurrent UTIs with E. coli 11 Previous history of subdural hematoma, questioning compliance/order of Eliquis, unclear 12 Previous history of DVT 13 Acute kidney injury, improving Plan: The patient was seen and evaluated by Dr. Mercado Chest x-ray, VQ scan and labs reviewed Current and a heparin drip Continue Symbicort, albuterol Titrate down the FiO2 as tolerated Normally on home oxygen at 2 L/m We will continue to follow and make further recommendations based on her clinical status I, the cosigning physician, performed a history & physical examination of the patient. Lungs sounds with coarse crackles in the bilateral bases, diminished. Maintaining good O2 saturations in the 90s on 4 L/m per nasal cannula. I discussed the assessment and plan of care with my nurse practitioner, Deja Monreal. I attest to the above consultation as dictated by her. Time with Patient: Greater than 30
[2020-12-09] MEDS: HEPARIN SOD,PORK IN 0.45% NACL 25,000 UNIT in 0.45% NACL 1 250ML.BAG IV SCH (17:59)
[2020-12-09] MEDS: SODIUM CHLORIDE 0.9% 1,000 ML IV SCH (18:00)
[2020-12-09] MEDS: FUROSEMIDE 10 MG/ML 2 ML VIAL IV SCH (20:28)
--- NOTE | 2020-12-10 08:54 | P.CRDCN ---
History of Present Illness History of present illness: HISTORY OF PRESENTING ILLNESS This is a pleasant 85-year-old female past medical history significant for with persistent atrial fibrillation on long-term anticoagulation, coronary artery disease status post bypass grafting in 1980 with MILLER to LAD, chronic diastolic heart failure, pulmonary hypertension, chronic hypoxic respiratory failure on home oxygen and history of right axillary arterial occlusion. She follows in the office with Dr. Garcia. We have been asked to see in consultation for heart failure. Presented to the hospital with symptoms of weakness and feeling lightheaded. She also admits to having multiple episodes of diarrhea. She states her breathing at times is short but is mostly stable. On arrival she was complaining of lower extremity swelling which has resolved since admission. She is seen and examined sitting up with mild tachypnea. She has no symptoms of chest discomfort. She continues to feel weak and lightheaded. Telemetry tracings reveal persistent atrial fibrillation with heart rate in the 50-60 range. EKG on arrival reveals atrial fibrillation with heart rate of 54. Chest x-ray reveals small bilateral pleural effusions. VQ scan is low probability for PE. Laboratory data reviewed, WBC 4.5, hemoglobin 12.7, platelets 119, d-dimer 1.79, INR 2.0, sodium on admission 124, repeat today 127, potassium 5.0, creatinine 2.29, lactic acid on admission 2.1 and 3.4 with repeat after hydration of 1.6, magnesium 2.2, troponin 0.035, 0.033, 0.036 and NT proBNP 11,500. Current daily cardiac medications include Eliquis 2.5 mg twice a day, Lasix 20 mg daily, Aldactone 25 mg daily, atenolol 50 mg daily and lisinopril 5 mg daily. Most recent echocardiogram obtained October 2019 revealed hyperdynamic LV with ejection fraction greater than 70% REVIEW OF SYSTEMS At the time of my exam: CONSTITUTIONAL: Complains of generalized weakness. Denies fever or chills. CARDIOVASCULAR: Denies chest pain, shortness of breath, orthopnea, PND or palpitations. RESPIRATORY: Denies cough. GASTROINTESTINAL: Denies abdominal pain, diarrhea, constipation, nausea or vomiting. MUSCULOSKELETAL: Denies myalgias. NEUROLOGIC: Denies numbness, tingling, headacbe or weakness. ENDOCRINE: Denies fatigue, weight change, polydipsia or polyurina. GENITOURINARY: Denies burning, hematuria or urgency with micturation. HEMATOLOGIC: Denies history of anemia or bleeding. PHYSICAL EXAMINATION Blood pressure 86/48 heart rate 63 afebrile and maintaining oxygen saturation on nasal cannula. CONSTITUTIONAL: No apparent distress. Mildly tachypneic. HEENT: Head is normocephalic. Pupils are equal, round. Sclerae anicteric. Mucous membranes of the mouth are moist. No JVD. No carotid bruit. CHEST EXAMINATION: Scattered rhonchi, bibasilar rales and faint expiratory wheeze. No chest wall tenderness is noted on palpation or with deep breathing. HEART EXAMINATION: Irregular rate and rhythm. S1, S2 heard. Systolic ejection murmur at the base, no gallops or rub. ABDOMEN: Soft, nontender. Positive bowel sounds. EXTREMITIES: 1+ peripheral pulses, bilateral lower extremity discoloration, no lower extremity edema and no calf tenderness. NEUROLOGIC EXAMINATION: Patient is awake, alert and oriented x3. ASSESSMENT Acute on chronic diastolic heart failure Severe pulmonary hypertension Hyponatremia Lactic acidosis Hyperkalemia, resolved Chronic persistent atrial fibrillation Coronary artery disease status post bypass grafting Chronic kidney disease Hypertension PLAN Discontinue aspirin and resume Eliquis 2.5 mg twice a day for thromboembolic protection. Echocardiogram has been ordered and will be reviewed. Continue gentle IV diuresis. Document accurate intake and output along with daily weights. Follow renal function and electrolytes in the morning. Hold atenolol and lisinopril secondary to hypotension. Further recommendations to follow based upon clinical course. Nurse Practitioner note has been reviewed, I agree with a documented findings and plan of care. Patient was seen and examined. Past Medical History Past Medical History: Atrial Fibrillation, Coronary Artery Disease (CAD), Heart Failure, COPD, Deep Vein Thrombosis (DVT) Additional Past Medical History / Comment(s): Hypertension, dyslipidemia, chronic atrial fibrillation, pulmonary fibrosis,, chronic hypoxic respiratory failure on 2 L nasal cannula, severe pulmonary hypertension, diverticulitis, raynauds, previous UTI with E. coli History of Any Multi-Drug Resistant Organisms: None Reported Past Surgical History: Cholecystectomy, Coronary Bypass/CABG, Tonsillectomy Additional Past Surgical History / Comment(s): subdural hematoma 2003, CABG apx. 30 years ago, bladder sling apx 2004 Past Anesthesia/Blood Transfusion Reactions: No Reported Reaction Past Psychological History: No Psychological Hx Reported Smoking Status: Former smoker Past Alcohol Use History: Occasional Past Drug Use History: None Reported - Past Family History Father Family Medical History: Congestive Heart Failure (CHF), Hypertension Additional Family Medical History / Comment(s): aneurysm Mother Family Medical History: Hypertension Medications and Allergies Home Medications Medication Instructions Recorded Confirmed Type atenoloL [Tenormin] 50 mg PO DAILY 12/30/14 12/08/20 History lisinopriL [Zestril] 5 mg PO DAILY #30 tab 04/02/19 12/08/20 Rx Albuterol Nebulized [Ventolin 2.5 mg INHALATION RT-QID PRN 08/10/19 12/08/20 History Nebulized] Apixaban [Eliquis] 2.5 mg PO BID 08/10/19 12/08/20 History Tiotropium 18 Mcg/Puff [Spiriva] 1 cap INHALATION RT-DAILY 08/10/19 12/08/20 History Budesonide-Formot 160-4.5 Mcg 2 puff INHALATION RT-BID 06/01/20 12/08/20 History [Symbicort 160-4.5 Mcg Inhaler] ALPRAZolam [Xanax] 0.25 mg PO BID PRN 06/25/20 12/08/20 History Spironolactone 25 mg PO DAILY 06/25/20 12/08/20 History Furosemide [Lasix] 20 mg PO DAILY 12/08/20 12/08/20 History Sodium Bicarbonate Tab 650 mg PO BID 12/08/20 12/08/20 History Allergies Allergy/AdvReac Type Severity Reaction Status Date / Time Sulfa (Sulfonamide Allergy Rash/Hives Verified 12/08/20 16:27 Antibiotics) sulfamethoxazole Allergy Rash/Hives Verified 12/08/20 16:27 [From Bactrim] Physical Exam Vitals: Vital Signs Temp Pulse Pulse Pulse Resp BP BP 12/10/20 04:00 63 17 86/48 12/10/20 00:00 97.5 F L 60 18 82/51 12/09/20 20:16 68 12/09/20 20:02 64 12/09/20 20:00 97.5 F L 72 19 85/45 12/09/20 17:40 86/56 12/09/20 17:36 80/56 12/09/20 15:42 64 12/09/20 15:27 60 12/09/20 15:17 97.8 F 56 L 16 86/41 12/09/20 12:00 98.5 F 64 18 90/51 Pulse Ox 12/10/20 04:00 95 12/10/20 00:00 96 12/09/20 20:16 12/09/20 20:02 12/09/20 20:00 96 12/09/20 17:40 12/09/20 17:36 12/09/20 15:42 12/09/20 15:27 12/09/20 15:17 95 12/09/20 12:00 94 L Intake and Output 12/09/20 12/10/20 12/10/20 22:59 06:59 14:59 Intake Total 180 Output Total 450 400 Balance -270 -400 Intake: Oral 180 Output: Urine 450 400 Other: Voiding Method Indwelling Catheter Indwelling Catheter Weight 57.5 kg Results 12/09/20 09:42 12/09/20 09:42 Coagulation 12/09/20 Range/Units 09:42 APTT 79.3 H (22.0-30.0) sec CBC 12/09/20 Range/Units 09:42 WBC 4.5 (3.8-10.6) k/uL RBC 5.11 (3.80-5.40) m/uL Hgb 12.7 (11.4-16.0) gm/dL Hct 42.6 (34.0-46.0) % Plt Count 119 L (150-450) k/uL Comprehensive Metabolic Panel 12/09/20 Range/Units 09:42 Sodium 127 L (137-145) mmol/L Potassium 5.0 (3.5-5.1) mmol/L Chloride 95 L (98-107) mmol/L Carbon Dioxide 19 L (22-30) mmol/L BUN 84 H (7-17) mg/dL Creatinine 2.29 H (0.52-1.04) mg/dL Glucose 63 L (74-99) mg/dL Calcium 9.3 (8.4-10.2) mg/dL Current Medications Generic Name Dose Route Start Last Admin Trade Name Freq PRN Reason Stop Dose Admin Acetaminophen 650 mg 12/08/20 17:01 Acetaminophen Tab 325 Mg Tab PO Q6HR PRN Mild Pain or Fever > 100.5 Albuterol Sulfate 2.5 mg 12/08/20 17:04 Albuterol Nebulized 2.5 Mg/3 Ml INHALATION RT-QID PRN Shortness Of Breath Alprazolam 0.25 mg 12/08/20 17:01 Alprazolam 0.25 Mg Tab PO Q6HR PRN Anxiety Apixaban 2.5 mg 12/10/20 09:00 Apixaban 2.5 Mg Tablet PO BID [facility] Aspirin 81 mg 12/09/20 09:00 12/09/20 08:35 Aspirin 81 Mg PO 81 mg DAILY [facility] Administration Budesonide/Formoterol Fumarate 2 puff 12/08/20 20:00 12/09/20 20:02 Symbicort 160-4.5 Mcg Inhaler INHALATION 2 puff RT-BID [facility] Administration Docusate Sodium 100 mg 12/08/20 17:01 Docusate 100 Mg Cap PO BID PRN Constipation Furosemide 20 mg 12/09/20 21:00 12/09/20 20:28 Furosemide 10 Mg/Ml 2 Ml Vial IV Not Given Q12HR [facility] Sodium Chloride 1,000 mls @ 20 mls/hr 12/08/20 16:00 12/09/20 18:00 Saline 0.9% IV Not Given .Q24H [facility] Ipratropium [place] 0.5 mg 12/09/20 08:00 12/09/20 20:02 Ipratropium 0.5 Mg/2.5 Ml Nebu INHALATION 0.5 mg RT-QID [facility] Administration Naloxone HCl 0.2 mg 12/08/20 17:01 Naloxone 0.4 Mg/Ml 1 Ml Vial IV Q2M PRN Opioid Reversal Ondansetron HCl 4 mg 12/08/20 17:01 Ondansetron 4 Mg/2 Ml Vial IVP Q8HR PRN Nausea And Vomiting Sodium Bicarbonate 650 mg 12/08/20 21:00 12/09/20 20:42 Sodium Bicarbonate Tab 650 Mg Tab PO 650 mg BID [facility] Administration Spironolactone 25 mg 12/09/20 09:00 12/09/20 08:35 Spironolactone 25 Mg Tab PO 25 mg DAILY [facility] Administration Intake and Output 12/09/20 12/10/20 12/10/20 22:59 06:59 14:59 Intake Total 180 Output Total 450 400 Balance -270 -400 Intake: Oral 180 Output: Urine 450 400 Other: Voiding Method Indwelling Catheter Indwelling Catheter Weight 57.5 kg 12/09/20 09:42 12/09/20 09:42
--- NOTE | 2020-12-10 10:01 | P.PN ---
Subjective Progress Note Date: 12/10/20 This is a pleasant 85-year-old female patient who is a poor historian. She does have a history of chronic COPD, bilateral lower lobe pulmonary fibrosis and chronic hypoxic respiratory failure maintained on oxygen at 2 L/m per nasal cannula outpatient setting. She also has history of chronic atrial fibrillation maintained on Eliquis in the past unclear if she was on it recently, hypertension, congestive heart failure, secondary pulmonary hypertension, hyperlipidemia and DVT, renal disease, diverticulitis. Chest has history of coronary artery disease with previous coronary artery bypass grafting. Former smoker. She presented to the emergency room yesterday with complaints of shortness of breath, dry nonproductive cough, weakness and nausea. Some swelling of her lower extremities. Chest x-ray reveals small bilateral pleural effusions with compressive atelectasis. VQ scan revealed low end of intermediate probability for acute pulmonary embolism. The cultures reveal no growth to date. She is seen today in consultation on the selective care unit. She is currently resting fairly comfortably in bed. Alert and oriented times one. She is maintaining O2 saturations in the mid 90s on 4 L/m per nasal cannula. She's afebrile. Slightly hypotensive with systolic pressures in the 80s. White count 4.5. Hemoglobin 12.7. Platelet count 119. Lymphocytes 0.8. Sodium 127. Potassium 5.0. Creatinine 2.29. She is currently on a heparin drip. Symbicort, albuterol. IV diuretics. Currently in a negative balance. On today's evaluation of 12/10/2020, the patient is stable. The patient is currently on Lasix 20 mg IV every 12 hours. The patient on Symbicort and DuoNeb nebulized treatments around the clock. Doing well. IV fluids with normal and creatinine are both elevated and the sodium level is gradually improving. Troponin was 0.03 respectively 3 in the patient's COVID19 swab was negative. The patient is known to have COPD. The patient also has chronic bilateral pulm onary fibrosis and chronic hypoxic respiratory failure maintained on oxygen 2 L per minute nasal cannula. The patient has chronic atrial fibrillation maintained on Eliquis on outpatient basis and addition to multiple other comorbidities including CAD, previous bypass surgery, hypertension and hyper lipidemia and previous history of DVT and chronic kidney disease. The fluid balance is -800 mL over the past 24 hours. The BUN is 84 with a creatinine of 2.29 and it's improving compared to yesterday. Sodium level is up 127. The patient's troponin level was 0.033 respectively. Objective - Vital Signs Vital signs: Vital Signs Temp 97.5 F L 12/10/20 00:00 Pulse 70 12/10/20 08:00 Resp 18 12/10/20 08:00 BP 91/61 12/10/20 08:00 Pulse Ox 92 L 12/10/20 08:00 Intake & Output 12/09/20 12/10/20 12/10/20 18:59 06:59 18:59 Intake Total 405.883 Output Total 600 650 Balance -194.117 -650 Weight 57.5 kg Intake: Intake, IV Titration 45.883 Amount Heparin Sod,Pork in 0.45% 45.883 NaCl 25,000 unit In 0.45 % NaCl 1 250ml.bag @ 12 UNITS/KG/HR 5.987 mls/hr IV .Q24H [facility] Rx#: [id number] Oral 360 Output: Urine 600 650 Other: Voiding Method Indwelling Catheter Indwelling Catheter Indwelling Catheter - Exam GENERAL EXAM: Alert, oriented times one, is an 85-year-old female patient, on 4 L nasal cannula, comfortable in no apparent distress. HEAD: Normocephalic. EYES: Normal reaction of pupils, equal size. NOSE: Clear with pink turbinates. THROAT: No erythema or exudates. NECK: No masses, no JVD. CHEST: No chest wall deformity. LUNGS: Equal air entry with coarse crackles in the bilateral bases, diminished. CVS: S1 and S2 normal with no audible murmur, regular rhythm. ABDOMEN: No hepatosplenomegaly, normal bowel sounds, no guarding or rigidity. SPINE: No scoliosis or deformity SKIN: No rashes CENTRAL NERVOUS SYSTEM: No focal deficits, tone is normal in all 4 extremities. EXTREMITIES: There is no peripheral edema. No clubbing, no cyanosis. Peripheral pulses are intact. - Labs CBC & Chem 7: 12/09/20 09:42 12/09/20 09:42 Labs: Abnormal Lab Results - Last 24 Hours (Table) 12/09/20 12/09/20 12/09/20 Range/Units 09:42 09:42 09:42 MCHC 29.9 L (31.0-37.0) g/dL RDW 17.6 H (11.5-15.5) % Plt Count 119 L (150-450) k/uL Lymphocytes # 0.8 L (1.0-4.8) k/uL APTT 79.3 H (22.0-30.0) sec Sodium 127 L (137-145) mmol/L Chloride 95 L (98-107) mmol/L Carbon Dioxide 19 L (22-30) mmol/L BUN 84 H (7-17) mg/dL Creatinine 2.29 H (0.52-1.04) mg/dL Glucose 63 L (74-99) mg/dL Microbiology - Last 24 Hours (Table) 12/08/20 15:05 Blood Culture - Preliminary Blood No Growth after 24 hours 12/08/20 13:38 Blood Culture - Preliminary Blood No Growth after 24 hours Assessment and Plan Plan: 1 Acute on chronic hypoxic respiratory failure secondary to an acute exacerbation of diastolic congestive heart failure him a currently on diuretics with IV Lasix. The patient is currently on oxygen at 4 L of oxygen by nasal cannula. Her baseline is at 2. Chest x-ray is consistent mainly with CHF with bilateral pulmonary infiltrates right more than left pleural effusion. 2 Acute exacerbation of chronic obstructive pulmonary disease, on home oxygen 3 Chronic pulmonary fibrosis with interstitial fibrotic changes 4 Atrial fibrillation with slow ventricular response, currently on a heparin drip, questionable compliance with Eliquis 5 Severe pulmonary hypertension secondary to chronic lung disease 6 Preserved LV function, hyperdynamic, with an ejection fraction of 70% and mild concentric LVH 7 Chronic atrial fibrillation 8 Hypertension 9 Hyperlipidemia 10 Recurrent UTIs with E. coli 11 Previous history of subdural hematoma, questioning compliance/order of Eliquis, unclear 12 Previous history of DVT 13 Acute kidney injury, improving Plan: May stop IV heparin Continue Symbicort, albuterol Titrate down the FiO2 as tolerated Normally on home oxygen at 2 L/m Continue diuretics, Lasix and a milligrams every 12 hours Monitor sodium level , sodium level is up to 127 Monitor renal function, creatinine stable and improving We will continue to follow and make further recommendations based on her clinical status the patient will be seen on an as-needed basis.
[2020-12-10] MEDS: SPIRONOLACTONE 25 MG TAB PO SCH (10:11)
[2020-12-10] MEDS: SODIUM BICARBONATE TAB 650 MG TAB PO SCH ×2 (10:11→20:26)
[2020-12-10] MEDS: APIXABAN 2.5 MG TABLET PO SCH ×2 (10:11→20:26)
[2020-12-10] MEDS: IPRATROPIUM 0.5 MG/2.5 ML NEBU INHALATION SCH ×3 (11:05→20:25)
[2020-12-10] MEDS: SYMBICORT 160-4.5 MCG INHALER INHALATION SCH ×2 (11:05→20:20)
--- NOTE | 2020-12-10 11:51 | ECHOF ---
Referral Reason:HFrEF MEASUREMENTS -------- HEIGHT: 154.9 cm WEIGHT: 57.2 kg BP: RVIDd: 6.3 cm (< 3.3) IVSd: 0.9 cm (0.6 - 1.1) LVIDd: 2.3 cm (3.9 - 5.3) LVPWd: 1.2 cm (0.6 - 1.1) IVSs: 1.7 cm LVIDs: 1.3 cm LVPWs: 1.8 cm LAESV Index (A-L): 50.34 ml/m Ao Diam: 3.2 cm (2.0 - 3.7) AV Cusp: 2.0 cm (1.5 - 2.6) LA Diam: 4.0 cm (2.7 - 3.8) MV EXCURSION: 23.254 mm (> 18.000) MV EF SLOPE: 103 mm/s (70 - 150) EPSS: 0.6 cm MV E Marques: 1.01 m/s MV DecT: 222 ms MV A Marques: 0.32 m/s MV E/A Ratio: 3.16 AR PHT: 548 ms RAP: 20.00 mmHg RVSP: 73.58 mmHg FINDINGS -------- This was a technically good study. The left ventricular size is normal. There is borderline concentric left ventricular hypertrophy. Overall left ventricular systolic function is normal with, an EF between 55 - 60 %. Increased LAP Grade 3 Diastolic Dysfunction. The right ventricle is severely enlarged. LA is severely dilated >40 ml/m2 The right atrium is moderately enlarged. Interatrial and interventricular septum intact. Aortic valve is trileaflet and is mildly thickened. There is umgqwuvt-su-uhjqcl aortic regurgitatio n. The mitral valve is normal. Mild mitral regurgitation is present. The tricuspid valve appears structurally normal. Severe tricuspid regurgitation present. There is severe pulmonary hypertension. The right ventricular systolic pressure, as measured by Doppler, is 73.58mmHg. Moderate pulmonic regurgitation. The aortic root size is normal. The inferior vena cava is dilated with no significant inspiratory collapse which is consistent estima janeen right atrial pressure of >20 mmHg. There is no pericardial effusion. CONCLUSIONS -------- 1. The left ventricular size is normal. 2. There is borderline concentric left ventricular hypertrophy. 3. Overall left ventricular systolic function is normal with, an EF between 55 - 60 %. 4. Increased LAP Grade 3 Diastolic Dysfunction. 5. The right ventricle is severely enlarged. 6. LA is severely dilated >40 ml/m2 7. The right atrium is moderately enlarged. 8. Aortic valve is trileaflet and is mildly thickened. 9. There is yskqvcyr-ey-bfgdwu aortic regurgitation. 10. Mild mitral regurgitation is present. 11. Severe tricuspid regurgitation present. 12. There is severe pulmonary hypertension. 13. The right ventricular systolic pressure, as measured by Doppler, is 73.58mmHg. 14. Moderate pulmonic regurgitation. 15. The inferior vena cava is dilated with no significant inspiratory collapse which is consistent es timated right atrial pressure of >20 mmHg. 16. There is no pericardial effusion. SERVICE STATION MANAGER: Laila Toledo RDCS
[2020-12-10 11:54] VITALS: BMI 23.9
[2020-12-10] MEDS: FUROSEMIDE 10 MG/ML 2 ML VIAL IV SCH ×2 (12:38→20:26)
--- NOTE | 2020-12-10 13:54 | P.PN ---
Subjective Progress Note Date: 12/10/20 Principal diagnosis: Remains on 4 L of oxygen. She is using oxygen at home. No chest pain no abdominal pain, no nausea no vomiting. Objective - Vital Signs Vital signs: Vital Signs Temp 97.5 F L 12/10/20 00:00 Pulse 56 L 12/10/20 11:39 Resp 18 12/10/20 11:39 BP 79/45 12/10/20 13:38 Pulse Ox 91 L 12/10/20 11:39 Intake & Output 12/09/20 12/10/20 12/10/20 18:59 06:59 18:59 Intake Total 405.883 360 Output Total 600 650 400 Balance -194.117 -650 -40 Weight 57.5 kg 57.5 kg Intake: Intake, IV Titration 45.883 Amount Heparin Sod,Pork in 0.45% 45.883 NaCl 25,000 unit In 0.45 % NaCl 1 250ml.bag @ 12 UNITS/KG/HR 5.987 mls/hr IV .Q24H [facility] Rx#: [id number] Oral 360 360 Output: Urine 600 650 400 Other: Voiding Method Indwelling Catheter Indwelling Catheter Indwelling Catheter - Exam GENERAL EXAM: Alert, oriented times one, comfortable HEAD: Normocephalic. EYES: Normal reaction of pupils, equal size. NECK: No masses, no JVD. CHEST: No chest wall deformity. LUNGS: Decreased breath sounds, no wheezing CVS: S1 and S2 normal with no audible murmur, regular rhythm. ABDOMEN: No hepatosplenomegaly, normal bowel sounds, no guarding or rigidity. CENTRAL NERVOUS SYSTEM: No focal deficits, tone is normal in all 4 extremities. EXTREMITIES: There is no peripheral edema. No clubbing, no cyanosis. - Labs CBC & Chem 7: 12/09/20 09:42 12/09/20 09:42 Labs: Microbiology - Last 24 Hours (Table) 12/08/20 15:05 Blood Culture - Preliminary Blood No Growth after 24 hours 12/08/20 13:38 Blood Culture - Preliminary Blood No Growth after 24 hours Assessment and Plan Assessment: 1 Acute on chronic hypoxic respiratory failure secondary to an acute exacerbation of diastolic congestive heart failure him a currently on diuretics with IV Lasix. continues to be on oxygen at 4 L of oxygen by nasal cannula. Her baseline is at 2-3. Continue oxygen bronchodilators and supportive care 2 Acute exacerbation of chronic obstructive pulmonary disease, with chronic hypoxic respiratory failure on home oxygen 3 Chronic pulmonary fibrosis with interstitial fibrotic changes 4 Atrial fibrillation with slow ventricular response, continue Eliquis , continue Lasix 5 Severe pulmonary hypertension secondary to chronic lung disease: On diuretics with Lasix and Aldactone 6 Preserved LV function, hyperdynamic, with an ejection fraction of 70% and mild concentric LVH 7 Chronic atrial fibrillation 8 Hypertension 9 Hyperlipidemia 10 Recurrent UTIs with E. coli 11 Previous history of subdural hematoma, questioning compliance/order of E liquis, unclear 12 Previous history of DVT: On adequate 13 Acute kidney injury: Gradual improvement in serum creatinine 2.2 from peak of 2.4, on diuretics. 14. Metabolic acidosis secondary to acute kidney injury: Bicarbonate of 21, continue oral bicarbonate. Disposition: Pending rehab
[2020-12-10] MEDS: SODIUM CHLORIDE 0.9% 1,000 ML IV SCH (17:27)
[2020-12-11] MEDS: SYMBICORT 160-4.5 MCG INHALER INHALATION SCH ×2 (07:35→19:52)
[2020-12-11] MEDS: IPRATROPIUM 0.5 MG/2.5 ML NEBU INHALATION SCH ×4 (07:35→20:15)
[2020-12-11 08:01] LABS: Anisocytosis Slight; Basophils % (A) 0 %; Eosinophils % (A) 0 %; HCT 38.4 % (34.0-46.0); Hypochromasia Moderate; Lymphocytes # (A) 0.9 k/uL (1.0-4.8); Lymphocytes % (A) 13 %; MCH 25.2 pg (25.0-35.0); MCHC 31.1 g/dL (31.0-37.0); MCV 80.8 fL (80.0-100.0); Mean Platelet Volume 11.6; Microcytosis Slight; Monocytes # (A) 0.4 k/uL (0-1.0); Monocytes % (A) 6 %; Neutrophils # (A) 5.2 k/uL (1.3-7.7); Neutrophils % (A) 79 %; Platelet Count 109 k/uL (150-450); RBC 4.75 m/uL (3.80-5.40); RDW 17.9 % (11.5-15.5); WBC 6.5 k/uL (3.8-10.6)
[2020-12-11] MEDS: ACETAMINOPHEN TAB 325 MG TAB PO PRN ×2 (08:33→19:49)
[2020-12-11] MEDS: FUROSEMIDE 10 MG/ML 2 ML VIAL IV SCH ×2 (08:33→19:48)
[2020-12-11] MEDS: SODIUM BICARBONATE TAB 650 MG TAB PO SCH ×2 (08:33→19:49)
[2020-12-11] MEDS: APIXABAN 2.5 MG TABLET PO SCH ×2 (08:33→19:49)
[2020-12-11 08:46] LABS: Calcium 9.3 mg/dL (8.4-10.2); Potassium 5.5 mmol/L (3.5-5.1); Total Bilirubin 2.9 mg/dL (0.2-1.3); Total Protein 5.5 g/dL (6.3-8.2)
--- NOTE | 2020-12-11 09:12 | PN ---
PROGRESS NOTE Mrs. Britton is an 85-year-old female with a known history of coronary artery disease, status post coronary artery bypass grafting, history of chronic persistent atrial fibrillation, history of severe pulmonary hypertension and chronic lung disease, who presented with progressive dyspnea and fatigue. She continued to be dyspneic although slightly better. She denies any chest pain. Her appetite has been poor. She denies any dizziness or palpitation. She denies any nausea. Her blood pressure is on the lower side. She has underwent a ventilation perfusion scan that showed low end of intermediate probability. She continues to be at this time on Eliquis 2.5 mg twice a day, Lasix 20 mg IV q.12 hours and spironolactone 25 mg daily. Her beta sravani has been on hold because of a low blood pressure. PHYSICAL EXAMINATION: Her blood pressure running in the 80s to low 90s with a heart rate in the 60s. LUNGS: With crackles bilaterally, no wheezes. HEART: Irregular, irregular. S1, S2. No S3 with a systolic murmur at the left lower sternal border. EXTREMITIES: With 2+ edema bilaterally. She had an echocardiogram that showed an ejection fraction 55% to 60% with moderate severe aortic and severe tricuspid regurgitation with severe pulmonary hypertension. IMPRESSION: 1. Progressive dyspnea multifactorial with evidence of severe pulmonary hypertension and known history of chronic pulmonary fibrosis. She may have an element of diastolic dysfunction heart failure. 2. History of chronic pulmonary fibrosis. 3. Chronic persistent atrial fibrillation. 4. History of coronary artery disease. 5. Hypertension. 6. Hyperlipidemia. 7. Renal function abnormalities, stabilizing. RECOMMENDATION: From the cardiac standpoint, I will continue IV diuretic for 24 hours, follow her renal function. We will follow heart rate to see if adjustment of her beta sravani dose needs to be done. Unfortunately, the prognosis is quite guarded. MMODL / IJN: [id number] /
[2020-12-11] MEDS: SPIRONOLACTONE 25 MG TAB PO SCH (12:42)
--- NOTE | 2020-12-11 12:52 | P.PN ---
Subjective Principal diagnosis: Remains on 4 L of oxygen. She is on 3 l of oxygen at home. No chest pain no abdominal pain, no nausea no vomiting. In bed, does not appear to be in distress No major clinical changes Objective - Vital Signs Vital signs: Vital Signs Temp 97.3 F L 12/11/20 08:18 Pulse 75 12/11/20 11:32 Resp 20 12/11/20 08:18 BP 92/52 12/11/20 08:18 Pulse Ox 96 12/11/20 08:18 Intake & Output 12/10/20 12/11/20 12/11/20 18:59 06:59 18:59 Intake Total 720 240 Output Total 400 400 400 Balance 320 -400 -160 Weight 57.5 kg 57 kg Intake: Oral 720 240 Output: Urine 400 400 400 Other: Voiding Method Indwelling Catheter Indwelling Catheter Indwelling Catheter - Exam GENERAL EXAM: Alert, oriented times one, comfortable HEAD: Normocephalic. EYES: Normal reaction of pupils, equal size. NECK: No masses, no JVD. CHEST: No chest wall deformity. LUNGS: Decreased breath sounds, no wheezing CVS: S1 and S2 normal with no audible murmur, regular rhythm. ABDOMEN: Soft nontender nondistended positive bowel sounds CENTRAL NERVOUS SYSTEM: No focal deficits, tone is normal in all 4 extremities. EXTREMITIES: There is no peripheral edema. No clubbing, no cyanosis. - Labs CBC & Chem 7: 12/11/20 05:43 12/11/20 05:43 Labs: Abnormal Lab Results - Last 24 Hours (Table) 12/11/20 12/11/20 Range/Units 05:43 05:43 RDW 17.9 H (11.5-15.5) % Plt Count 109 L (150-450) k/uL Lymphocytes # 0.9 L (1.0-4.8) k/uL Sodium 129 L (137-145) mmol/L Potassium 5.5 H (3.5-5.1) mmol/L Chloride 93 L (98-107) mmol/L BUN 79 H (7-17) mg/dL Creatinine 2.06 H (0.52-1.04) mg/dL Total Bilirubin 2.9 H (0.2-1.3) mg/dL AST 40 H (14-36) U/L Total Protein 5.5 L (6.3-8.2) g/dL Albumin 3.0 L (3.5-5.0) g/dL Microbiology - Last 24 Hours (Table) 12/08/20 15:05 Blood Culture - Preliminary Blood No Growth after 48 hours 12/08/20 13:38 Blood Culture - Preliminary Blood No Growth after 48 hours Assessment and Plan Assessment: 1 Acute on chronic hypoxic respiratory failure secondary to an acute exacerbation of diastolic congestive heart failure him a currently on diuretics with IV Lasix. continues to be on oxygen at 4 L of oxygen by nasal cannula. Her baseline is at 3. Continue oxygen bronchodilators and supportive care 2 Acute exacerbation of chronic obstructive pulmonary disease, with chronic hypoxic respiratory failure on home oxygen 3 Chronic pulmonary fibrosis with interstitial fibrotic changes 4 Atrial fibrillation with slow ventricular response, continue Eliquis , continue Lasix 5 Severe pulmonary hypertension secondary to chronic lung disease: On diuretics with Lasix and Aldactone 6 Preserved LV function, hyperdynamic, with an ejection fraction of 55-60% with moderate to severe aortic and severe tricuspid regurgitation with severe pulmonary hypertension: Cardiology following, continue IV diuretics 7 Chronic atrial fibrillation with pulmonary hypertension 8 Hypertension 9 Hyperlipidemia 10 Recurrent UTIs with E. coli 11 Previous history of subdural hematoma, questioning compliance: On Eliquis 12 Previous history of DVT: On adequate 13 Acute kidney injury: Gradual improvement in serum creatinine 2 from peak of 2.4, on diuretics. 14. Metabolic acidosis secondary to acute kidney injury: Bicarbonate 24, continue oral bicarbonate. 15. Mild hypokalemia: Potassium 5.5, monitor as patient is on Aldactone. Disposition: Pending rehab
[2020-12-11] MEDS: SODIUM CHLORIDE 0.9% 1,000 ML IV SCH (16:12)
[2020-12-12] MEDS: IPRATROPIUM 0.5 MG/2.5 ML NEBU INHALATION SCH ×4 (07:55→20:45)
[2020-12-12] MEDS: SYMBICORT 160-4.5 MCG INHALER INHALATION SCH ×2 (07:56→20:47)
[2020-12-12] MEDS: APIXABAN 2.5 MG TABLET PO SCH ×2 (08:33→20:40)
[2020-12-12] MEDS: SODIUM BICARBONATE TAB 650 MG TAB PO SCH ×2 (08:33→19:10)
[2020-12-12] MEDS: ACETAMINOPHEN TAB 325 MG TAB PO PRN (08:41)
[2020-12-12 08:59] LABS: Anisocytosis Slight; Basophils % (A) 0 %; Eosinophils % (A) 0 %; HCT 38.9 % (34.0-46.0); HGB 12.4 gm/dL (11.4-16.0); Hypochromasia Moderate; Lymphocytes # (A) 0.7 k/uL (1.0-4.8); Lymphocytes % (A) 9 %; MCH 25.6 pg (25.0-35.0); MCHC 31.8 g/dL (31.0-37.0); MCV 80.4 fL (80.0-100.0); Mean Platelet Volume 9.1; Microcytosis Slight; Monocytes # (A) 0.3 k/uL (0-1.0); Monocytes % (A) 4 %; Neutrophils % (A) 86 %; Platelet Count 103 k/uL (150-450); Poikilocytosis Slight; RBC 4.84 m/uL (3.80-5.40); RDW 18.2 % (11.5-15.5); WBC 8.1 k/uL (3.8-10.6)
[2020-12-12 09:05] LABS: Calcium 9.2 mg/dL (8.4-10.2); Total Bilirubin 3.1 mg/dL (0.2-1.3); Total Protein 5.5 g/dL (6.3-8.2)
[2020-12-12] MEDS: ONDANSETRON 4 MG/2 ML VIAL IVP PRN ×2 (09:07→15:52)
--- NOTE | 2020-12-12 09:36 | P.PN ---
Subjective HISTORY OF PRESENTING ILLNESS This is a pleasant 85-year-old female past medical history significant for with persistent atrial fibrillation on long-term anticoagulation, coronary artery disease status post bypass grafting in 1980 with MILLER to LAD, chronic diastolic heart failure, pulmonary hypertension, chronic hypoxic respiratory failure on home oxygen and history of right axillary arterial occlusion. She follows in the office with Dr. Garcia. She is seen and examined sitting up in the chair eating breakfast. She states she did not sleep well last night due to back discomfort. Breathing is improved but still not great. Blood pressure 90/59 heart rate 78 afebrile maintaining oxygen saturation on nasal cannula. Laboratory data reviewed, sodium 128, potassium 5.0, creatinine 2.07. PHYSICAL EXAMINATION CONSTITUTIONAL: No apparent distress. HEENT: Head is normocephalic. Pupils are equal, round. Sclerae anicteric. Mucous membranes of the mouth are moist. No JVD. No carotid bruit. CHEST EXAMINATION: Bibasilar rales and faint expiratory wheeze. No rhonchi. No chest wall tenderness is noted on palpation or with deep breathing. HEART EXAMINATION: Irregular rate and rhythm. S1, S2 heard. Systolic ejection murmur at the base, no gallops or rub. EXTREMITIES: 1+ peripheral pulses, bilateral lower extremity discoloration, 1+ bilateral lower extremity edema and no calf tenderness. ASSESSMENT Acute on chronic diastolic heart failure Severe pulmonary hypertension Hyponatremia Lactic acidosis Hyperkalemia, resolved Chronic persistent atrial fibrillation Coronary artery disease status post bypass grafting Chronic kidney disease Hypertension PLAN Continue current medical regimen with IV diuretics for another 24 hours. Repeat BMP in the morning. Remove yu catheter. Nurse Practitioner note has been reviewed, I agree with a documented findings and plan of care. Patient was seen and examined. Objective - Vital Signs Vital signs: Vital Signs Temp 97.8 F 12/12/20 07:43 Pulse 78 12/12/20 08:09 Resp 18 12/12/20 08:44 BP 90/59 12/12/20 07:43 Pulse Ox 93 L 12/12/20 07:43 Intake & Output 12/11/20 12/12/20 12/12/20 18:59 06:59 18:59 Intake Total 720 240 Output Total 550 225 Balance 170 -225 240 Weight 57 kg Intake: Oral 720 240 Output: Urine 550 225 Other: Voiding Method Indwelling Catheter Indwelling Catheter Indwelling Catheter - Labs CBC & Chem 7: 04/14/21 07:46 12/12/20 07:46 Labs: Abnormal Lab Results - Last 24 Hours (Table) 12/12/20 12/12/20 Range/Units 07:46 07:46 RDW 18.2 H (11.5-15.5) % Plt Count 103 L (150-450) k/uL Lymphocytes # 0.7 L (1.0-4.8) k/uL Sodium 128 L (137-145) mmol/L Chloride 92 L (98-107) mmol/L BUN 82 H (7-17) mg/dL Creatinine 2.07 H (0.52-1.04) mg/dL Total Bilirubin 3.1 H (0.2-1.3) mg/dL AST 39 H (14-36) U/L Total Protein 5.5 L (6.3-8.2) g/dL Albumin 3.0 L (3.5-5.0) g/dL Microbiology - Last 24 Hours (Table) 12/08/20 15:05 Blood Culture - Preliminary Blood No Growth after 72 hours 12/08/20 13:38 Blood Culture - Preliminary Blood No Growth after 72 hours
--- NOTE | 2020-12-12 09:49 | P.PN ---
Subjective Progress Note Date: 12/12/20 Principal diagnosis: Remains on 4 L of oxygen. She is on 3 l of oxygen at home. No chest pain no abdominal pain, no nausea no vomiting. Up in chair, not in distress. No major clinical changes Objective - Vital Signs Vital signs: Vital Signs Temp 97.8 F 12/12/20 07:43 Pulse 78 12/12/20 08:09 Resp 18 12/12/20 08:44 BP 90/59 12/12/20 07:43 Pulse Ox 93 L 12/12/20 07:43 Intake & Output 12/11/20 12/12/20 12/12/20 18:59 06:59 18:59 Intake Total 720 240 Output Total 550 225 100 Balance 170 -225 140 Weight 57 kg Intake: Oral 720 240 Output: Urine 550 225 100 Uretheral (Chamberlain) 100 Other: Voiding Method Indwelling Catheter Indwelling Catheter Indwelling Catheter - Exam GENERAL EXAM: Alert, oriented times one, comfortable HEAD: Normocephalic. NECK: No masses, no JVD. LUNGS: Decreased breath sounds, no wheezing CVS: S1 and S2 normal with no audible murmur, regular rhythm. ABDOMEN: Soft nontender nondistended positive bowel sounds CENTRAL NERVOUS SYSTEM: No focal deficits, tone is normal in all 4 extremities. EXTREMITIES: No clubbing cyanosis or edema - Labs CBC & Chem 7: 12/12/20 07:46 12/12/20 07:46 Labs: Abnormal Lab Results - Last 24 Hours (Table) 12/12/20 12/12/20 Range/Units 07:46 07:46 RDW 18.2 H (11.5-15.5) % Plt Count 103 L (150-450) k/uL Lymphocytes # 0.7 L (1.0-4.8) k/uL Sodium 128 L (137-145) mmol/L Chloride 92 L (98-107) mmol/L BUN 82 H (7-17) mg/dL Creatinine 2.07 H (0.52-1.04) mg/dL Total Bilirubin 3.1 H (0.2-1.3) mg/dL AST 39 H (14-36) U/L Total Protein 5.5 L (6.3-8.2) g/dL Albumin 3.0 L (3.5-5.0) g/dL Microbiology - Last 24 Hours (Table) 12/08/20 15:05 Blood Culture - Preliminary Blood No Growth after 72 hours 12/08/20 13:38 Blood Culture - Preliminary Blood No Growth after 72 hours Assessment and Plan Assessment: 1 Acute on chronic hypoxic respiratory failure secondary to an acute exacerbation of diastolic congestive heart failure currently on diuretics with IV Lasix. continues to be on oxygen at 4 L of oxygen by nasal cannula. Her baseline is at 3. Continue oxygen bronchodilators and supportive care 2 Acute exacerbation of chronic obstructive pulmonary disease, with chronic hypoxic respiratory failure on home oxygen 3 Chronic pulmonary fibrosis with interstitial fibrotic changes: Supportive care 4 Atrial fibrillation with slow ventricular response, continue Eliquis , continue Lasix 5 Severe pulmonary hypertension secondary to chronic lung disease: On diuretics with Lasix and Aldactone 6 Preserved LV function, hyperdynamic, with an ejection fraction of 55-60% with moderate to severe aortic and severe tricuspid regurgitation with severe pulmonary hypertension: Cardiology following, continue IV diuretics 7 Chronic atrial fibrillation with pulmonary hypertension 8 Hypertension,essential : monitor 9 Hyperlipidemia 10 Recurrent UTIs with E. coli 11 Previous history of subdural hematoma, questioning compliance: On Eliquis 12 Previous history of DVT: On adequate 13 Acute kidney injury: Gradual improvement in serum creatinine 2 from peak of 2.4, on diuretics. 14. Metabolic acidosis secondary to acute kidney injury: Bicarbonate 24, continue oral bicarbonate. 15. Mild hyperkalemia: Potassium 5.5, monitor as patient is on Aldactone( on hold) potassium down to 5. 16. Mild thrombocytopenia, monitor as patient is on adequate's 17. Hyponatremia: Monitor Disposition:to rehab likely tomorrow
[2020-12-12] MEDS ORDERED: SODIUM CHLORIDE 0.9% 1,000 ML IV ONE ×3 (13:54→15:38)
--- NOTE | 2020-12-12 14:43 | CDI ---
Documentation Clarification Form Date: 12/12/2020 02:32:48 PM From: Natali Valladares CCS, CCDS Admit Date: 12/08/2020 03:47:00 PM Patient Name: Karina Britton Visit Number: [id number] Discharge Date: ATTENTION: The Clinical Documentation Specialists (CDI) and [facility] Coding Staff appreciate your assistance in clarifying documentation. Please respond to the clarification below the line at the bottom and electronically sign. The CDI & [facility] Coding staff will review the response and follow-up if needed. Please note: Queries are made part of the Legal Health Record. If you have any questions, please contact the author of this message via ITS. Dr. Bao Hsu: Unspecified CKD is documented in the Cardiology Consult on 12/10 and in the 12/10 Pulmonary Progress Note without further specificity. Nephrology has not been consulted. Additional clarification regarding the stage of CKD is requested. 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 Patients Historical GFR: 04/09/2016: >60 Current GFR: 21, 24 Current BUN/Cr: 12/08: 88, 2.48; 12/09: 84, 2.29; 12/11: 79, 2.06; 12/12: 82, 2.07 Clinical Indicators: Presented to the ED on 12/08 with dizziness, increased SOB, weakness & nausea, some swelling in legs. ED Clinical Impression: Heart Failure Treatment: IV fluid 5000 mls @ 999 mls/hr q31M, IV Heparin drip, IV Lasix 40 mg q8Hr, IV Zofran, INH Ventolin, INH Symbicort, IV Lasix 60 mg sched, po NaBicarb 650 mg BID, INH Atrovent Please clarify the stage of the CKD, if known: [ ] CKD ruled out [ ] CKD Stage 2 (GFR 60-89) [ ] CKD Stage 3 (GFR 30-59) [ ] CKD Stage 3a (GFR 45-59) [ ] CKD Stage 3b (GFR 30-44) [ ] CKD Stage 4 (GFR 15-29) [ ] Other, please specify [ ] Unable to determine (Template Last revised: October 2020) CKD 4 MTDD
[2020-12-12] MEDS: FUROSEMIDE 10 MG/ML 2 ML VIAL IV SCH ×2 (14:52→21:56)
[2020-12-12] MEDS: SPIRONOLACTONE 25 MG TAB PO SCH (14:52)
[2020-12-12] MEDS ORDERED: NOREPINEPHRINE 4 MG in SODIUM CHLORIDE 0.9% 250 ML IV SCH (15:45)
[2020-12-12] MEDS: methylPREDNISolone SOD SUCCI 125 MG/2 ML VIAL IV SCH (15:52)
--- NOTE | 2020-12-12 16:14 | XR ---
EXAMINATION TYPE: XR chest 1V DATE OF EXAM: 12/12/2020 CLINICAL HISTORY: Difficulty breathing progress study. TECHNIQUE: Single AP portable upright view of the chest is obtained. COMPARISON: Chest x-ray from 4 days earlier FINDINGS: Overlying sternal wires and mediastinal clips redemonstrated. Persistent cardiomegaly with atherosclerotic thoracic aorta. Chronic parenchymal changes with stable right basilar opacity. Small left pleural effusion slightly larger. New left mid to lower lung opacity noted. Osseous structures remain demineralized. IMPRESSION: New left mid to lower lung reticulonodular infiltrates and/or edema. [id number] le ft pleural effusion slightly larger versus prior. Cardiomegaly and chronic changes with small to mode rate right pleural effusion and associated right lower lung infiltrate and/or atelectasis redemonstra janeen and thought stable.
[2020-12-12] MEDS: SODIUM CHLORIDE 0.9% 1,000 ML IV SCH (17:39)
[2020-12-12] MEDS ORDERED: methylPREDNISolone SOD SUCC 60 MG in SODIUM CHLORIDE 0.9% 100 ML IVPB SCH (18:00)
--- NOTE | 2020-12-12 18:41 | CT ---
EXAMINATION TYPE: CT abdomen pelvis wo con DATE OF EXAM: 12/12/2020 COMPARISON: None HISTORY: abdominal pain CT DLP: 417.4 mGycm Automated exposure control for dose reduction was used. Images obtained from the diaphragm to the floor the pelvis with no contrast. FINDINGS: There are bilateral pleural effusions. Heart is enlarged. There is no pericardial effusion. There is infiltrate and atelectasis at both lung bases. Spleen is intact. Stomach is intact. There is no pancr eatic mass. There are clips from cholecystectomy. There is no evidence of adrenal mass. Kidneys show no hydronephrosis. Abdominal aorta is atheromatous . There is no retroperitoneal adenopathy. There is mild abdominal ascites fluid. There is Chamberlain [address] ter in the urinary bladder. There are numerous sigmoid diverticula. I see no sign of diverticulitis. There is no evidence of a bowel obstruction. There is no sign of free air. There is extensive subcutaneous edema around the abdomen and pelvis. Lumbar vertebra have normal alig nment. There is 50% compression deformity of L3 vertebral body that appears old. The bony pelvis is i ntact. Hip joints are intact. IMPRESSION: Mild ascites. Pleural effusions. Subcutaneous edema. This could relate to anasarca. Cardiomegaly. Con gestive heart failure is possible. There is bilateral lower lobe pulmonary infiltrates and atelectasi s. Moderate colonic diverticulosis without diverticulitis.
[2020-12-12] MEDS: ALPRAZolam 0.25 MG TAB PO PRN (20:40)
[2020-12-13] MEDS: methylPREDNISolone SOD SUCCI 125 MG/2 ML VIAL IV SCH ×5 (00:21→23:51)
[2020-12-13] MEDS: SYMBICORT 160-4.5 MCG INHALER INHALATION SCH ×2 (08:23→20:11)
[2020-12-13] MEDS: IPRATROPIUM 0.5 MG/2.5 ML NEBU INHALATION SCH ×4 (08:23→20:11)
[2020-12-13] MEDS: SODIUM BICARBONATE TAB 650 MG TAB PO SCH ×2 (09:17→21:22)
[2020-12-13] MEDS: APIXABAN 2.5 MG TABLET PO SCH ×2 (09:17→21:34)
[2020-12-13] MEDS: SPIRONOLACTONE 25 MG TAB PO SCH (09:17)
[2020-12-13] MEDS: FUROSEMIDE 10 MG/ML 2 ML VIAL IV SCH ×2 (10:11→12:31)
--- NOTE | 2020-12-13 10:28 | P.PN ---
Subjective HISTORY OF PRESENTING ILLNESS This is a pleasant 85-year-old female past medical history significant for with persistent atrial fibrillation on long-term anticoagulation, coronary artery disease status post bypass grafting in 1980 with MILLER to LAD, chronic diastolic heart failure, pulmonary hypertension, chronic hypoxic respiratory failure on home oxygen and history of right axillary arterial occlusion. She follows in the office with Dr. Garcia. She is seen and examined sitting up in bed in no acute distress. She is tired and complaining of lower extremity pain. Her legs continues to be quite swollen. Unfortunately, her diuretics have been held by nursing due to hypotension. She was also given fluid boluses last night per PCP. Blood pressure 97/61 heart rate 70 afebrile and maintaining oxygen saturation on high flow nasal cannula. Her yu catheter was removed yesterday but had to be replaced due to urinary retention. Her urine output is minimal. Daily labs are PHYSICAL EXAMINATION CONSTITUTIONAL: No apparent distress. HEENT: Head is normocephalic. Pupils are equal, round. Sclerae anicteric. Mucous membranes of the mouth are moist. No JVD. No carotid bruit. CHEST EXAMINATION: Bibasilar rales and faint expiratory wheeze. No rhonchi. No chest wall tenderness is noted on palpation or with deep breathing. HEART EXAMINATION: Irregular rate and rhythm. S1, S2 heard. Systolic ejection murmur at the base, no gallops or rub. EXTREMITIES: 1+ peripheral pulses, bilateral lower extremity discoloration, 2+ bilateral lower extremity edema and no calf tenderness. ASSESSMENT Acute on chronic diastolic heart failure Severe pulmonary hypertension Hyponatremia Lactic acidosis Hyperkalemia, resolved Chronic persistent atrial fibrillation Coronary artery disease status post bypass grafting Chronic kidney disease Hypertension PLAN Add midodrine 5 mg TID. Please give the IV lasix and hold any further fluid administration due to fluid overload. Continue to monitor urine output closely. Nurse Practitioner note has been reviewed, I agree with a documented findings and plan of care. Patient was seen and examined. Objective - Vital Signs Vital signs: Vital Signs Temp 98.3 F 12/13/20 03:58 Pulse 70 12/13/20 03:58 Resp 22 12/13/20 03:58 BP 97/61 12/13/20 03:58 Pulse Ox 94 L 12/13/20 03:58 Intake & Output 12/12/20 12/13/20 12/13/20 18:59 06:59 18:59 Intake Total 480 Output Total 250 175 Balance 230 -175 Weight 57 kg Intake: Oral 480 Output: Urine 250 175 Uretheral (Yu) 250 Other: Voiding Method Indwelling Catheter Indwelling Catheter # Bowel Movements 2 - Labs CBC & Chem 7: 12/12/20 07:46 12/12/20 07:46 Labs: Abnormal Lab Results - Last 24 Hours (Table) 12/12/20 12/12/20 Range/Units 07:46 07:46 RDW 18.2 H (11.5-15.5) % Plt Count 103 L (150-450) k/uL Lymphocytes # 0.7 L (1.0-4.8) k/uL Sodium 128 L (137-145) mmol/L Chloride 92 L (98-107) mmol/L BUN 82 H (7-17) mg/dL Creatinine 2.07 H (0.52-1.04) mg/dL Total Bilirubin 3.1 H (0.2-1.3) mg/dL AST 39 H (14-36) U/L Total Protein 5.5 L (6.3-8.2) g/dL Albumin 3.0 L (3.5-5.0) g/dL Microbiology - Last 24 Hours (Table) 12/08/20 15:05 Blood Culture - Preliminary Blood No Growth after 96 hours 12/08/20 13:38 Blood Culture - Preliminary Blood No Growth after 96 hours
[2020-12-13] MEDS: MIDODRINE 5 MG TAB PO SCH ×4 (10:34→17:24)
[2020-12-13] MEDS ORDERED: SODIUM CHLORIDE 0.9% 1,000 ML IV ONE (10:36)
[2020-12-13 10:58] LABS: Anisocytosis Slight; Basophils % (A) 0 %; Eosinophils % (A) 0 %; HCT 40.6 % (34.0-46.0); HGB 12.1 gm/dL (11.4-16.0); Hypochromasia Marked; Lymphocytes # (A) 0.4 k/uL (1.0-4.8); Lymphocytes % (A) 4 %; MCH 24.9 pg (25.0-35.0); MCV 83.2 fL (80.0-100.0); Mean Platelet Volume 8.4; Monocytes # (A) 0.2 k/uL (0-1.0); Monocytes % (A) 2 %; Neutrophils # (A) 8.4 k/uL (1.3-7.7); Neutrophils % (A) 92 %; RBC 4.87 m/uL (3.80-5.40); RDW 18.2 % (11.5-15.5); WBC 9.1 k/uL (3.8-10.6)
[2020-12-13] MEDS ORDERED: FUROSEMIDE 10 MG/ML 2 ML VIAL IV STA (11:07)
[2020-12-13] MEDS ORDERED: FUROSEMIDE 10 MG/ML 2 ML VIAL ONE (11:09)
[2020-12-13 11:12] LABS: Albumin 2.8 g/dL (3.5-5.0); Calcium 8.5 mg/dL (8.4-10.2); Potassium 5.4 mmol/L (3.5-5.1); Total Bilirubin 3.1 mg/dL (0.2-1.3); Total Protein 5.4 g/dL (6.3-8.2)
--- NOTE | 2020-12-13 11:15 | P.PN ---
Subjective Progress Note Date: 12/13/20 This is a pleasant 85-year-old female patient who is a poor historian. She does have a history of chronic COPD, bilateral lower lobe pulmonary fibrosis and chronic hypoxic respiratory failure maintained on oxygen at 2 L/m per nasal cannula outpatient setting. She also has history of chronic atrial fibrillation maintained on Eliquis in the past unclear if she was on it recently, hypertension, congestive heart failure, secondary pulmonary hypertension, hyperlipidemia and DVT, renal disease, diverticulitis. Chest has history of coronary artery disease with previous coronary artery bypass grafting. Former smoker. She presented to the emergency room yesterday with complaints of shortness of breath, dry nonproductive cough, weakness and nausea. Some swelling of her lower extremities. Chest x-ray reveals small bilateral pleural effusions with compressive atelectasis. VQ scan revealed low end of intermediate probability for acute pulmonary embolism. The cultures reveal no growth to date. She is seen today in consultation on the selective care unit. She is currently resting fairly comfortably in bed. Alert and oriented times one. She is maintaining O2 saturations in the mid 90s on 4 L/m per nasal cannula. She's afebrile. Slightly hypotensive with systolic pressures in the 80s. White count 4.5. Hemoglobin 12.7. Platelet count 119. Lymphocytes 0.8. Sodium 127. Potassium 5.0. Creatinine 2.29. She is currently on a heparin drip. Symbicort, albuterol. IV diuretics. Currently in a negative balance. On today's evaluation of 12/10/2020, the patient is stable. The patient is currently on Lasix 20 mg IV every 12 hours. The patient on Symbicort and DuoNeb nebulized treatments around the clock. Doing well. IV fluids with normal and creatinine are both elevated and the sodium level is gradually improving. Troponin was 0.03 respectively 3 in the patient's COVID19 swab was negative. The patient is known to have COPD. The patient also has chronic bilateral pulmonary fibrosis and chronic hypoxic respiratory failure maintained on oxygen 2 L per minute nasal cannula. The patient has chronic atrial fibrillation maintained on Eliquis on outpatient basis and addition to multiple other comorbidities including CAD, previous bypass surgery, hypertension and hyperli pidemia and previous history of DVT and chronic kidney disease. The fluid balance is -800 mL over the past 24 hours. The BUN is 84 with a creatinine of 2.29 and it's improving compared to yesterday. Sodium level is up 127. The patient's troponin level was 0.033 respectively. On 12/13/2020 we were asked to see the patient again related to hypoxemia, shortness of breath and hypotension, yesterday rapid response team was called in regards to low blood pressures of 50/30, patient had been on Lasix 20 mg twice daily, she became dehydrated, her Lasix was placed on hold, patient was given 1 L and fluid bolus with improvement in her blood pressure. Overnight she continued to become more short of breath, and her blood pressures are currently with systolic in the 80s. She remains in atrial fibrillation, patient does have a history of chronic A. fib patient is on Eliquis for anticoagulation, she has had no fever or chills, she's had no nausea vomiting or diarrhea, her oral intake has been decreased, she is very weak, as an extensive medical history including history of chronic A. fib, chronic coronary fibrosis, moderately severe COPD, patient is on home oxygen, in addition patient has very pulmonary hypertension with the right-sided pressure of 73, severe tricuspid regurgitation, but preserved LV function with EF of 55-60%. He denies any chest pain, she seems very fatigued and weak, chest x-ray showed a new left mid to lower lung reticulonodular infiltrate and/or edema and small to moderate left pleural effusion which may have increased in size from prior exam. There is cardiomegaly and chronic changes with small to moderate right lower lobe effusion and associated right lower lung infiltrate and/or atelectasis. I work shows white blood cell count of 8.1, hemoglobin is 12.4, platelet count is 103, her serum sodium is 128 and patient has had a low serum sodiums ranging from 09/19/2016 129 on recent blood work and potassium of 5.0, BUN is 82, creatinine is 2.07, shows total bilirubin has been noted to be increased at 3.1, ALT is 39, AST and alk phos are within normal limits. Patient has wheezing noted on today's exam and her lungs, patient had been started on IV Solu-Medrol, she denies any cough or congestion, denies any chest pain. patient continues on breathing treatments. We will culture the bedside this morning in view of hypotension, and increased work of breathing, patient at that time was placed on BiPAP support with pressures of 10/5 and FiO2 100%, still tachypneic. She responded well to BiPAP, her pressures have been increased to 12/6, patient seems more comfortable, FiO2 is down to 90%, her pulse ox was up to 95%. Case with cardiology and they would like to continue with the Lasix and midodrine was added for blood pressure support Objective - Vital Signs Vital signs: Vital Signs Temp 96.1 F L 12/13/20 09:18 Pulse 72 12/13/20 10:59 Resp 18 12/13/20 10:59 BP 103/49 12/13/20 10:59 Pulse Ox 95 12/13/20 10:59 Intake & Output 12/12/20 12/13/20 12/13/20 18:59 06:59 18:59 Intake Total 480 180 Output Total 250 175 Balance 230 -175 180 Weight 57 kg Intake: Oral 480 180 Output: Urine 250 175 Uretheral (Chamberlain) 250 Other: Voiding Method Indwelling Catheter Indwelling Catheter Indwelling Catheter # Bowel Movements 2 - Exam GENERAL EXAM: Lethargic, quite frail looking 85-year-old female, currently on BiPAP support with 12/6 and FiO2 of 90% with a pulse ox of 92% comfortable in no apparent distress. HEAD: Normocephalic/atraumatic. EYES: Normal reaction of pupils, equal size. Conjunctiva pink, sclera white. NOSE: Clear with pink turbinates. THROAT: No erythema or exudates. NECK: No masses, positive JVD, no thyroid enlargement, no adenopathy. CHEST: No chest wall deformity. Symmetrical expansion. LUNGS: Equal air entry with diffuse wheezes CVS: Irregular rate and rhythm, normal S1 and S2, no gallops, no murmurs, no rubs ABDOMEN: Soft, nontender. No hepatosplenomegaly, normal bowel sounds, no guarding or rigidity. EXTREMITIES: No clubbing, no edema, no cyanosis, 2+ pulses and upper and lower extremities. MUSCULOSKELETAL: Muscle strength and tone normal. SPINE: No scoliosis or deformity SKIN: No rashes CENTRAL NERVOUS SYSTEM: Lethargic No focal deficits, tone is normal in all 4 extremities. - Labs CBC & Chem 7: 12/12/20 07:46 12/12/20 07:46 Labs: Microbiology - Last 24 Hours (Table) 12/08/20 15:05 Blood Culture - Preliminary Blood No Growth after 96 hours 12/08/20 13:38 Blood Culture - Preliminary Blood No Growth after 96 hours Assessment and Plan Plan: Assessment: 1 Acute on chronic hypoxic respiratory failure secondary to an acute exacerbation of diastolic congestive heart failure him a currently on diuretics with IV Lasix. The patient is currently on oxygen at 4 L of oxygen by nasal ca nnula. Her baseline is at 2. 2 Acute exacerbation of chronic obstructive pulmonary disease, on home oxygen 3 Chronic pulmonary fibrosis with interstitial fibrotic changes 4 Atrial fibrillation with slow ventricular response, currently on a heparin drip, questionable compliance with Eliquis 5 Severe pulmonary hypertension secondary to chronic lung disease 6 Preserved LV function, hyperdynamic, with an ejection fraction of 70% and mild concentric LVH 7 Chronic atrial fibrillation 8 Hypertension 9 Hyperlipidemia 10 Recurrent UTIs with E. coli 11 Previous history of subdural hematoma, questioning compliance/order of Eliquis, unclear 12 Previous history of DVT 13 Acute kidney injury 14 hypotension related to hypovolemic shock, dehydration, diuretic therapy 15 severe pulmonary hypertension with right-sided pressure of 73 mmHg Plan: Continue BiPAP support with pressures of 12/6 and FiO2 to keep O2 sat at or above 89-90%, continue IV Solu-Medrol, breathing treatments, we'll send procalcitonin level and proBNP level, without cardiology managed the diuretics and blood pressure medications, overall prognosis is extremely poor and guarded in view of multiple comorbidities, overall general medical debility, frailty, poor lung function, patient's CODE STATUS is DO NOT RESUSCITATE, continue supportively treating the patient, if no improvement recommend discussing palliative care hospice with the patient's family. Pulmonary critical-care we'll sign off and follow on as-needed basis I performed a history & physical examination of the patient and discussed their management with my nurse practitioner, Roula Shelton. I reviewed the nurse practitioner's note and agree with the documented findings and plan of care. Lung sounds are positive for diffuse wheezes throughout the lung kenny. The findings and the impression was discussed with the patient. I attest to the documentation by the nurse practitioner. Time with Patient: Less than 30
--- NOTE | 2020-12-13 12:26 | P.PN ---
Subjective Progress Note Date: 12/13/20 Principal diagnosis: Patient became worse last night requiring BiPAP. She also was hypotensive and required IV fluid resuscitation. She is currently on BiPAP. Objective - Vital Signs Vital signs: Vital Signs Temp 96.1 F L 12/13/20 09:18 Pulse 72 12/13/20 10:59 Resp 18 12/13/20 10:59 BP 103/49 12/13/20 10:59 Pulse Ox 95 12/13/20 10:59 Intake & Output 12/12/20 12/13/20 12/13/20 18:59 06:59 18:59 Intake Total 480 180 Output Total 250 175 Balance 230 -175 180 Weight 57 kg Intake: Oral 480 180 Output: Urine 250 175 Uretheral (Chamberlain) 250 Other: Voiding Method Indwelling Catheter Indwelling Catheter Indwelling Catheter # Bowel Movements 2 - Exam GENERAL EXAM: Alert, oriented times one, lethargic, on BiPAP HEAD: Normocephalic. NECK: No masses, no JVD. LUNGS: Decreased breath sounds, no wheezing CVS: S1 and S2 normal with no audible murmur, regular rhythm. ABDOMEN: Soft nontender nondistended positive bowel sounds CENTRAL NERVOUS SYSTEM: No focal deficits, tone is normal in all 4 extremities. EXTREMITIES: No clubbing cyanosis or edema - Labs CBC & Chem 7: 12/13/20 09:13 12/13/20 09:13 Labs: Abnormal Lab Results - Last 24 Hours (Table) 12/13/20 12/13/20 Range/Units 09:13 09:13 MCH 24.9 L (25.0-35.0) pg MCHC 30.0 L (31.0-37.0) g/dL RDW 18.2 H (11.5-15.5) % Sodium 126 L (137-145) mmol/L Potassium 5.4 H (3.5-5.1) mmol/L Chloride 94 L (98-107) mmol/L Carbon Dioxide 20 L (22-30) mmol/L BUN 84 H (7-17) mg/dL Creatinine 2.10 H (0.52-1.04) mg/dL Glucose 111 H (74-99) mg/dL Total Bilirubin 3.1 H (0.2-1.3) mg/dL AST 44 H (14-36) U/L Total Protein 5.4 L (6.3-8.2) g/dL Albumin 2.8 L (3.5-5.0) g/dL Microbiology - Last 24 Hours (Table) 12/08/20 15:05 Blood Culture - Preliminary Blood No Growth after 96 hours 12/08/20 13:38 Blood Culture - Preliminary Blood No Growth after 96 hours Assessment and Plan Assessment: 1 Acute on chronic hypoxic respiratory failure secondary to an acute exacerbation of diastolic congestive heart failure . With anasarca and pleural effusion She is on 3 L of oxygen at home, currently on BiPAP. Continue oxygen bronchodilators and supportive care. Appreciate pulmonology input. 2 Acute exacerbation of chronic obstructive pulmonary disease, with chronic hypoxic respiratory failure on home oxygen : Continue steroids 3 Chronic pulmonary fibrosis with interstitial fibrotic changes: Supportive care 4 Atrial fibrillation with slow ventricular response, continue Eliquis , continue Lasix as tolerated 5 Severe pulmonary hypertension secondary to chronic lung disease: On diuretics with Lasix and Aldactone, currently on hold secondary to hypotension. 6 Preserved LV function, hyperdynamic, with an ejection fraction of 55-60% with moderate to severe aortic and severe tricuspid regurgitation with severe pulmonary hypertension: Cardiology following, continue IV diuretics as tolerated 7 Chronic atrial fibrillation with pulmonary hypertension 8 Hypertension,essential : monitor 9 Hyperlipidemia 10 Recurrent UTIs with E. coli 11 Previous history of subdural hematoma, questioning compliance: On Eliquis 12 Previous history of DVT: On adequate 13 Acute kidney injury: Gradual improvement in serum creatinine 2 from peak of 2.4, on diuretics. 14. Metabolic acidosis secondary to acute kidney injury: Bicarbonate 24, continue oral bicarbonate. 15. Mild hyperkalemia: Potassium 5.4, monitor 16. Mild thrombocytopenia, monitor as patient is on adequate's 17. Hyponatremia: Monitor, serum sodium down to 126 18. Chronic kidney disease stage IV, serum creatinine 2.1 19. Hypotension: Continue IV fluids as tolerated Disposition: Pending clinical progression, poor prognosis. Treatment plan was discussed with the patient's family at bedside yesterday
[2020-12-13 13:28] LABS: Platelet Count 86 k/uL (150-450)
[2020-12-13 13:32] LABS: Poikilocytosis (M) Present; RBC Fragments Present
[2020-12-13] MEDS: ACETAMINOPHEN TAB 325 MG TAB PO PRN ×2 (16:00→21:34)
[2020-12-13] MEDS: ALPRAZolam 0.25 MG TAB PO PRN ×2 (16:01→21:34)
[2020-12-13] MEDS: SODIUM CHLORIDE 0.9% 1,000 ML IV SCH (17:11)
[2020-12-14] MEDS ORDERED: ALPRAZolam 0.5 MG TAB PO STA (03:02)
[2020-12-14] MEDS: methylPREDNISolone SOD SUCCI 125 MG/2 ML VIAL IV SCH ×2 (06:24→10:57)
[2020-12-14] MEDS: MIDODRINE 5 MG TAB PO SCH ×2 (06:24→09:44)
--- NOTE | 2020-12-14 08:46 | P.PN ---
Subjective Progress Note Date: 12/14/20 Principal diagnosis: Sleeping, not much responsive. Continues to be on BiPAP. Objective - Vital Signs Vital signs: Vital Signs Temp 98.0 F 12/13/20 20:00 Pulse 70 12/14/20 08:00 Resp 22 12/14/20 08:00 BP 89/59 12/14/20 04:00 Pulse Ox 92 L 12/14/20 04:00 Intake & Output 12/13/20 12/14/20 12/14/20 18:59 06:59 18:59 Intake Total 180 0 Output Total 200 150 Balance -20 -150 0 Weight 58 kg Intake: Oral 180 0 Output: Urine 200 150 Other: Voiding Method Indwelling Catheter Indwelling Catheter Indwelling Catheter - Exam GENERAL EXAM: Sleeping, on BiPAP. HEAD: Normocephalic. NECK: No masses, no JVD. LUNGS: Decreased breath sounds, no wheezing CVS: S1 and S2 normal with no audible murmur, regular rhythm. ABDOMEN: Soft nontender nondistended positive bowel sounds CENTRAL NERVOUS SYSTEM: No focal deficits, tone is normal in all 4 extremities. EXTREMITIES: No clubbing cyanosis or edema - Labs CBC & Chem 7: 12/13/20 09:13 12/13/20 09:13 Labs: Abnormal Lab Results - Last 24 Hours (Table) 12/13/20 12/13/20 12/13/20 Range/Units 09:13 09:13 09:13 MCH 24.9 L (25.0-35.0) pg MCHC 30.0 L (31.0-37.0) g/dL RDW 18.2 H (11.5-15.5) % Plt Count 86 L (150-450) k/uL Neutrophils # 8.4 H (1.3-7.7) k/uL Lymphocytes # 0.4 L (1.0-4.8) k/uL Sodium 126 L (137-145) mmol/L Potassium 5.4 H (3.5-5.1) mmol/L Chloride 94 L (98-107) mmol/L Carbon Dioxide 20 L (22-30) mmol/L BUN 84 H (7-17) mg/dL Creatinine 2.10 H (0.52-1.04) mg/dL Glucose 111 H (74-99) mg/dL Total Bilirubin 3.1 H (0.2-1.3) mg/dL AST 44 H (14-36) U/L Total Protein 5.4 L (6.3-8.2) g/dL Albumin 2.8 L (3.5-5.0) g/dL Procalcitonin 0.77 H (0.02-0.09) ng/mL Microbiology - Last 24 Hours (Table) 12/08/20 15:05 Blood Culture - Preliminary Blood No Growth after 120 hours 12/08/20 13:38 Blood Culture - Preliminary Blood No Growth after 120 hours Assessment and Plan Assessment: 1 Acute on chronic hypoxic respiratory failure secondary to an acute exacerbation of diastolic congestive heart failure . With anasarca and pleural effusion She is on 3 L of oxygen at home, currently on BiPAP. Continue BiPAP Continue oxygen bronchodilators Appreciate pulmonology input. 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 5 Severe pulmonary hypertension secondary to chronic lung disease: On diuretics with Lasix and Aldactone, currently on hold secondary to hypotension. 6 Preserved LV function, hyperdynamic, with an ejection fraction of 55-60% with moderate to severe aortic and severe tricuspid regurgitation with severe pulmonary hypertension: Cardiology following, continue IV diuretics as tolerated, on hold 7 Chronic atrial fibrillation with pulmonary hypertension 8 Hypertension,essential : monitor 9 Hyperlipidemia 10 Recurrent UTIs with E. coli 11 Previous history of subdural hematoma, questioning compliance: On Eliquis 12 Previous history of DVT: On adequate 13 Acute kidney injury: Gradual improvement in serum creatinine 2 from peak of 2.4. 14. Metabolic acidosis secondary to acute kidney injury: Bicarbonate 24, continue oral bicarbonate. 15. Mild hyperkalemia: Potassium 5.4, monitor 16. Mild thrombocytopenia, monitor as patient is on adequate's 17. Hyponatremia: Monitor, serum sodium down to 126 18. Chronic kidney disease stage IV, serum creatinine 2.1 19. Hypotension: Continue IV fluids as tolerated 20. Cytopenia, multifactorial, platelets down to 86, monitor as patient is on Eliquis Disposition: Pending clinical progression, poor prognosis.
[2020-12-14] MEDS: SYMBICORT 160-4.5 MCG INHALER INHALATION SCH (09:00)
[2020-12-14] MEDS: IPRATROPIUM 0.5 MG/2.5 ML NEBU INHALATION SCH ×3 (09:01→15:34)
--- NOTE | 2020-12-14 09:31 | P.PN ---
Subjective HISTORY OF PRESENTING ILLNESS This is a pleasant 85-year-old female past medical history significant for with persistent atrial fibrillation on long-term anticoagulation, coronary artery disease status post bypass grafting in 1980 with MILLER to LAD, chronic diastolic heart failure, pulmonary hypertension, chronic hypoxic respiratory failure on home oxygen and history of right axillary arterial occlusion. She follows in the office with Dr. Garcia. She is seen and examined resting comfortably in bed on Bipap. She was apparently quite restless through the night and was given a dose of xanax. This morning she is lethargic, probably from the xanax. Blood pressures continue to run low in the 70-80's systolic, heart rate in 70's, afebrile and maintaining oxygen saturation on bipap. Daily labs are pending. PHYSICAL EXAMINATION CONSTITUTIONAL: No apparent distress. Lethargic. HEENT: Head is normocephalic. Pupils are equal, round. Sclerae anicteric. Mucous membranes of the mouth are moist. No JVD. No carotid bruit. CHEST EXAMINATION: Bibasilar rales, no wheezes or rhonchi. No chest wall tenderness is noted on palpation or with deep breathing. HEART EXAMINATION: Irregular rate and rhythm. S1, S2 heard. Systolic ejection murmur at the base, no gallops or rub. EXTREMITIES: 1+ peripheral pulses, bilateral lower extremity discoloration, ANNE wrap to the left lower extremity and only trace edema on the right and no calf tenderness. ASSESSMENT Acute on chronic diastolic heart failure Severe pulmonary hypertension Hyponatremia Lactic acidosis Hyperkalemia, resolved Chronic persistent atrial fibrillation Coronary artery disease status post bypass grafting Chronic kidney disease Hypertension PLAN Discontinue diuretics. Her blood pressure will not tolerate, even with addition of midodrine. Continue bipap for respiratory support. Prognosis remains poor, consider comfort care measures. She is a NO CODE. Nurse Practitioner note has been reviewed, I agree with a documented findings and plan of care. Patient was seen and examined. Objective - Vital Signs Vital signs: Vital Signs Temp 98.0 F 12/13/20 20:00 Pulse 70 12/14/20 08:00 Resp 22 12/14/20 08:00 BP 89/59 12/14/20 04:00 Pulse Ox 92 L 12/14/20 04:00 Intake & Output 12/13/20 12/14/20 12/14/20 18:59 06:59 18:59 Intake Total 180 0 Output Total 200 150 Balance -20 -150 0 Weight 58 kg Intake: Oral 180 0 Output: Urine 200 150 Other: Voiding Method Indwelling Catheter Indwelling Catheter Indwelling Catheter - Labs CBC & Chem 7: 12/13/20 09:13 12/13/20 09:13 Labs: Abnormal Lab Results - Last 24 Hours (Table) 12/13/20 12/13/20 12/13/20 Range/Units 09:13 09:13 09:13 MCH 24.9 L (25.0-35.0) pg MCHC 30.0 L (31.0-37.0) g/dL RDW 18.2 H (11.5-15.5) % Plt Count 86 L (150-450) k/uL Neutrophils # 8.4 H (1.3-7.7) k/uL Lymphocytes # 0.4 L (1.0-4.8) k/uL Sodium 126 L (137-145) mmol/L Potassium 5.4 H (3.5-5.1) mmol/L Chloride 94 L (98-107) mmol/L Carbon Dioxide 20 L (22-30) mmol/L BUN 84 H (7-17) mg/dL Creatinine 2.10 H (0.52-1.04) mg/dL Glucose 111 H (74-99) mg/dL Total Bilirubin 3.1 H (0.2-1.3) mg/dL AST 44 H (14-36) U/L Total Protein 5.4 L (6.3-8.2) g/dL Albumin 2.8 L (3.5-5.0) g/dL Procalcitonin 0.77 H (0.02-0.09) ng/mL Microbiology - Last 24 Hours (Table) 12/08/20 15:05 Blood Culture - Preliminary Blood No Growth after 120 hours 12/08/20 13:38 Blood Culture - Preliminary Blood No Growth after 120 hours
[2020-12-14] MEDS ORDERED: SODIUM CHLORIDE 0.9% 1,000 ML IV ONE (09:39)
[2020-12-14] MEDS: ACETAMINOPHEN TAB 325 MG TAB PO PRN (09:44)
[2020-12-14] MEDS: APIXABAN 2.5 MG TABLET PO SCH (09:44)
[2020-12-14] MEDS: SODIUM BICARBONATE TAB 650 MG TAB PO SCH (09:44)
[2020-12-14 09:59] LABS: Calcium 8.5 mg/dL (8.4-10.2)
[2020-12-14 10:03] LABS: Potassium 5.6 mmol/L (3.5-5.1)
[2020-12-14 10:53] VITALS: BP 123/58; RESP 44; TEMP 97.9
[2020-12-14 10:55] VITALS: PULSE 70
[2020-12-14] MEDS: SODIUM CHLORIDE 0.9% 1,000 ML IV SCH (10:55)
[2020-12-14] MEDS: MORPHINE SULFATE 2 MG/ML SYRINGE IVP PRN ×2 (11:09→14:44)
[2020-12-14 12:06] LABS: Glucose,Whole Blood 97 mg/dL (75-99)
[2020-12-14] MEDS ORDERED: MORPHINE SULFATE 2 MG/ML SYRINGE IVP PRN (13:02)
--- NOTE | 2020-12-15 10:03 | P.DS ---
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 Patient says that she's been having 3 days worth of dizziness and feelings like she might pass out. She has never actually fell or syncopized. She also complains of increased shortness of breath and swelling in her lower extremities. Patient denies fevers, vomiting, abdominal pain, chest pain, palpitations, constipation, dysuria, numbness of her extremities. Patient reports chills, nausea, abdominal cramps, intermittent diarrhea, bilateral leg weakness. In the emergency room, she was noted to be in atrial fibrillation with slow ventricular rate, blood pressure stable, afebrile. Pertinent labs included INR of 2.0, PTT of 34.5, d-dimer 1.8, sodium of 124, BUN/creatinine of 88/2.5, lac tic acid 2.1. Troponin was 0.035. BNP was 11,500. Covid was negative. Chest x-ray demonstrated bilateral pleural effusions with some atelectasis in the bases. EKG demonstrated slow atrial fibrillation. Hospital course and treatment: Patient was admitted to the hospital with end-stage COPD on 3 L of oxygen. Acute on chronic systolic congestive heart failure as well as acute on chronic hypoxic respiratory failure. She was treated with oxygen bronchodilators and IV steroids. She was also treated with IV Lasix. Cardiology was consulted as well as pulmonology. Patient's condition deteriorated and patient became hypotensive as well as more hypoxic requiring BiPAP. With her underlying clinical condition she did not improve and continued to decline. Family decided on comfort care thus patient was discharged to hospice for comfort measures. Diagnoses upon discharge: 1. Acute on chronic hypoxic respiratory failure secondary to an acute exacerbation of diastolic congestive heart failure 2. 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 Chronic atrial fibrillation with pulmonary hypertension Patient Condition at Discharge: Critical Plan - Discharge Summary Discharge Rx Participant: No New Discharge Prescriptions: No Action atenoloL [Tenormin] 50 mg PO DAILY lisinopriL [Zestril] 5 mg PO DAILY #30 tab Tiotropium 18 Mcg/Puff [Spiriva] 1 cap INHALATION RT-DAILY Apixaban [Eliquis] 2.5 mg PO BID Albuterol Nebulized [Ventolin Nebulized] 2.5 mg INHALATION RT-QID PRN PRN Reason: Shortness Of Breath Budesonide-Formot 160-4.5 Mcg [Symbicort 160-4.5 Mcg Inhaler] 2 puff INHALATION RT-BID ALPRAZolam [Xanax] 0.25 mg PO BID PRN PRN Reason: Anxiety Spironolactone 25 mg PO DAILY Sodium Bicarbonate Tab 650 mg PO BID Furosemide [Lasix] 20 mg PO DAILY Discharge Medication List atenoloL [Tenormin] 50 mg PO DAILY 12/30/14 [History] lisinopriL [Zestril] 5 mg PO DAILY #30 tab 04/02/19 [Rx] Albuterol Nebulized [Ventolin Nebulized] 2.5 mg INHALATION RT-QID PRN 08/10/19 [History] Apixaban [Eliquis] 2.5 mg PO BID 08/10/19 [History] Tiotropium 18 Mcg/Puff [Spiriva] 1 cap INHALATION RT-DAILY 08/10/19 [History] Budesonide-Formot 160-4.5 Mcg [Symbicort 160-4.5 Mcg Inhaler] 2 puff INHALATION RT-BID 06/01/20 [History] ALPRAZolam [Xanax] 0.25 mg PO BID PRN 06/25/20 [History] Spironolactone 25 mg PO DAILY 06/25/20 [History] Furosemide [Lasix] 20 mg PO DAILY 12/08/20 [History] Sodium Bicarbonate Tab 650 mg PO BID 12/08/20 [History] Follow up Appointment(s)/Referral(s): Onelia Garcia MD [STAFF PHYSICIAN] - 2 Weeks Jose Almanza [STAFF PHYSICIAN] - 1-2 days Discharge Disposition: DC/TRNS IP HOSP W/[facility] IP READ
== END 2020-12-14 15:50 | disposition short-term general hospital, planned readmission (82) | DRG 291 ==
LOC: EC 12:53 → 3SCARD 15:47
PROVIDERS: ADMIT Internal Medicine; ATTEND Internal Medicine
PROC: 3E033XZ Introduction of Vasopressor into Peripheral Vein, Percutaneous Approach (ICD-10-PCS; 2020-12-12)
PROC: 5A09457 Assistance with Respiratory Ventilation, 24-96 Consecutive Hours, Continuous Positive Airway Pressure (ICD-10-PCS; principal; 2020-12-13)
PROC: 5A0935A Assistance with Respiratory Ventilation, Less than 24 Consecutive Hours, High Flow/Velocity Cannula (ICD-10-PCS; 2020-12-13)
DX: I13.0 Hypertensive heart and chronic kidney disease with heart failure and stage 1 through stage 4 chronic kidney disease, or unspecified chronic kidney disease (principal); J96.21 Acute and chronic respiratory failure with hypoxia; I50.43 Acute on chronic combined systolic (congestive) and diastolic (congestive) heart failure; R57.1 Hypovolemic shock; I48.21 Permanent atrial fibrillation; E87.2 Acidosis; N17.9 Acute kidney failure, unspecified; E87.1 Hypo-osmolality and hyponatremia; N18.4 Chronic kidney disease, stage 4 (severe); J44.1 Chronic obstructive pulmonary disease with (acute) exacerbation; J98.11 Atelectasis; R42 Dizziness and giddiness; I25.10 Atherosclerotic heart disease of native coronary artery without angina pectoris; Z99.81 Dependence on supplemental oxygen; Z86.73 Personal history of transient ischemic attack (TIA), and cerebral infarction without residual deficits; Z79.01 Long term (current) use of anticoagulants; Z79.51 Long term (current) use of inhaled steroids; Z79.82 Long term (current) use of aspirin; Z88.2 Allergy status to sulfonamides; E78.5 Hyperlipidemia, unspecified; I27.20 Pulmonary hypertension, unspecified; Z87.891 Personal history of nicotine dependence; Z95.1 Presence of aortocoronary bypass graft; Z82.49 Family history of ischemic heart disease and other diseases of the circulatory system; Z20.822 Contact with and (suspected) exposure to COVID-19; R00.1 Bradycardia, unspecified; F41.9 Anxiety disorder, unspecified; Z66 Do not resuscitate; J84.10 Pulmonary fibrosis, unspecified; Z87.440 Personal history of urinary (tract) infections; Z86.718 Personal history of other venous thrombosis and embolism; E87.6 Hypokalemia; I95.9 Hypotension, unspecified; D69.6 Thrombocytopenia, unspecified; Z51.5 Encounter for palliative care; E86.0 Dehydration; E87.5 Hyperkalemia; I07.1 Rheumatic tricuspid insufficiency; I73.00 Raynaud's syndrome without gangrene; Z79.899 Other long term (current) drug therapy; Z86.711 Personal history of pulmonary embolism
CPT/HCPCS: 36410; 36415; 71045; 71046; 74176; 76937; 78582; 80048; 80053; 81003; 83605; 83735; 83880; 84145; 84484; 85025; 85379; 85610; 85730; 87040; 87635; 93005; 93306; 94640; 94660; 94760; 96360; 99285

== ENCOUNTER 2020-12-14 15:34 | Inpatient (IN) | payer MEDICAID ==
[2020-12-14] MEDS ORDERED: ACETAMINOPHEN SUPPOSITORY 650 MG SUPP RECTAL PRN (15:35)
[2020-12-14] MEDS ORDERED: MORPHINE SULFATE 2 MG/ML SYRINGE IV PRN (15:35)
[2020-12-14] MEDS ORDERED: GLYCOPYRROLATE 0.2 MG/ML 2 ML VIAL IVP PRN (15:35)
[2020-12-14] MEDS ORDERED: ATROPINE OPHTH SOLN 1% 5ML BTL SUBLINGUAL PRN (15:35)
[2020-12-14] MEDS ORDERED: SCOPOLAMINE 1.5MG/72HR PATCH TRANSDERM SCH (15:45)
[2020-12-14] MEDS ORDERED: MORPHINE SULFATE (100 MG/2 ML) 100 MG in SODIUM CHLORIDE 0.9% 100 ML IV SCH (16:00)
[2020-12-14] MEDS: LORazepam 2 MG/ML INJ IV PRN ×2 (16:11→18:06)
[2020-12-15 01:51] VITALS: RESP 8
--- NOTE | 2020-12-15 10:09 | P.HPIM ---
History of Present Illness H&P Date: 12/14/20 Chief Complaint: Comfort Care This is an 85-year-old white female was admitted initially. Acute setting with acute on chronic hypoxic respiratory failure requiring BiPAP. She was also admitted with acute on chronic congestive heart failure. She clinically deteriorated and was placed on BiPAP. Family decided on comfort care. Patient is being admitted to hospice care for comfort measures. Review of Systems Unable to obtain secondary to patient being unresponsive Past Medical History Past Medical History: Atrial Fibrillation, Coronary Artery Disease (CAD), Heart Failure, COPD, Deep Vein Thrombosis (DVT) Additional Past Medical History / Comment(s): Hypertension, dyslipidemia, chronic atrial fibrillation, pulmonary fibrosis,, chronic hypoxic respiratory failure on 2 L nasal cannula, severe pulmonary hypertension, diverticulitis, raynauds, previous UTI with E. coli History of Any Multi-Drug Resistant Organisms: None Reported Past Surgical History: Cholecystectomy, Coronary Bypass/CABG, Tonsillectomy Additional Past Surgical History / Comment(s): subdural hematoma 2003, CABG apx. 30 years ago, bladder sling apx 2004 Past Anesthesia/Blood Transfusion Reactions: No Reported Reaction Past Psychological History: No Psychological Hx Reported Smoking Status: Former smoker Past Alcohol Use History: Occasional Past Drug Use History: None Reported - Past Family History Father Family Medical History: Congestive Heart Failure (CHF), Hypertension Additional Family Medical History / Comment(s): aneurysm Mother Family Medical History: Hypertension Medications and Allergies Home Medications Medication Instructions Recorded Confirmed Type atenoloL [Tenormin] 50 mg PO DAILY 12/30/14 12/14/20 History lisinopriL [Zestril] 5 mg PO DAILY #30 tab 04/02/19 12/14/20 Rx Albuterol Nebulized [Ventolin 2.5 mg INHALATION RT-QID PRN 08/10/19 12/14/20 History Nebulized] Apixaban [Eliquis] 2.5 mg PO BID 08/10/19 12/14/20 History Tiotropium 18 Mcg/Puff [Spiriva] 1 cap INHALATION RT-DAILY 08/10/19 12/14/20 History Budesonide-Formot 160-4.5 Mcg 2 puff INHALATION RT-BID 06/01/20 12/14/20 History [Symbicort 160-4.5 Mcg Inhaler] ALPRAZolam [Xanax] 0.25 mg PO BID PRN 06/25/20 12/14/20 History Spironolactone 25 mg PO DAILY 06/25/20 12/14/20 History Furosemide [Lasix] 20 mg PO DAILY 12/08/20 12/14/20 History Sodium Bicarbonate Tab 650 mg PO BID 12/08/20 12/14/20 History Allergies Allergy/AdvReac Type Severity Reaction Status Date / Time Sulfa (Sulfonamide Allergy Rash/Hives Verified 12/14/20 17:33 Antibiotics) sulfamethoxazole Allergy Rash/Hives Verified 12/14/20 17:33 [From Bactrim] Physical Exam Vitals: Vital Signs Resp 12/15/20 03:55 8 L 12/15/20 01:51 8 L 12/14/20 22:13 10 L 12/14/20 20:00 24 Intake and Output 12/14/20 12/15/20 12/15/20 22:59 06:59 14:59 Intake Total 5.389 Balance 5.389 Intake: Intake, IV Titration 5.389 Amount Morphine Sulfate (100 mg/ 5.389 2 ml) 100 mg In Sodium Chloride 0.9% 100 ml @ 1 MG/HR 1.02 mls/hr IV . Q24H [facility] Rx#:[id number] Oral 0 Other: Weight 58 kg Constitutional: Unresponsive Eyes: Anicteric sclerae ENMT: NC/AT Neck:Supple Lungs: Decreased breath sounds Cardiovascular: Heart regular in rate and rhythm Abdominal: Soft Nontender, non distended Extremities:No digital cyanosis No clubbing, Neuro: Unresponsive Assessment and Plan Plan: 1. Acute on chronic hypoxic respiratory failure secondary to an acute exacerbation of diastolic congestive heart failure 2. 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 Chronic atrial fibrillation with pulmonary hypertension Comfort Care only, morphine as indicated.
--- NOTE | 2020-12-15 10:12 | P.DS ---
Providers Date of admission: 12/14/20 15:57 Attending physician: Gab Gill Primary care physician: Milton Forbes MD Hospital Course: Diagnoses upon discharge: 1. Acute on chronic hypoxic respiratory failure secondary to an acute exacerbation of diastolic congestive heart failure 2. 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 Chronic atrial fibrillation with pulmonary hypertension HPI/hospital course and treatment Patient was admitted for comfort measures. She was initially admitted with acute on chronic hypoxic respiratory failure as well as acute on chronic congestive heart failure. She clinically deteriorated was placed on BiPAP and was taken off BiPAP. She is being admitted to hospice care for comfort measures. Patient subsequently secondary to acute on chronic hypoxic respiratory failure with end-stage COPD. She subsequently 12/15/2020 secondary to acute on chronic hypoxic respiratory Patient Condition at Discharge: Undetermined Plan - Discharge Summary New Discharge Prescriptions: No Action atenoloL [Tenormin] 50 mg PO DAILY lisinopriL [Zestril] 5 mg PO DAILY #30 tab Tiotropium 18 Mcg/Puff [Spiriva] 1 cap INHALATION RT-DAILY Apixaban [Eliquis] 2.5 mg PO BID Albuterol Nebulized [Ventolin Nebulized] 2.5 mg INHALATION RT-QID PRN PRN Reason: Shortness Of Breath Budesonide-Formot 160-4.5 Mcg [Symbicort 160-4.5 Mcg Inhaler] 2 puff INHALATION RT-BID ALPRAZolam [Xanax] 0.25 mg PO BID PRN PRN Reason: Anxiety Spironolactone 25 mg PO DAILY Sodium Bicarbonate Tab 650 mg PO BID Furosemide [Lasix] 20 mg PO DAILY Discharge Medication List atenoloL [Tenormin] 50 mg PO DAILY 12/30/14 [History] lisinopriL [Zestril] 5 mg PO DAILY #30 tab 04/02/19 [Rx] Albuterol Nebulized [Ventolin Nebulized] 2.5 mg INHALATION RT-QID PRN 08/10/19 [History] Apixaban [Eliquis] 2.5 mg PO BID 08/10/19 [History] Tiotropium 18 Mcg/Puff [Spiriva] 1 cap INHALATION RT-DAILY 08/10/19 [History] Budesonide-Formot 160-4.5 Mcg [Symbicort 160-4.5 Mcg Inhaler] 2 puff INHALATION RT-BID 06/01/20 [History] ALPRAZolam [Xanax] 0.25 mg PO BID PRN 06/25/20 [History] Spironolactone 25 mg PO DAILY 06/25/20 [History] Furosemide [Lasix] 20 mg PO DAILY 12/08/20 [History] Sodium Bicarbonate Tab 650 mg PO BID 12/08/20 [History] Discharge Disposition: - Preliminary Cause of Preliminary Cause of : Acute on chronic hypoxic respiratory failure
== END 2020-12-15 06:53 | disposition expired | DRG 951 ==
LOC: 3SCARD 15:57
PROVIDERS: ADMIT Internal Medicine; ATTEND Internal Medicine Hematology & Oncology
DX: Z51.5 Encounter for palliative care (principal); I50.33 Acute on chronic diastolic (congestive) heart failure; J96.21 Acute and chronic respiratory failure with hypoxia; I48.20 Chronic atrial fibrillation, unspecified; J44.1 Chronic obstructive pulmonary disease with (acute) exacerbation; E78.5 Hyperlipidemia, unspecified; I07.1 Rheumatic tricuspid insufficiency; I11.0 Hypertensive heart disease with heart failure; I25.10 Atherosclerotic heart disease of native coronary artery without angina pectoris; I27.20 Pulmonary hypertension, unspecified; I73.00 Raynaud's syndrome without gangrene; J84.10 Pulmonary fibrosis, unspecified; Z79.01 Long term (current) use of anticoagulants; Z79.51 Long term (current) use of inhaled steroids; Z79.899 Other long term (current) drug therapy; Z82.49 Family history of ischemic heart disease and other diseases of the circulatory system; Z87.440 Personal history of urinary (tract) infections; Z87.891 Personal history of nicotine dependence; Z95.1 Presence of aortocoronary bypass graft